=== PATIENT | female | born 1965 | race Caucasian/White ===

== ENCOUNTER 2021-01-11 17:44 | Inpatient (IN) | payer OTHER ==
[2021-01-11] MEDS ORDERED: NITROGLYCERIN OINT 1 INCH/GM PACKET TOPICAL STA (17:54)
[2021-01-11 17:56] LABS: Glucose,Whole Blood 109 mg/dL (75-99)
--- NOTE | 2021-01-11 17:58 | ED ---
General Adult HPI - General Chief complaint: Chest Pain Stated complaint: Chest Pain Time Seen by Provider: 01/11/21 17:44 Source: patient, EMS, RN notes reviewed, old records reviewed Mode of arrival: EMS Limitations: no limitations - History of Present Illness Initial comments: This is a 55-year-old female presents emergency Department with a past medical history significant for prolonged QT syndrome. Patient comes in today complaining of chest pain that started at 4:30. Patient states it radiates down her left arm into her back and up into her jaw. Patient denies shortness of breath patient denies any diaphoretic episodes. Patient states she's an occasional smoker with high blood pressure and high cholesterol and a positive family history for heart disease. Patient states the nitro may have helped just a little but the significant pain remains. Patient denies any recent fever chills or cough per patient denies any headache patient states she was lightheaded earlier and almost passed out she felt ground and did bump her chin. Patient denies any abdominal pain patient denies nausea vomiting diarrhea. - Related Data Allergies Allergy/AdvReac Type Severity Reaction Status Date / Time ondansetron [From Zofran] Allergy Abdominal Verified 01/11/21 17:46 Pain Review of Systems ROS Statement: Those systems with pertinent positive or pertinent negative responses have been documented in the HPI. ROS Other: All systems not noted in ROS Statement are negative. Past Medical History Past Medical History: Fibromyalgia Additional Past Medical History / Comment(s): Crohns, prolonged qt History of Any Multi-Drug Resistant Organisms: None Reported Past Surgical History: No Surgical Hx Reported Past Psychological History: Anxiety, Depression Smoking Status: Current every day smoker Past Alcohol Use History: None Reported Past Drug Use History: None Reported General Exam - General Exam Comments Initial Comments: GENERAL: Patient is well-developed and well-nourished. Patient is nontoxic and well- hydrated and is in mild distress. ENT: Neck is soft and supple. No significant lymphadenopathy is noted. Oropharynx is clear. Moist mucous membranes. Neck has full range of motion without eliciting any pain. EYES: The sclera were anicteric and conjunctiva were pink and moist. Extraocular movements were intact and pupils were equal round and reactive to light. Eyelids were unremarkable. PULMONARY: Unlabored respirations. Good breath sounds bilaterally. No audible rales rhonchi or wheezing was noted. CARDIOVASCULAR: There is a regular rate and rhythm without any murmurs gallops or rubs. ABDOMEN: Soft and nontender with normal bowel sounds. SKIN: Skin is clear with no lesions or rashes and otherwise unremarkable. NEUROLOGIC: Patient is alert and oriented x3. Cranial nerves II through XII are grossly int act. Motor and sensory are also intact. Normal speech, volume and content. Symmetrical smile. MUSCULOSKELETAL: Normal extremities with adequate strength and full range of motion. No lower extremity swelling or edema. No calf tenderness. LYMPHATICS: No significant lymphadenopathy is noted PSYCHIATRIC: Normal psychiatric evaluation. Limitations: no limitations Course Vital Signs 01/11/21 01/11/21 17:46 18:23 Temperature 97.6 F Pulse Rate 69 77 Respiratory 16 16 Rate Blood Pressure 103/64 118/80 O2 Sat by Pulse 97 95 Oximetry Medical Decision Making - Medical Decision Making EKG shows normal sinus rhythm at 60 bpm AK interval 154 QRS is 78 QT interval 476 QTC is 506. Patient's EKG shows no ST segment elevation that is significant. Patient does have inverted T waves in leads 3 and aVF which were not seen on the previous EKG. One of the EKGs that EMS transmitted to us came to us after the patient was in the emergency department and it does show some ST segment elevation in V2 V3 and V4 as well as the T-wave inversion in 3 and aVF. Though the criteria for STEMI on our EKG was not met the patient had significant symptoms of questionable EKG in route and so I had Dr. Forrester paged immediately her doctor to return the page at [phone] and wanted to STEMI called overhead so it was. Repeat EKG was done after the cath team was called in and it did show ST segment elevation for the first time in our department. EKG normal sinus rhythm at 72 bpm AK interval is 154 QRS was 82 QT intervals 468 QTC is 512. Patient's EKG showed ST segment elevation in V2 as well as 1 and aVL and T-wave inversions with some ST segment depression in 3 and aVF. Heparin was held because the patient's history of Crohn's disease and she was told not to take any blood thinners. Patient was given Lipitor. - Lab Data Result diagrams: 01/11/21 17:55 01/11/21 17:55 Lab Results 01/11/21 01/11/21 01/11/21 Range/Units 17:54 17:55 17:55 WBC 14.3 H (3.8-10.6) k/uL RBC 3.88 (3.80-5.40) m/uL Hgb 12.4 (11.4-16.0) gm/dL Hct 37.5 (34.0-46.0) % MCV 96.7 (80.0-100.0) fL MCH 32.1 (25.0-35.0) pg MCHC 33.2 (31.0-37.0) g/dL RDW 14.9 (11.5-15.5) % Plt Count 360 (150-450) k/uL MPV 6.9 Neutrophils % 67 % Lymphocytes % 25 % Monocytes % 4 % Eosinophils % 2 % Basophils % 0 % Neutrophils # 9.6 H (1.3-7.7) k/uL Lymphocytes # 3.5 (1.0-4.8) k/uL Monocytes # 0.6 (0-1.0) k/uL Eosinophils # 0.3 (0-0.7) k/uL Basophils # 0.1 (0-0.2) k/uL PT 10.7 (9.0-12.0) sec INR 1.0 (<1.2) APTT 29.3 (22.0-30.0) sec Sodium (137-145) mmol/L Potassium (3.5-5.1) mmol/L Chloride (98-107) mmol/L Carbon Dioxide (22-30) mmol/L Anion Gap mmol/L BUN (7-17) mg/dL Creatinine (0.52-1.04) mg/dL Est GFR (CKD-EPI)AfAm (>60 ml/min/1.73 sqM) Est GFR (CKD-EPI)NonAf (>60 ml/min/1.73 sqM) Glucose (74-99) mg/dL POC Glucose (mg/dL) 109 H (75-99) mg/dL POC Glu Leader Writer ID Selma Seema Calcium (8.4-10.2) mg/dL Magnesium (1.6-2.3) mg/dL Total Bilirubin (0.2-1.3) mg/dL AST (14-36) U/L ALT (4-34) U/L Alkaline Phosphatase (38-126) U/L Troponin I (0.000-0.034) ng/mL Total Protein (6.3-8.2) g/dL Albumin (3.5-5.0) g/dL 01/11/21 01/11/21 Range/Units 17:55 17:55 WBC (3.8-10.6) k/uL RBC (3.80-5.40) m/uL Hgb (11.4-16.0) gm/dL Hct (34.0-46.0) % MCV (80.0-100.0) fL MCH (25.0-35.0) pg MCHC (31.0-37.0) g/dL RDW (11.5-15.5) % Plt Count (150-450) k/uL MPV Neutrophils % % Lymphocytes % % Monocytes % % Eosinophils % % Basophils % % Neutrophils # (1.3-7.7) k/uL Lymphocytes # (1.0-4.8) k/uL Monocytes # (0-1.0) k/uL Eosinophils # (0-0.7) k/uL Basophils # (0-0.2) k/uL PT (9.0-12.0) sec INR (<1.2) APTT (22.0-30.0) sec Sodium 138 (137-145) mmol/L Potassium 3.8 (3.5-5.1) mmol/L Chloride 110 H (98-107) mmol/L Carbon Dioxide 21 L (22-30) mmol/L Anion Gap 7 mmol/L BUN 16 (7-17) mg/dL Creatinine 1.03 (0.52-1.04) mg/dL Est GFR (CKD-EPI)AfAm 71 (>60 ml/min/1.73 sqM) Est GFR (CKD-EPI)NonAf 61 (>60 ml/min/1.73 sqM) Glucose 113 H (74-99) mg/dL POC Glucose (mg/dL) (75-99) mg/dL POC Glu Leader Writer ID Calcium 8.6 (8.4-10.2) mg/dL Magnesium 1.8 (1.6-2.3) mg/dL Total Bilirubin 0.2 (0.2-1.3) mg/dL AST 21 (14-36) U/L ALT 13 (4-34) U/L Alkaline Phosphatase 89 (38-126) U/L Troponin I <0.012 (0.000-0.034) ng/mL Total Protein 6.7 (6.3-8.2) g/dL Albumin 3.7 (3.5-5.0) g/dL Critical Care Time Critical Care Time: Yes Total Critical Care Time: 35 Disposition Clinical Impression: Acute non-ST elevation myocardial infarction (NSTEMI) Disposition: ADMITTED IP TO THIS [facility] Time of Disposition: 18:34
[2021-01-11 18:13] LABS: Basophils # (A) 0.1 k/uL (0-0.2); Basophils % (A) 0 %; Eosinophils # (A) 0.3 k/uL (0-0.7); Eosinophils % (A) 2 %; HCT 37.5 % (34.0-46.0); HGB 12.4 gm/dL (11.4-16.0); Lymphocytes # (A) 3.5 k/uL (1.0-4.8); Lymphocytes % (A) 25 %; MCH 32.1 pg (25.0-35.0); MCHC 33.2 g/dL (31.0-37.0); MCV 96.7 fL (80.0-100.0); Mean Platelet Volume 6.9; Monocytes # (A) 0.6 k/uL (0-1.0); Monocytes % (A) 4 %; Neutrophils # (A) 9.6 k/uL (1.3-7.7); Neutrophils % (A) 67 %; Platelet Count 360 k/uL (150-450); RBC 3.88 m/uL (3.80-5.40); RDW 14.9 % (11.5-15.5); WBC 14.3 k/uL (3.8-10.6)
[2021-01-11 18:15] LABS: Partial Thromboplastin Time 29.3 sec (22.0-30.0); Prothrombin Time 10.7 sec (9.0-12.0)
[2021-01-11 18:17] LABS: Albumin 3.7 g/dL (3.5-5.0); Calcium 8.6 mg/dL (8.4-10.2); Magnesium 1.8 mg/dL (1.6-2.3); Potassium 3.8 mmol/L (3.5-5.1); Total Bilirubin 0.2 mg/dL (0.2-1.3); Total Protein 6.7 g/dL (6.3-8.2)
[2021-01-11] MEDS ORDERED: ATORVASTATIN 80 MG TAB PO STA (18:25)
--- NOTE | 2021-01-11 18:34 | XR ---
EXAMINATION TYPE: XR chest 1V DATE OF EXAM: 01/11/2021 COMPARISON: 10/20/2010 HISTORY: Chest pain TECHNIQUE: FINDINGS: Heart is normal. There is some interstitial density and subsegmental atelectasis left lung base. There are chest leads. There are no hilar masses. IMPRESSION: New interstitial density and subsegmental atelectasis in the left lower lobe compared to old exam.
[2021-01-11] MEDS ORDERED: LIDOCAINE 1% INJ 10MG/ML (20 ML MDV) SQ ONE (18:58)
[2021-01-11] MEDS ORDERED: MIDAZOLAM 2 MG/2 ML VIAL IV ONE (19:00)
[2021-01-11] MEDS ORDERED: HEPARIN SODIUM 1,000 UN/ML (10ML VL) ONE (19:02)
[2021-01-11] MEDS ORDERED: SODIUM CHLORIDE 0.9% 1,000 ML IV ONE (19:07)
[2021-01-11] MEDS ORDERED: TIROFIBAN 12.5MG-250ML NS 250 ML IV ONE ×2 (19:15)
[2021-01-11] MEDS ORDERED: TICAGRELOR 90 MG TAB ONE (19:18)
[2021-01-11] MEDS ORDERED: niCARdipine 25 MG/10 ML VIAL ONE (19:25)
[2021-01-11] MEDS ORDERED: TICAGRELOR 90 MG TAB PO ONE (19:30)
[2021-01-11] MEDS ORDERED: IOPAMIDOL-370 125ML BTL INJ ONE (19:31)
[2021-01-11] MEDS ORDERED: IOPAMIDOL-370 50ML BTL INJ ONE (19:35)
[2021-01-11 19:58] LABS: Glucose,Whole Blood 111 mg/dL (75-99)
[2021-01-11] MEDS: SODIUM CHLORIDE 0.9% 1,000 ML IV SCH (20:30)
[2021-01-11] MEDS ORDERED: HYOSCYAMINE SULFATE 0.125 MG TAB PO PRN (20:51)
[2021-01-11] MEDS ORDERED: PROCHLORPERAZINE 10 MG TAB PO PRN (20:51)
[2021-01-11] MEDS ORDERED: METOPROLOL TARTRATE 25 MG TAB PO SCH (21:00)
[2021-01-11] MEDS: LOSARTAN 25 MG TAB PO SCH (21:17)
--- NOTE | 2021-01-11 21:26 | P.HPIM ---
History of Present Illness H&P Date: 01/11/21 Chief Complaint: Chest pain History of presenting complaint: This is a pleasant 55-year-old patient of Dr. Deleon. She does follow with Dr. Angelo shepard from cardiology for arrhythmia's. She's had a prior cardiac ablation. Chronic stable medical conditions include fibromyalgia, hypertension, Crohn's, long QT, anxiety depression, arthritis. Patient been smoking off and on. Patient around 4:00 this afternoon became dizzy and nauseated developed back pain coming from the chest neck and left arm. Patient started perspiring. Decided to come into the hospital. She was taken to the director of cardiac cath lab she did get 2 stents and that's when her pain subsided. Currently nicely. Currently no chest pain. She was initially diagnosed to have acute ST elevation [place]. Review of systems: GEN.: Tired EYES: None HEENT: None NECK: None RESPIRATORY: As above CARDIOVASCULAR: As above GASTROINTESTINAL: None GENITOURINARY: None MUSCULOSKELETAL: Joint pains LYMPHATICS: None HEMATOLOGICAL: None PSYCHIATRY: None NEUROLOGICAL: None Past medical history to include: Fibromyalgia, hypertension, Crohn's disease, along daily, anxiety depression, osteomyelitis arthritis, Social history: This with 2 daughters. On disability. Smoking off and on. No alcohol. Family history: Reviewed, noncontributory to presentation Physical examination: VITAL SIGNS: 97.6, 69, 16, 103/64, 97% 2 L GENERAL: [BMI 39.9, laying in bed, awake. EYES: Pupils equal. Conjunctiva normal. HEENT: External appearance of nose and ears normal, oral cavity grossly normal. NECK: JVD not raised; masses not palpable. HEART: First and second heart sounds are normal; no edema. LUNGS: Respiratory rate normal; decreased breath sound. ABDOMEN: Soft, nontender, liver spleen not palpable, no masses palpable. PSYCH: Alert and oriented x3; mood and affect normal. NEUROLOGICAL: Cranial nerves grossly intact; no facial asymmetry, power and sensation grossly intact. LYMPHATICS: No lymph nodes palpable in the axilla and neck INVESTIGATIONS, reviewed in the clinical context: WBC 14.3 hemoglobin 12.4 platelets 360 potassium 3.8 creatinine 1.03 glucose 113 Troponin I less than 0.012 EKG tracing personally reviewed by az-ST elevation in lead V2 V3, ST depression in inferior leads Chest x-ray film personally reviewed by me-portable/no obvious infiltrate Assessment and plan: -Acute ST elevation myocardial infarction. Patient received 2 stents. Formal report pending. Aspirin, Lipitor, Brilinta -Obesity BMI 39.9 Dietitian. Weight loss measures -Essential hypertension Cozaar 25 mg daily. Lopressor 25 mg twice a day -Crohn's disease Mesalamine 0.375 g by mouth 4 times a day -Muscle spasm Baclofen 10 mg twice a day -Hyperlipidemia Lipitor 80 mg daily -Anxiety depression, controlled Patient to the ICU. Medications include aspirin Lipitor Cozaar. Lopressor. Brilinta. Follow with cardiology. 2-D echocardiogram. Care was discussed with the patient. Questions answered Past Medical History Past Medical History: Fibromyalgia, Hypertension Additional Past Medical History / Comment(s): Crohns, prolonged qt, anxiety, depression, arthritis, History of Any Multi-Drug Resistant Organisms: None Reported Past Surgical History: Appendectomy, Cardiac Ablation, Section, Heart Catheterization Additional Past Surgical History / Comment(s): heart cath 2009 approx. no interventions done, carpal tunnel surgery Past Anesthesia/Blood Transfusion Reactions: No Reported Reaction Past Psychological History: Anxiety, Depression Smoking Status: Current some day smoker Past Alcohol Use History: None Reported Past Drug Use History: None Reported Medications and Allergies Home Medications Medication Instructions Recorded Confirmed Type Adalimumab [Humira(Cf) Pen] 40 mg SQ MO 01/11/21 01/11/21 History Alendronate Sodium 70 mg PO FR 01/11/21 01/11/21 History Atorvastatin [Lipitor] 80 mg PO DAILY 01/11/21 01/11/21 History Baclofen [Lioresal] 10 mg PO BID 01/11/21 01/11/21 History Diphenoxylate HCl/Atropine 1 tab PO QID PRN 01/11/21 01/11/21 History [Lomotil 2.5-0.025 mg Tablet] Ergocalciferol [Vitamin D2 (1250 1,250 mcg PO STILL 01/11/21 01/11/21 History Mcg = 56733 Iu)] Famotidine [Pepcid] 40 mg PO DAILY 01/11/21 01/11/21 History Hyoscyamine Sulfate [Levsin] 0.125 mg PO Q4H PRN 01/11/21 01/11/21 History Magnesium Oxide 400 mg PO DAILY 01/11/21 01/11/21 History Mesalamine [Mesalamine ER] 0.375 gm PO QID 01/11/21 01/11/21 History Prochlorperazine [Compazine] 10 mg PO Q8H PRN 01/11/21 01/11/21 History Promethazine Suppository 25 mg RECTAL BID PRN 01/11/21 01/11/21 History [Phenergan] Spironolactone [Aldactone] 25 mg PO DAILY 01/11/21 01/11/21 History Triamcinolone 0.5% Cream [Kenalog 1 applic TOPICAL QID PRN 01/11/21 01/11/21 History 0.5% Cream] Valsartan 320 mg PO DAILY 01/11/21 01/11/21 History buPROPion HCL [buPROPion HCL SR] 150 mg PO DIRECTED 01/11/21 01/11/21 History busPIRone HCL 15 mg PO DIRECTED 01/11/21 01/11/21 History Allergies Allergy/AdvReac Type Severity Reaction Status Date / Time ondansetron [From Zofran] Allergy Abdominal Verified 01/11/21 20:45 Pain Physical Exam Vitals: Vital Signs Temp Pulse Resp BP Pulse Ox 01/11/21 18:23 77 16 118/80 95 01/11/21 17:46 97.6 F 69 16 103/64 97 Intake and Output 01/11/21 01/11/21 01/11/21 06:59 14:59 22:59 Intake Total 646 Balance 646 Intake: IV 646 Other: Weight 95.9 kg Results CBC & Chem 7: 01/11/21 17:55 01/11/21 17:55 Labs: Abnormal Lab Results - Last 24 Hours (Table) 01/11/21 01/11/21 01/11/21 Range/Units 17:54 17:55 17:55 WBC 14.3 H (3.8-10.6) k/uL Neutrophils # 9.6 H (1.3-7.7) k/uL Chloride 110 H (98-107) mmol/L Carbon Dioxide 21 L (22-30) mmol/L Glucose 113 H (74-99) mg/dL POC Glucose (mg/dL) 109 H (75-99) mg/dL 01/11/21 Range/Units 19:56 WBC (3.8-10.6) k/uL Neutrophils # (1.3-7.7) k/uL Chloride (98-107) mmol/L Carbon Dioxide (22-30) mmol/L Glucose (74-99) mg/dL POC Glucose (mg/dL) 111 H (75-99) mg/dL Thrombosis Risk Factor Assmnt - Choose All That Apply Each Factor Represents 1 point: Acute WA, Age 41-60 years Thrombosis Risk Factor Assessment Total Risk Factor Score: 2 Thrombosis Risk Factor Assessment Level: Low Risk
--- NOTE | 2021-01-11 21:26 | CONS ---
CONSULTATION CHIEF COMPLAINT: Chest pain. HISTORY OF PRESENT ILLNESS: This is a 55-year-old lady with history of dyslipidemia, prolonged QT interval, and hypertension who presented to the hospital complaining of sudden onset chest pain. Her chest discomfort started around 4:30 this evening and the patient continued to have chest pain that she describes as a pressure in the precordial area radiating to left arm. EKG shows sinus rhythm with ST elevations in 1 aVL and V2 with T-wave inversions in the inferior leads suggestive of acute anterolateral myocardial infarction. She has EKG changes are new compared to an EKG done in 2010. At the time of my evaluation, patient appears comfortable at rest, but still has chest pain and she is hemodynamically stable. Given her clinical presentation and EKG changes, I advised her to undergo emergent cardiac catheterization. She understood risks, benefits. PAST MEDICAL HISTORY: Significant for hypertension, dyslipidemia, arthritis. ALLERGIES: ZOFRAN. MEDICATIONS: Include atorvastatin 80 daily, bupropion 150 daily, famotidine, hyoscyamine, , spironolactone, magnesium, . FAMILY HISTORY: Significant for premature coronary artery disease in her brother. SOCIAL HISTORY: Significant for smoking. There is no history of EtOH abuse or drug abuse. REVIEW OF SYSTEMS: HEENT is unremarkable. CARDIAC as described above. RESPIRATORY as described above. GI negative. negative. ALLERGY/IMMUNOLOGY: Negative. SKIN negative. MUSCULOSKELETAL negative. ENDOCRINE negative. DERM: Negative. CONSTITUTIONAL negative. ONCOLOGICAL negative. TAFFY CANDY MAKER negative. PSYCHOSOCIAL negative. CONSTITUTIONAL negative. Rest of the system review is not relevant. EXAM: Comfortable at rest. Vital signs are stable. There is no jugular venous distention. Carotid upstroke is normal. There is no bruit. CHEST exam reveals good air entry bilaterally. HEART exam reveals first and second heart sounds. No gallop. No murmur. No rub. ABDOMEN is soft, nontender. Examination of EXTREMITIES did not reveal any edema. Peripheral pulses are felt. LABORATORY DATA: Labs are pending. ASSESSMENT: Acute anterolateral myocardial infarction. PLANS: The patient will undergo cardiac catheterization. Will decide on further course of action based on the cath findings. MMODL / IJN: [id number] /
--- NOTE | 2021-01-11 21:55 | PTCA ---
PERCUTANEOUSTRANS CORORONARY ANGIOGRAPHY DATE OF SERVICE: 01/11/2021. PROCEDURE: PTCA and stenting of a totally occluded proximal LAD in the setting of an acute anterior ST elevation DC. PERFORMED BY: Dr. Ana Bro. Moderate conscious sedation time was 32 minutes. The patient was administered Versed. Oxygen saturation, hemodynamics and EKG were monitored closely. CLINICAL HISTORY: Mrs. Kerry Garcia is a 55-year-old lady who smokes more than a pack a day, has hypertension, hypercholesterolemia, Crohn's disease and rheumatoid arthritis. She came into the hospital with chest pain, had anterior ST elevation that was more pronounced on a repeat EKG in the ER. She was seen and evaluated by Dr. Forrester who performed the cardiac cath which revealed total occlusion of the LAD after a small septal branch. There was a significant thrombus burden. I performed intervention expeditiously and then did selective angiography of the right coronary artery and checked LV pressures. PROCEDURE NOTE: The existing 6-Bulgarian introducer in the right femoral artery was used to perform procedure. JL3.5 guide catheter was used to cannulate the left coronary artery. A run- through wire was used to cross the lesion. A 15 mm long 3.0 NC Trek balloon was used to pre-dilate the lesion. I then deployed a 3.5 caliber 15 mm long Xience stent in the lesion just distal to the site of total occlusion and another 12 mm 4.0 caliber Xience stent proximal to the previous stent telescoping into it. The patient had some sluggish flow. I gave some nicardipine. The flow improved. Patient received heparin of about 6000 units and also Aggrastat infusion was given. ACT was 252. Excellent angiographic result was achieved with a good TAM-3 flow. Improvement in EKG and resolution of chest pain. The sheath was taken out and Angio-Seal device used to secure hemostasis. A Femstop was applied because of some oozing. Results were discussed with the patient. There was no family available. She was sent to the ICU in a stable condition. Excellent angiographic result without complication was achieved. Two drug-eluting stents were deployed in the totally occluded LAD with excellent angiographic result and flow. The RCA and circumflex are free of significant disease. The left ventricular end-diastolic pressure was elevated at 20 mmHg. There was no gradient across aortic valve. MMODL / IJN: [id number] /
--- NOTE | 2021-01-11 21:59 | CC ---
CARDIAC CATHETERIZATION REPORT INDICATION: Acute anterolateral myocardial infarction. PROCEDURE NOTE: After obtaining informed consent, left heart catheterization and coronary angiogram were performed via the right femoral artery using standard Tammy catheters. The patient tolerated the procedure well without any obvious immediate complications. Patient received moderate conscious sedation. Total sedation time was 10 minutes. I obtained images of the left system, the right system, and the hemodynamics were obtained by Dr. Ana Bro, the energy systems laboratory director, after he finished the angioplasty. FINDINGS: HEMODYNAMICS: Left ventricular end-diastolic pressure is 24 mm. There is no significant gradient across the aortic valve. LEFT VENTRICULOGRAM: Left ventriculogram was not performed. ANGIOGRAPHIC DATA: Left main coronary artery. Left main coronary artery is a normal-sized vessel and is free of stenosis. Divides into left anterior descending coronary artery and circumflex coronary artery. Circumflex coronary artery and its branches are free of significant stenosis. LAD is totally occluded in its proximal portion. Right coronary artery shows mild to moderate nonobstructive disease in the proximal portion. CONCLUSION: Acutely occluded left anterior descending coronary artery with acute anterior wall myocardial infarction. PLAN: Patient will undergo emergent angioplasty. MMODL / IJN: [id number] /
[2021-01-11] MEDS: BACLOFEN 10 MG TAB PO SCH (22:18)
[2021-01-11] MEDS: amLODIPine 10 MG TAB PO SCH (23:13)
[2021-01-11] MEDS: BALSALAZIDE DISODIUM 750 MG CAPSULE PO SCH (23:23)
[2021-01-12] MEDS ORDERED: LOSARTAN 25 MG TAB PO STA (01:38)
[2021-01-12 04:28] LABS: Basophils # (A) 0.1 k/uL (0-0.2); Basophils % (A) 0 %; Eosinophils % (A) 0 %; HCT 39.1 % (34.0-46.0); HGB 12.7 gm/dL (11.4-16.0); Lymphocytes # (A) 2.6 k/uL (1.0-4.8); Lymphocytes % (A) 18 %; MCH 31.7 pg (25.0-35.0); MCHC 32.5 g/dL (31.0-37.0); MCV 97.7 fL (80.0-100.0); Monocytes # (A) 0.4 k/uL (0-1.0); Monocytes % (A) 3 %; Neutrophils # (A) 11.4 k/uL (1.3-7.7); Neutrophils % (A) 78 %; Platelet Count 366 k/uL (150-450); RBC 4.01 m/uL (3.80-5.40); WBC 14.5 k/uL (3.8-10.6)
[2021-01-12 04:55] LABS: ALT 42 U/L (4-34); AST 337 U/L (14-36); African American GFR (CKD) >90 (>60 ml/min/1.73 sqM); Alkaline Phosphatase 96 U/L (38-126); Anion Gap 7 mmol/L; Blood Urea Nitrogen 13 mg/dL (7-17); Calcium 9.1 mg/dL (8.4-10.2); Carbon Dioxide 23 mmol/L (22-30); Chloride 106 mmol/L (98-107); Glucose 126 mg/dL (74-99); Non-African American GFR(CKD) 86 (>60 ml/min/1.73 sqM); Potassium 4.2 mmol/L (3.5-5.1); Sodium 136 mmol/L (137-145); Total Bilirubin 0.4 mg/dL (0.2-1.3); Total Protein 7.1 g/dL (6.3-8.2)
[2021-01-12] MEDS ORDERED: hydrALAZINE HCL 50 MG TAB PO SCH (05:30)
[2021-01-12] MEDS ORDERED: hydrALAZINE HCL 25 MG TAB PO SCH (05:45)
[2021-01-12] MEDS ORDERED: carvediloL 3.125 MG TAB PO SCH (08:30)
[2021-01-12] MEDS ORDERED: carvediloL 6.25 MG TAB PO SCH (08:30)
[2021-01-12] MEDS ORDERED: TICAGRELOR 90 MG TAB PO SCH (09:00)
[2021-01-12] MEDS ORDERED: METOPROLOL TARTRATE 50 MG TAB PO SCH (09:00)
[2021-01-12] MEDS ORDERED: ASPIRIN 81 MG PO SCH (09:00)
[2021-01-12] MEDS ORDERED: PROMETHAZINE 25 MG TAB PO PRN (09:37)
--- NOTE | 2021-01-12 09:51 | ECHOF ---
Referral Reason:s/p stemi with stent placement MEASUREMENTS -------- HEIGHT: 152.4 cm WEIGHT: 95.7 kg BP: RVIDd: 3.6 cm (< 3.3) IVSd: 1.5 cm (0.6 - 1.1) LVIDd: 5.3 cm (3.9 - 5.3) LVPWd: 1.3 cm (0.6 - 1.1) IVSs: 1.6 cm LVIDs: 4.7 cm LVPWs: 1.3 cm LAESV Index (A-L): 24.49 ml/m Ao Diam: 3.6 cm (2.0 - 3.7) AV Cusp: 1.3 cm (1.5 - 2.6) MV EXCURSION: 16.963 mm (> 18.000) MV EF SLOPE: 94 mm/s (70 - 150) EPSS: 0.4 cm MV E Terry: 0.56 m/s MV DecT: 226 ms MV A Terry: 0.94 m/s MV E/A Ratio: 0.60 RAP: 5.00 mmHg RVSP: 16.18 mmHg FINDINGS -------- Sinus rhythm. This was a techncally difficult study with suboptimal views, , Lumason utilized for enhancement of im ages. The left ventricular size is normal. There is moderate concentric left ventricular hypertrophy. O verall left ventricular systolic function is moderate-severely impaired with, an EF between 30 - 35 % . Anterseptal Hypokinesis Lateral hypokinesis Inferior Hypokinesis Septal Hypokinesis Beaumont Hypokinesis. The right ventricle is normal in size. Normal LA size by volume 22+/-6 ml/m2. The right atrial size is normal. 5.0mg OF Lumason UTLIZED: 2 OR MORE WALL SEGMENTS NOT VISUALIZED. There is mild aortic valve sclerosis. There is no evidence of aortic regurgitation. Mild mitral regurgitation is present. Mild tricuspid regurgitation present. Right ventricular systolic pressure is normal at < 35 mmHg. There is no pulmonic regurgitation present. There is a filling defect at the apex suggestive of apical thrombus Echo free space represents a pericardial fat pad. CONCLUSIONS -------- 1. This was a techncally difficult study with suboptimal views, , Lumason utilized for enhancement of images. 2. The left ventricular size is normal. 3. There is moderate concentric left ventricular hypertrophy. 4. Overall left ventricular systolic function is moderate-severely impaired with, an EF between 30 - 35 %. 5. Anterseptal Hypokinesis 6. Lateral hypokinesis 7. Inferior Hypokinesis 8. Septal Hypokinesis 9. Beaumont Hypokinesis. 10. The right ventricle is normal in size. 11. Normal LA size by volume 22+/-6 ml/m2. 12. The right atrial size is normal. 13. 5.0mg OF Lumason UTLIZED: 2 OR MORE WALL SEGMENTS NOT VISUALIZED. 14. There is mild aortic valve sclerosis. 15. Mild mitral regurgitation is present. 16. Mild tricuspid regurgitation present. 17. There is a filling defect at the apex suggestive of apical thrombus 18. Echo free space represents a pericardial fat pad. FOOD SERVER: Kait Frederick RDCS
--- NOTE | 2021-01-12 10:28 | P.PN ---
Subjective Progress Note Date: 01/12/21 HISTORY OF PRESENT ILLNESS: This is a 55-year-old female with a history of SVT and previous ablation and V. fib arrest after receiving Zofran with a prolonged QT who presented to the hospital yesterday with chest pain. Patient follows in the office with Dr. Lawrence. She was found to have a STEMI. She underwent cardiac catheterization with Dr. Forrester revealing acutely occluded left anterior descending artery with acute anterior wall myocardial infarction. Patient underwent LAD stenting [address] Bro. Patient examined this morning at the bedside. Patient currently denies chest pain or pressure she denies shortness of breath. PHYSICAL EXAM: VITAL SIGNS: Reviewed. GENERAL: Well-developed in no acute distress. NECK: Supple. No JVD or thyromegaly LUNGS: Respirations even and unlabored. Lungs essentially clear to auscultation bilaterally. HEART: Regular rate and rhythm. S1 and S2 heard. EXTREMITIES: Normal range of motion. No clubbing or cyanosis. Peripheral pulses intact. No lower extremity edema. Right groin soft with no hematoma noted. ASSESSMENT: STEMI, status post LAD stenting 2 Hypertension Hyperlipidemia Crohn's disease History of SVT with previous ablation History of V. fib arrest after receiving Zofran with prolonged QT PLAN: 2-D echo ordered. Await results Continue current cardiac medications including aspirin, Lipitor, Brilinta, and Cozaar Discontinue metoprolol. Change to Coreg 6.25mg BID Further recommendations pending patient course Nurse practitioner note has been reviewed by physician. Signing provider agrees with the documented findings, assessment, and plan of care. Objective - Vital Signs Vital signs: Vital Signs Temp 98 F 01/12/21 08:00 Pulse 96 01/12/21 10:00 Resp 36 H 01/12/21 10:00 BP 166/110 01/12/21 10:00 Pulse Ox 92 L 01/12/21 10:00 Intake & Output 01/11/21 01/12/21 01/12/21 18:59 06:59 18:59 Intake Total 1321 0 Output Total 1001 401 Balance 320 -401 Weight 93.44 kg 96 kg Intake: IV 1021 0 Sodium Chloride 0.9% 1, 375 0 000 ml @ 75 mls/hr IV . [id number] [facility] Rx#:[id number] Oral 300 Output: Urine 1000 400 Emesis 1 1 Other: # Voids 1 - Labs CBC & Chem 7: 01/12/21 04:05 01/12/21 04:05 Labs: Abnormal Lab Results - Last 24 Hours (Table) 01/11/21 01/11/21 01/11/21 Range/Units 17:54 17:55 17:55 WBC 14.3 H (3.8-10.6) k/uL Neutrophils # 9.6 H (1.3-7.7) k/uL Sodium (137-145) mmol/L Chloride 110 H (98-107) mmol/L Carbon Dioxide 21 L (22-30) mmol/L Glucose 113 H (74-99) mg/dL POC Glucose (mg/dL) 109 H (75-99) mg/dL AST (14-36) U/L ALT (4-34) U/L Troponin I (0.000-0.034) ng/mL 01/11/21 01/11/21 01/12/21 Range/Units 19:56 22:00 01:08 WBC (3.8-10.6) k/uL Neutrophils # (1.3-7.7) k/uL Sodium (137-145) mmol/L Chloride (98-107) mmol/L Carbon Dioxide (22-30) mmol/L Glucose (74-99) mg/dL POC Glucose (mg/dL) 111 H (75-99) mg/dL AST (14-36) U/L ALT (4-34) U/L Troponin I 106.000 H* 140.000 H* (0.000-0.034) ng/mL 01/12/21 01/12/21 Range/Units 04:05 04:05 WBC 14.5 H (3.8-10.6) k/uL Neutrophils # 11.4 H (1.3-7.7) k/uL Sodium 136 L (137-145) mmol/L Chloride (98-107) mmol/L Carbon Dioxide (22-30) mmol/L Glucose 126 H (74-99) mg/dL POC Glucose (mg/dL) (75-99) mg/dL AST 337 H (14-36) U/L ALT 42 H (4-34) U/L Troponin I (0.000-0.034) ng/mL
[2021-01-12] MEDS: amLODIPine 10 MG TAB PO SCH (11:57)
[2021-01-12] MEDS: BACLOFEN 10 MG TAB PO SCH ×2 (11:57→21:27)
[2021-01-12] MEDS: BALSALAZIDE DISODIUM 750 MG CAPSULE PO SCH ×3 (11:57→21:28)
[2021-01-12] MEDS: LOSARTAN 25 MG TAB PO SCH (11:57)
[2021-01-12] MEDS: SPIRONOLACTONE 25 MG TAB PO SCH (12:29)
[2021-01-12] MEDS: SCOPOLAMINE 1.5MG/72HR PATCH TRANSDERM SCH (13:00)
[2021-01-12] MEDS ORDERED: METOCLOPRAMIDE 5 MG/ML 2 ML VIAL IVP PRN (13:22)
--- NOTE | 2021-01-12 14:12 | P.PN ---
Progress Note - Text Progress Note Date: 01/12/21 Chief Complaint: Chest pain History of presenting complaint: This is a pleasant 55-year-old patient of Dr. Deleon. She does follow with Dr. Angelo shepard from cardiology for arrhythmia's. She's had a prior cardiac ablation. Chronic stable medical conditions include fibromyalgia, hypertension, Crohn's, long QT, anxiety depression, arthritis. Patient been smoking off and on. Patient around 4:00 this afternoon became dizzy and nauseated developed back pain coming from the chest neck and left arm. Patient started perspiring. Decided to come into the hospital. She was taken to the [facility] she did get 2 stents/PTCa proximally occluded LAD and that's when her pain subsided. Currently nicely. Currently no chest pain. She was initially diagnosed to have acute ST elevation OK. January 12: Overnight patient's blood pressure been running high. Having nausea vomiting. Different antiemetics were tried. I prescribed this morning scopolamine patch. Told to avoid water. Patient has a right groin FemoStop. Having right lower abdomen abdominal pain. Review of systems: Was done for constitutional, cardiovascular, GI, pulmonary. relevant finding as above Active Medications Apixaban (Apixaban 5 Mg Tab) 5 mg PO BID [facility]; Protocol Aspirin (Aspirin 81 Mg) 81 mg PO DAILY [facility] Last Admin: 01/12/21 11:57 Dose: Not Given Documented by: Atorvastatin Calcium (Atorvastatin 80 Mg Tab) [address] [facility] Baclofen (Baclofen 10 Mg Tab) 10 mg PO BID [facility] Last Admin: 01/12/21 11:57 Dose: Not Given Documented by: Balsalazide (Balsalazide Disodium 750 Mg Capsule) 2,250 mg PO TID [facility] Last Admin: 01/12/21 11:57 Dose: Not Given Documented by: Carvedilol (Carvedilol 6.25 Mg Tab) 6.25 mg PO BID-W/MEALS [facility] Last Admin: 01/12/21 11:57 Dose: Not Given Documented by: Hyoscyamine (Hyoscyamine Sulfate 0.125 Mg Tab) 0.125 mg PO Q4H PRN PRN Reason: ibs Metoclopramide HCl (Metoclopramide 5 Mg/Ml 2 Ml Vial) 10 mg IVP Q8H PRN PRN Reason: Nausea And Vomiting Last Admin: 01/12/21 13:33 Dose: 10 mg Documented by: Non-Formulary Medication (Adalimumab [Humira(Cf) Pen]) 40 mg SQ MO [facility] Promethazine HCl (Promethazine 25 Mg Tab) 25 mg PO Q6HR PRN PRN Reason: Vomiting Last Admin: 01/12/21 10:35 Dose: 25 mg Documented by: Scopolamine (Scopolamine 1.5mg/72hr Patch) 1 patch TRANSDERM Q72H [facility] Last Admin: 01/12/21 13:00 Dose: 1 patch Documented by: Spironolactone (Spironolactone 25 Mg Tab) 25 mg PO DAILY [facility] Last Admin: 01/12/21 12:29 Dose: Not Given Documented by: Ticagrelor (Ticagrelor 90 Mg Tab) 90 mg PO BID [facility] Last Admin: 01/12/21 11:57 Dose: Not Given Documented by: Valsartan (Valsartan 80 Mg Tab) 80 mg PO BID [facility] Past medical history to include: Fibromyalgia, hypertension, Crohn's disease, along daily, anxiety depression, osteomyelitis arthritis, Social history: This with 2 daughters. On disability. Smoking off and on. No alcohol. Family history: Reviewed, noncontributory to presentation Physical examination: VITAL SIGNS: 98, 95, 30, 156/95, 90% on room air GENERAL: Laying in bed, awake, but anxious EYES: Pupils equal. Conjunctiva normal. HEENT: External appearance of nose and ears normal, oral cavity grossly normal. NECK: JVD not raised; masses not palpable. HEART: First and second heart sounds are normal; no edema. LUNGS: Respiratory rate normal; decreased breath sound. ABDOMEN: Soft, right lower quadrant tenderness, no guarding rigidity, liver spleen not palpable, no masses palpable. Right groin FemoStop PSYCH: Alert and oriented x3; mood and affect normal. INVESTIGATIONS, reviewed in the clinical context: January 12: WBC 14.5 hemoglobin 12.7 potassium 4.2 creatinine 0.78 WBC 14.3 hemoglobin 12.4 platelets 360 potassium 3.8 creatinine 1.03 glucose 113 Troponin I less than 0.012 EKG tracing personally reviewed by me-ST elevation in lead V2 V3, ST depression in inferior leads Chest x-ray film personally reviewed by me-portable/no obvious infiltrate Assessment and plan: -Acute ST elevation myocardial infarction. Proximal LAD PTCA/ 2 stents. Aspirin, Lipitor, Brilinta -Obesity BMI 39.9 Dietitian. Weight loss measures -Essential hypertension Cozaar 25 mg daily. Coreg 6.25 twice a day. Valsartan 80 mg twice a day -Crohn's disease Mesalamine 0.375 g by mouth 4 times a day -Muscle spasm Baclofen 10 mg twice a day -Hyperlipidemia Lipitor 80 mg daily -Anxiety depression, controlled -Persistent nausea with some vomiting Scopolamine patch. Reglan 10 mg every 8. -Right lower quadrant tenderness. No guarding rigidity. FemoStop still in place from last night. stat CBC and a ultrasound While eyes during my dictation nurse told me that patient had a bloody bowel movement. GI has been consulted. Follow with cardiology. Right groin ultrasound-urgent. Follow
[2021-01-12] MEDS ORDERED: IOPAMIDOL CONTRAST (ORAL USE) VIAL PO PRN (14:47)
--- NOTE | 2021-01-12 15:09 | P.CONS ---
History of Present Illness - Reason for Consult Consult date: 01/12/21 Crohn's disease Requesting physician: Peewee Vallejo - Chief Complaint chest pain - History of Present Illness This is a 55-year-old white female with a past medical history of SVT with previous ablation and V. fib cardiac arrest after receiving Zofran for prolonged QT, fibromyalgia, anxiety, Crohn's disease, and current smoker who presented to the emergency department yesterday evening with complaints of chest pain that was radiating down her left arm and into her back and along her jaw. A STEMI was called on the patient and she went for cardiac catheterization and subsequently underwent LAD stenting 2 yesterday evening. She was given a dose of Brilinta yesterday evening. This morning she was given a dose of Eliquis and Brilinta however patient has had nausea and vomiting since this morning and was unable to keep any of her pills down. This afternoon she continues to have nausea and vomiting, abdominal pain, and had a large loose bowel movement with bright red blood, and multiple clots. The patient states she's started having abdominal pain this morning, she's had multiple episodes of nausea and vomiting. Patient has a history of Crohn's disease diagnosed approximately 30 years ago and at that time underwent a bowel resection. She has been seeing [facility] for treatment of her Crohn's disease. She takes Humira weekly, mesalamine, and Levsin for her Crohn's disease. She states her Crohn's has been under control. She states she does have 6-16 bowel movements a day, which are loose, nonbloody. Today is her first episode of having bloody bowel movement. She denies any coffee-ground emesis or hematemesis. States her last colonoscopy was less than 5 years ago at [facility], she was scheduled to have a colonoscopy on December 29 however her mother was in the hospital and she had to cancel. She's been afebrile. Patient states 10 years ago she had issues with her heart and was given anticoagulation and had a similar reaction with a lower GI hemorrhage. She states she had had multiple transfusions at that time. Admitting labs include WBC 14.3, hemoglobin 12.4, hematocrit 37, platelet count 360,000, total bilirubin 0.2, alkaline phosphatase 89, AST 21, ALT 13. Today's labs WBC 14.5, hemoglobin 12.7, hematocrit 39, platelet count 366,000, total bilirubin 0.4, alkaline phosphatase 96, AST 337, ALT 42. Review of Systems REVIEW OF SYSTEMS: CARDIOPULMONARY: Descended with chest pain. No complaints of chest pain or shortness of breath at this time. Gastrointestinal: Diffuse abdominal pain, greatest in lower abdomen.. Nausea and vomiting. No hematemesis, coffee-ground emesis. Diarrhea, bloody stool with clots. GENITOURINARY: No dysuria or hematuria. MUSCULOSKELETAL: Reports normal range of motion., Joint pain. SKIN: No rashes. No jaundice. ENDOCRINE: No chills, fevers. No excessive weight gain or loss. No polydipsia or polyuria. PSYCHIATRIC: Unremarkable. NEUROLOGY: No change in mental status. Denies dizziness, headache. ENT: Vision unremarkable. CONSTITUTIONAL: No recent weight loss. No fever, chills, night sweats. Past Medical History Past Medical History: Fibromyalgia, Hypertension Additional Past Medical History / Comment(s): Crohns, prolonged qt, anxiety, depression, arthritis, History of Any Multi-Drug Resistant Organisms: None Reported Past Surgical History: Appendectomy, Cardiac Ablation, Section, Heart Catheterization Additional Past Surgical History / Comment(s): heart cath 2009 approx. no interventions done, carpal tunnel surgery Past Anesthesia/Blood Transfusion Reactions: No Reported Reaction Past Psychological History: Anxiety, Depression Smoking Status: Current some day smoker Past Alcohol Use History: None Reported Past Drug Use History: None Reported Medications and Allergies Home Medications Medication Instructions Recorded Confirmed Type Adalimumab [Humira(Cf) Pen] 40 mg SQ MO 01/11/21 01/11/21 History Alendronate Sodium 70 mg PO FR 01/11/21 01/11/21 History Atorvastatin [Lipitor] 80 mg PO DAILY 01/11/21 01/11/21 History Baclofen [Lioresal] 10 mg PO BID 01/11/21 01/11/21 History Diphenoxylate HCl/Atropine 1 tab PO QID PRN 01/11/21 01/11/21 History [Lomotil 2.5-0.025 mg Tablet] Ergocalciferol [Vitamin D2 (1250 1,250 mcg PO STILL 01/11/21 01/11/21 History Mcg = 73088 Iu)] Famotidine [Pepcid] 40 mg PO DAILY 01/11/21 01/11/21 History Hyoscyamine Sulfate [Levsin] 0.125 mg PO Q4H PRN 01/11/21 01/11/21 History Magnesium Oxide 400 mg PO DAILY 01/11/21 01/11/21 History Mesalamine [Mesalamine ER] 0.375 gm PO QID 01/11/21 01/11/21 History Prochlorperazine [Compazine] 10 mg PO Q8H PRN 01/11/21 01/11/21 History Promethazine Suppository 25 mg RECTAL BID PRN 01/11/21 01/11/21 History [Phenergan] Spironolactone [Aldactone] 25 mg PO DAILY 01/11/21 01/11/21 History Triamcinolone 0.5% Cream [Kenalog 1 applic TOPICAL QID PRN 01/11/21 01/11/21 History 0.5% Cream] Valsartan 320 mg PO DAILY 01/11/21 01/11/21 History buPROPion HCL [buPROPion HCL SR] 150 mg PO BID 01/11/21 01/12/21 History busPIRone HCL 15 mg PO BID 01/11/21 01/12/21 History Allergies Allergy/AdvReac Type Severity Reaction Status Date / Time ondansetron [From Zofran] Allergy Abdominal Verified 01/11/21 20:45 Pain Physical Exam Vitals: Vital Signs Temp Pulse Resp BP Pulse Ox 01/12/21 14:00 98 36 H 183/94 94 L 01/12/21 13:00 95 13 158/99 94 L 01/12/21 12:00 100 18 157/121 93 L 01/12/21 11:00 112 H 11 L 168/105 95 01/12/21 10:00 96 36 H 166/110 92 L 01/12/21 09:00 95 32 H 156/95 90 L 01/12/21 08:00 98 F 79 21 169/85 92 L 01/12/21 07:00 93 16 166/94 90 L 01/12/21 06:30 87 27 H 178/94 90 L 01/12/21 06:00 73 29 H 171/116 92 L 01/12/21 05:30 79 15 159/115 90 L 01/12/21 05:00 66 21 161/108 91 L 01/12/21 04:30 77 24 161/105 92 L 01/12/21 04:00 98.0 F 67 20 162/113 94 L 01/12/21 03:30 78 20 165/108 91 L 01/12/21 03:00 73 24 177/98 96 01/12/21 02:30 67 22 172/87 91 L 01/12/21 02:00 80 22 172/112 91 L 01/12/21 01:30 67 29 H 170/90 92 L 01/12/21 01:00 69 20 155/111 94 L 01/12/21 00:30 75 16 161/110 93 L 01/12/21 00:00 97.7 F 70 28 H 143/108 94 L 01/11/21 23:30 69 33 H 164/106 96 01/11/21 23:00 64 26 H 175/103 91 L 01/11/21 22:30 73 24 153/107 95 01/11/21 22:00 70 14 153/113 96 01/11/21 21:30 98 22 157/100 93 L 01/11/21 21:00 85 18 150/98 93 L 01/11/21 20:30 84 14 154/101 91 L 01/11/21 18:23 77 16 118/80 95 01/11/21 17:46 97.6 F 69 16 103/64 97 Intake and Output 01/11/21 01/12/21 01/12/21 22:59 06:59 14:59 Intake Total 646 675 0 Output Total 1001 405 Balance 646 -326 -405 Intake: IV 646 375 0 Sodium Chloride 0.9% 1, 375 0 000 ml @ 75 mls/hr IV . [id number] [facility] Rx#:[id number] Oral 300 Output: Urine 1000 400 Emesis 1 5 Other: # Voids 1 # Bowel Movements 1 Weight 95.9 kg 96 kg General appearance: The patient is alert, oriented, appears in no acute distress. HET: Head is normocephalic and atraumatic. Conjunctiva pink. Sclera anicteric. Neck: Supple without lymphadenopathy. Trachea midline. Heart: S1 S2. Regular rate and rhythm. Lungs: Clear to auscultation. Abdomen: Soft, diffuse tenderness, greatest in lower abdomen, nondistended with bowel sounds. No guarding or rigidity. Skin: No rashes. No jaundice. Extremities: Normal skin color and turgor. No pedal edema. Neurological: No focal deficits. Alert and oriented 3.. Results CBC & Chem 7: 01/12/21 04:05 01/12/21 04:05 Labs: Abnormal Lab Results - Last 24 Hours (Table) 01/11/21 01/11/21 01/11/21 Range/Units 17:54 17:55 17:55 WBC 14.3 H (3.8-10.6) k/uL Neutrophils # 9.6 H (1.3-7.7) k/uL Sodium (137-145) mmol/L Chloride 110 H (98-107) mmol/L Carbon Dioxide 21 L (22-30) mmol/L Glucose 113 H (74-99) mg/dL POC Glucose (mg/dL) 109 H (75-99) mg/dL AST (14-36) U/L ALT (4-34) U/L Troponin I (0.000-0.034) ng/mL 01/11/21 01/11/21 01/12/21 Range/Units 19:56 22:00 01:08 WBC (3.8-10.6) k/uL Neutrophils # (1.3-7.7) k/uL Sodium (137-145) mmol/L Chloride (98-107) mmol/L Carbon Dioxide (22-30) mmol/L Glucose (74-99) mg/dL POC Glucose (mg/dL) 111 H (75-99) mg/dL AST (14-36) U/L ALT (4-34) U/L Troponin I 106.000 H* 140.000 H* (0.000-0.034) ng/mL 01/12/21 01/12/21 Range/Units 04:05 04:05 WBC 14.5 H (3.8-10.6) k/uL Neutrophils # 11.4 H (1.3-7.7) k/uL Sodium 136 L (137-145) mmol/L Chloride (98-107) mmol/L Carbon Dioxide (22-30) mmol/L Glucose 126 H (74-99) mg/dL POC Glucose (mg/dL) (75-99) mg/dL AST 337 H (14-36) U/L ALT 42 H (4-34) U/L Troponin I (0.000-0.034) ng/mL Assessment and Plan (1) Crohn's disease Narrative/Plan: 55-year-old who presented to the emergency department yesterday with complaints of chest pain radiating to her back and left arm and along jawline with a past medical history of Crohn's disease, SVT with previous ablation, V. fib arrest after receiving Zofran, anxiety, and fibromyalgia. STEMI was called on the patient, she underwent cardiac catheterization revealing an acutely occluded left anterior descending artery with acute anterior wall myocardial infarction. She then underwent LAD stenting 2. She was started on Brilinta and Eliquis. She did receive 1 dose of Brilinta yesterday evening. This morning she started with nausea and vomiting along with abdominal pain. She was unable to keep down her Brilinta on Eliquis. This afternoon she started having loose bowels with bright red blood and multiple clots. The patient has been maintained on Humira, mesalamine, and Levsin and followed with Day Lala from gastroenterology. Her last colonoscopy was less than [address] [facility]. She was scheduled to have a repeat colonoscopy on 12/29/2020 however had to cancel that appointment. States her Crohn's disease has been well-controlled, she does have 6-16 loose bowels daily however reports no bleeding. She is denying any coffee- ground emesis or hematemesis. Hemoglobin has been stable at 12.7. At this time there is no plan for any endoscopic evaluation due to recent [place] and cardiac stenting. Probable etiology of lower GI bleed is related to Crohn's exacerbation, we will order CT of the abdomen and pelvis and start patient on Solu-Medrol 20 mg every 8 hours. Current Visit: Yes Status: Acute Code(s): K50.90 - CROHN'S DISEASE, UNSPECIFIED, WITHOUT COMPLICATIONS SNOMED Code(s): 63897129 (2) Lower GI bleed Current Visit: Yes Status: Acute Code(s): K92.2 - GASTROINTESTINAL HEMORRHAGE, UNSPECIFIED SNOMED Code(s): 95622584 (3) Nausea and vomiting Current Visit: Yes Status: Acute Code(s): R11.2 - NAUSEA WITH VOMITING, UNSPECIFIED SNOMED Code(s): 13012427 (4) STEMI (ST elevation myocardial infarction) Narrative/Plan: Patient underwent LAD stenting 2 and is being followed closely by cardiology Current Visit: Yes Status: Acute Code(s): I21.3 - ST ELEVATION (STEMI) MYOCARDIAL INFARCTION OF [facility] SITE SNOMED Code(s): 61867615 Plan: 1. Patient may have clear liquid diet 2. Repeat CBC at 1800 3. Daily CBC, transfuse for hemoglobin less than 7 4. Hold Eliquis and Brilinta 5. CT of the abdomen and pelvis ordered 6. Continue antiemetics as needed 7. Pain medication as needed 8. Sed rate and CRP ordered 9. Start Solu-Medrol 20 mg IV every 8 hours Thank you for this consultation, we will continue to follow. Dr. Shelly Forrester I agree with the dictator's note, documented as a scribe by Nicky Mathew.
--- NOTE | 2021-01-12 15:36 | US ---
EXAMINATION TYPE: US lower ext pseudo artery RT DATE OF EXAM: 01/12/2021 COMPARISON: NONE CLINICAL HISTORY: 55-year-old female Acute right lower abdomen pain. Post cardiac cath. EXAM PERFORMED: Grayscale and color Doppler duplex imaging performed of the groin, post cardiac candi ter to assess for pseudoaneurysm. Membership Advisor notes: Exam done portable. SIDE PERFORMED: Right FINDINGS: Color and Waveform Doppler performed to assess for the presence of pseudoaneurysm; Is there ultrasound evidence of a pseudoaneurysm: no Is there evidence of AV shunting: no Is there a fluid collection present: no IMPRESSION: No sonographic evidence for right groin pseudoaneurysm or hematoma.
[2021-01-12] MEDS: methylPREDNISolone SOD SUCCI 40 MG/ML 1 ML VIAL IV SCH ×2 (16:13→23:59)
[2021-01-12] MEDS: MORPHINE SULFATE 2 MG/ML SYRINGE IVP PRN ×2 (16:22→21:16)
[2021-01-12] MEDS ORDERED: hydrALAZINE HCL 20 MG/ML 1 ML VIAL IVP PRN (16:29)
[2021-01-12] MEDS ORDERED: PROCHLORPERAZINE INJ 10 MG/2 ML VIAL IVP PRN (16:32)
[2021-01-12] MEDS ORDERED: SODIUM CHLORIDE 0.9% 1,000 ML IV ONE (16:33)
[2021-01-12] MEDS: PANTOPRAZOLE 40 MG/10 ML VIAL IVP SCH (16:46)
[2021-01-12] MEDS: METOPROLOL TARTRATE 5 MG/5 ML VIAL IVP SCH (16:46)
--- NOTE | 2021-01-12 17:04 | P.CNPUL ---
History of Present Illness Consult date: 01/12/21 Chief complaint: Acute STEMI, GI bleed History of present illness: 55-year-old female patient, presented to the hospital because of chest pain and she was diagnosed having an acute STEMI, taken to cardiac catheterization underwent emergent catheterization she was found to have disease involving the LAD. The patient underwent a opacity and stenting 2 with successful angiographic results. Left ventricular diastolic pressure was estimated to be around 20. The patient was started on accommodation of aspirin, Brilinta and Eliquis. She was admitted to the intensive care unit for further monitoring. She is known to have previous history of SVT that was ablated and she also has a previous history of atrial fibrillation induced by Zofran related prolongation of the QT. The patient is also known to have history of Crohn's disease with asthma relatively well controlled being followed up by cardiology and she has been maintained on a combination of mesalamine and Levsin. Note that this afternoon, the patient developed an acute GI bleed where she had large amount of bright red blood per rectum with passing of clots. She did also extensive abdominal cramping and she is also experiencing constant nausea and emesis. She is on essentially dry heaving as the patient has not been able to take any other oral medication no she has been able to take the anti-emetics. She is hemodynamically stable. No abdominal pain. Altered mentation. No chest pain. No respiratory difficulties. No aspiration. Her troponin peaked at 140. White cell cause of 14.5. The rest of the electrolytes are all within normal limits. Review of Systems Constitutional: Denies chills, Denies fever Eyes: denies as per HPI, denies blurred vision, denies bulging eye, denies decreased vision, denies diplopia, denies discharge, denies dry eye, denies irritation, denies itching, denies pain, denies photophobia, denies loss of peripheral vision, denies loss of vision, denies tunnel vision/blind spots Ears: deny: decreased hearing, ear discharge, earache, tinnitus Ears, nose, mouth and throat: Denies headache, Denies sore throat Breasts: absent: as per HPI, change in shape, gynecomastia, masses, nipple discharge, pain, skin changes, swelling Cardiovascular: Reports chest pain Respiratory: Reports as per HPI Gastrointestinal: Reports BRBPR, Reports loss of appetite, Reports nausea, Reports vomiting Genitourinary: Reports as per HPI Menstruation: Reports as per HPI Musculoskeletal: absent: ankle pain, ankle stiffness, ankle swelling Integumentary: Reports as per HPI Neurological: Reports as per HPI Psychiatric: Reports as per HPI Endocrine: Reports as per HPI, Reports fatigue Hematologic/Lymphatic: Reports as per HPI Allergic/Immunologic: Reports as per HPI Past Medical History Past Medical History: Fibromyalgia, Hypertension Additional Past Medical History / Comment(s): Crohns, prolonged qt, anxiety, depression, arthritis, History of Any Multi-Drug Resistant Organisms: None Reported Past Surgical History: Appendectomy, Cardiac Ablation, Section, Heart Catheterization Additional Past Surgical History / Comment(s): heart cath 2009 approx. no in terventions done, carpal tunnel surgery Past Anesthesia/Blood Transfusion Reactions: No Reported Reaction Past Psychological History: Anxiety, Depression Smoking Status: Current some day smoker Past Alcohol Use History: None Reported Past Drug Use History: None Reported Medications and Allergies Home Medications Medication Instructions Recorded Confirmed Type Adalimumab [Humira(Cf) Pen] 40 mg SQ MO 01/11/21 01/11/21 History Alendronate Sodium 70 mg PO FR 01/11/21 01/11/21 History Atorvastatin [Lipitor] 80 mg PO DAILY 01/11/21 01/11/21 History Baclofen [Lioresal] 10 mg PO BID 01/11/21 01/11/21 History Diphenoxylate HCl/Atropine 1 tab PO QID PRN 01/11/21 01/11/21 History [Lomotil 2.5-0.025 mg Tablet] Ergocalciferol [Vitamin D2 (1250 1,250 mcg PO STILL 01/11/21 01/11/21 History Mcg = 38967 Iu)] Famotidine [Pepcid] 40 mg PO DAILY 01/11/21 01/11/21 History Hyoscyamine Sulfate [Levsin] 0.125 mg PO Q4H PRN 01/11/21 01/11/21 History Magnesium Oxide 400 mg PO DAILY 01/11/21 01/11/21 History Mesalamine [Mesalamine ER] 0.375 gm PO QID 01/11/21 01/11/21 History Prochlorperazine [Compazine] 10 mg PO Q8H PRN 01/11/21 01/11/21 History Promethazine Suppository 25 mg RECTAL BID PRN 01/11/21 01/11/21 History [Phenergan] Spironolactone [Aldactone] 25 mg PO DAILY 01/11/21 01/11/21 History Triamcinolone 0.5% Cream [Kenalog 1 applic TOPICAL QID PRN 01/11/21 01/11/21 History 0.5% Cream] Valsartan 320 mg PO DAILY 01/11/21 01/11/21 History buPROPion HCL [buPROPion HCL SR] 150 mg PO BID 01/11/21 01/12/21 History busPIRone HCL 15 mg PO BID 01/11/21 01/12/21 History Allergies Allergy/AdvReac Type Severity Reaction Status Date / Time ondansetron [From Zofran] Allergy Abdominal Verified 01/11/21 20:45 Pain Physical Exam Vitals: Vital Signs Temp Pulse Resp BP Pulse Ox 01/12/21 16:00 98.5 F 98 23 168/94 95 01/12/21 15:00 85 16 170/84 94 L 01/12/21 14:00 98 36 H 183/94 94 L 01/12/21 13:00 95 13 158/99 94 L 01/12/21 12:00 100 18 157/121 93 L 01/12/21 11:00 112 H 11 L 168/105 95 01/12/21 10:00 96 36 H 166/110 92 L 01/12/21 09:00 95 32 H 156/95 90 L 01/12/21 08:00 98 F 79 21 169/85 92 L 01/12/21 07:00 93 16 166/94 90 L 01/12/21 06:30 87 27 H 178/94 90 L 01/12/21 06:00 73 29 H 171/116 92 L 01/12/21 05:30 79 15 159/115 90 L 01/12/21 05:00 66 21 161/108 91 L 01/12/21 04:30 77 24 161/105 92 L 01/12/21 04:00 98.0 F 67 20 162/113 94 L 01/12/21 03:30 78 20 165/108 91 L 01/12/21 03:00 73 24 177/98 96 01/12/21 02:30 67 22 172/87 91 L 01/12/21 02:00 80 22 172/112 91 L 01/12/21 01:30 67 29 H 170/90 92 L 01/12/21 01:00 69 20 155/111 94 L 01/12/21 00:30 75 16 161/110 93 L 01/12/21 00:00 97.7 F 70 28 H 143/108 94 L 01/11/21 23:30 69 33 H 164/106 96 01/11/21 23:00 64 26 H 175/103 91 L 01/11/21 22:30 73 24 153/107 95 01/11/21 22:00 70 14 153/113 96 01/11/21 21:30 98 22 157/100 93 L 01/11/21 21:00 85 18 150/98 93 L 01/11/21 20:30 84 14 154/101 91 L 01/11/21 18:23 77 16 118/80 95 01/11/21 17:46 97.6 F 69 16 103/64 97 Intake and Output 01/12/21 01/12/21 01/12/21 06:59 14:59 22:59 Intake Total 675 0 0 Output Total 1001 405 0 Balance -326 -405 0 Intake: IV 375 0 0 Sodium Chloride 0.9% 1, 375 0 0 000 ml @ 75 mls/hr IV . [id number] [facility] Rx#:[id number] Oral 300 Output: Urine 1000 400 0 Emesis 1 5 Other: # Voids 1 # Bowel Movements 1 Weight 96 kg Gen. appearance the patient seems to be nauseated yet, and comfortable. Not in acute distress distress. Head exam was generally normal. There was no scleral icterus or corneal arcus. Mucous membranes were moist. Neck was supple and without jugular venous distension, thyromegaly, or carotid bruits. Carotids were easily palpable bilaterally. There was no adenopathy. Lungs sounds are diminished otherwise clear Cardiac exam revealed the PMI to be normally situated and sized. The rhythm was regular and no extrasystoles were noted during several minutes of auscultation. The first and second heart sounds were normal and physiologic splitting of the second heart sound was noted. There were no murmurs, rubs, clicks, or gallops. Abdominal exam revealed normal bowel sounds. The abdomen was soft, non-tender, and without masses, organomegaly, or appreciable enlargement of the abdominal aorta. Minimal tenderness upon palpation of the anterior abdominal wall. No rebound tensile guarding. This is a soft abdomen general. Examination of the extremities revealed easily palpable radial, femoral and pedal pulses. There was no cyanosis, clubbing or edema. Examination of the skin revealed no evidence of significant rashes, suspicious appearing nevi or other concerning lesions. Neurologically, the patient is awake and alert and the patient does not have any focal neurological deficit. Cranial nerves are essentially intact. Results - Laboratory Findings CBC and BMP: 01/12/21 04:05 01/12/21 04:05 PT/INR, D-dimer PT 10.7 sec (9.0-12.0) 01/11/21 17:55 INR 1.0 (<1.2) 01/11/21 17:55 Abnormal lab findings: Abnormal Labs 01/11/21 01/11/21 01/11/21 17:54 17:55 17:55 WBC 14.3 H Neutrophils # 9.6 H Sodium Chloride 110 H Carbon Dioxide 21 L Glucose 113 H POC Glucose (mg/dL) 109 H AST ALT Troponin I 01/11/21 01/11/21 01/12/21 19:56 22:00 01:08 WBC Neutrophils # Sodium Chloride Carbon Dioxide Glucose POC Glucose (mg/dL) 111 H AST ALT Troponin I 106.000 H* 140.000 H* 01/12/21 01/12/21 04:05 04:05 WBC 14.5 H Neutrophils # 11.4 H Sodium 136 L Chloride Carbon Dioxide Glucose 126 H POC Glucose (mg/dL) AST 337 H ALT 42 H Troponin I - Diagnostic Findings Chest x-ray: image reviewed Assessment and Plan Plan: 1 acute sigmoid elevation myocardial infarction, anterior wall, post cardiac catheterization and stenting of the LAD 2. Currently free of any chest pain and the patient is hemodynamic is stable. 2 acute lower GI bleeding currently under investigation. She is known to have underlying of some other bowel disease/Crohn's disease which has been essentially under adequate control prior to this acute cardiac event. She has been maintained on mesalamine and Levsin. Noted the patient has taken a combination of aspirin, Brilinta andEliquis post cardiac procedures 3 nausea and emesis, currently under investigation.. Of concern is a previous history of Zofran induced QT prolongation with cardiac arrest. 4 history of Crohn's disease 5 history of prolongation of QT interval secondary to Zofran with subsequent cardiac arrest 6 depression 7 fibromyalgia 8 hypertension Plan Give the patient bolus of 1 L of normal saline Give the patient hydralazine 10 mg IV every 4-6 hours for systolic blood pressure below 160 Give the patient IV Lopressor 5 mg every 6 hours as the patient is unable to take oral Coreg Give the patient Compazine and monitor QT prolongation. Stop for masses in which the patient is unable to take. Stop Reglan. Monitor hemoglobin and watch for any signs of GI bleed We'll coordinate with gastroenterology and cardiology his antiplatelet agents. For now the patient is off the aspirin and Brilinta and Eliquis CAT scan of the abdomen is to follow with oral contrast IV Solu Medrol regarding any Crohn's disease activity and the patient is currently on 20 mg IV every 8 hours Add IV Protonix Keep the patient ICU and will continue to follow.
[2021-01-12 17:47] LABS: HCT 40.4 % (34.0-46.0); HGB 13.7 gm/dL (11.4-16.0); MCH 32.8 pg (25.0-35.0); MCHC 33.9 g/dL (31.0-37.0); MCV 96.8 fL (80.0-100.0); Mean Platelet Volume 7.5; Platelet Count 343 k/uL (150-450); RBC 4.17 m/uL (3.80-5.40); RDW 14.9 % (11.5-15.5); WBC 16.1 k/uL (3.8-10.6)
[2021-01-12] MEDS ORDERED: APIXABAN 5 MG TAB PO SCH (21:00)
[2021-01-12] MEDS: ATORVASTATIN 80 MG TAB PO SCH (21:27)
[2021-01-12] MEDS: VALSARTAN 80 MG TAB PO SCH (21:28)
[2021-01-13] MEDS: METOPROLOL TARTRATE 5 MG/5 ML VIAL IVP SCH ×3 (00:01→11:57)
[2021-01-13] MEDS: MORPHINE SULFATE 2 MG/ML SYRINGE IVP PRN ×4 (00:56→20:37)
[2021-01-13] MEDS: SODIUM CHLORIDE 0.9% 1,000 ML IV SCH (00:57)
--- NOTE | 2021-01-13 01:45 | CT ---
EXAMINATION TYPE: CT abdomen pelvis w con DATE OF EXAM: 01/12/2021 COMPARISON: 01/21/2010 HISTORY: Abdominal pain, blood in stool. History of Crohn's. CT DLP: 1611.1 mGycm Automated exposure control for dose reduction was used. CONTRAST: Performed with IV Contrast, patient injected with 100ml mL of Isovue 300. Images obtained from the diaphragm to the floor the pelvis with IV contrast. There is some mild atelectasis at the lung bases. There is small left pleural effusion. Heart size is normal. There is no pericardial effusion. Liver spleen stomach pancreas gallbladder appear intact. Bile ducts are nondilated. There is no adren al mass. Kidneys show satisfactory contrast opacification. There is no hydronephrosis. There is previ ous right colon surgery. There is apparent right hemicolectomy. There is some straightening of the si gmoid colon with loss of the normal haustral markings. There is no wall thickening. Bladder distends smoothly. There is no inguinal hernia. There is no evidence of a pelvic mass. There is no free fluid in the pelvis. Uterus is anteverted. Lumbar vertebra have normal alignment. Posterio r elements are intact. There is no compression fracture. Bony pelvis is intact. Hip joints appear int act. I see no bone destruction. There is no mesenteric edema. There is no ascites or free air. There is no bowel obstruction. There i s 1.5 cm cortical cyst lateral right kidney. IMPRESSION: Chronic pleural thickening at the left lung base with some mild atelectasis and pleural fluid that is slightly increased compared to old exam. Previous right colon surgery. No sign of acute abdomen and pelvis. Chronic changes in the sigmoid colon consistent with sequela of long-standing colitis. No evidence of large bowel mass. No evidence of a fistula.
[2021-01-13 05:09] LABS: Basophils % (A) 0 %; Eosinophils % (A) 0 %; HGB 12.6 gm/dL (11.4-16.0); Lymphocytes # (A) 2.2 k/uL (1.0-4.8); Lymphocytes % (A) 16 %; MCH 31.9 pg (25.0-35.0); MCHC 33.1 g/dL (31.0-37.0); MCV 96.5 fL (80.0-100.0); Mean Platelet Volume 7.4; Monocytes # (A) 0.5 k/uL (0-1.0); Monocytes % (A) 3 %; Neutrophils # (A) 10.6 k/uL (1.3-7.7); Neutrophils % (A) 79 %; Platelet Count 340 k/uL (150-450); RBC 3.93 m/uL (3.80-5.40); RDW 14.6 % (11.5-15.5); WBC 13.3 k/uL (3.8-10.6)
[2021-01-13 05:36] LABS: African American GFR (CKD) >90 (>60 ml/min/1.73 sqM); Anion Gap 7 mmol/L; Blood Urea Nitrogen 17 mg/dL (7-17); C Reactive Protein 2.2 mg/dL (<1.0); Calcium 8.7 mg/dL (8.4-10.2); Carbon Dioxide 23 mmol/L (22-30); Chloride 107 mmol/L (98-107); Glucose 126 mg/dL (74-99); Non-African American GFR(CKD) 80 (>60 ml/min/1.73 sqM); Potassium 4.7 mmol/L (3.5-5.1); Sodium 137 mmol/L (137-145)
[2021-01-13 07:32] LABS: Erythrocyte Sedimentation Rate 54 mm/hr (0-20)
[2021-01-13] MEDS: BACLOFEN 10 MG TAB PO SCH ×2 (09:37→20:40)
[2021-01-13] MEDS: PANTOPRAZOLE 40 MG/10 ML VIAL IVP SCH (09:37)
[2021-01-13] MEDS: methylPREDNISolone SOD SUCCI 40 MG/ML 1 ML VIAL IV SCH ×2 (09:37→19:08)
[2021-01-13] MEDS: SPIRONOLACTONE 25 MG TAB PO SCH (09:37)
[2021-01-13] MEDS: BALSALAZIDE DISODIUM 750 MG CAPSULE PO SCH ×2 (09:38→19:08)
[2021-01-13] MEDS: VALSARTAN 80 MG TAB PO SCH ×2 (09:39→20:40)
--- NOTE | 2021-01-13 11:11 | P.PN ---
Subjective Patient is stable this morning. Denies any chest discomfort no undue shortness of breath lying comfortably in bed Pulse rate in the 70s Respirations normal Blood pressure 119/83 mmHg Normal heart sounds normal S1 normal S2 No murmurs no gallops no rub line abdomen is soft Labs reviewed white count elevated 30.3 thousand, hemoglobin 4.6 Sodium 137 potassium 4.7 BUN 17 creatinine 0.8 Troponin went up to 140 Impression and plan Recurrent dizzy spells for the last year and intermittently discomfort in the left arm and chest and upper back Episode of loss of consciousness in June, ventricular rate initial hospital then was transferred to [facility] Worsening dizzy spells with debridement left arm discomfort and upper back d lizbeth Presented with an acute anterior wall OH Status post coronary stenting 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 This appears to be trabeculation in the LV apex and therefore I will stop ELIQUIS She must continue dual antiplatelet therapy Interview Brilinta 90 mg twice a day Continue aspirin 81 mg daily Continue carvedilol 6.25 mg twice daily Stop amlodipine If her blood pressure is within normal range then continue losartan Add a detailed discussion the patient She had torsade secondary to Zofran administration greater than 15 years back and had drug-induced QT prolongation She may use Reglan for nausea Objective - Vital Signs Vital signs: Vital Signs Temp 98.2 F 01/13/21 04:00 Pulse 96 01/13/21 07:00 Resp 21 01/13/21 07:00 BP 117/81 01/13/21 07:00 Pulse Ox 92 L 01/13/21 07:00 Intake & Output 01/12/21 01/13/21 01/13/21 18:59 06:59 18:59 Intake Total 1075 900 75 Output Total 405 140 Balance 670 760 75 Weight 93.2 kg Intake: IV 1075 900 75 Sodium Chloride 0.9% 1, 1075 900 75 000 ml @ 75 mls/hr IV . [id number] Rx#:[id number] Output: Urine 400 Emesis 5 140 Other: Voiding Method Toilet # Voids 1 1 1 # Bowel Movements 1 - Labs CBC & Chem 7: 01/13/21 04:41 01/13/21 04:41 Labs: Abnormal Lab Results - Last 24 Hours (Table) 01/12/21 01/13/21 01/13/21 Range/Units 17:38 04:41 04:41 WBC 16.1 H 13.3 H (3.8-10.6) k/uL Neutrophils # 10.6 H (1.3-7.7) k/uL ESR 54 H (0-20) mm/hr Glucose 126 H (74-99) mg/dL C-Reactive Protein 2.2 H (<1.0) mg/dL
--- NOTE | 2021-01-13 11:12 | P.PN ---
Subjective Progress Note Date: 01/13/21 Principal diagnosis: Crohns disease, GI bleed This is a 55-year-old white female with a past medical history of SVT with previous ablation and V. fib cardiac arrest after receiving Zofran for prolonged QT, fibromyalgia, anxiety, Crohn's disease, and current smoker who presented to the emergency department yesterday evening with complaints of chest pain that was radiating down her left arm and into her back and along her jaw. A STEMI was called on the patient and she went for cardiac catheterization and subsequently underwent LAD stenting 2 yesterday evening. She has a history of Crohn's disease diagnosed approximately 30 years ago and at that time underwent a bowel resection. She has been seeing Day Lala for treatment of her Crohn's disease. She takes Humira weekly, mesalamine, and Levsin for her Crohn's disease. She states her Crohn's has been under control. She states she does have 6-16 bowel movements a day, which are loose, nonbloody. Today is her first episode of having bloody bowel movement. She denies any coffee-ground emesis or hematemesis. States her last colonoscopy was less than 5 years ago at [facility], she was scheduled to have a colonoscopy on December 29 however her mother was in the hospital and she had to cancel. She was given a dose of Brilinta end-stage evening. Yesterday morning the patient started complaining of abdom inal pain/cramping, nausea and vomiting. Later in the afternoon she had a large loose bowel movement that was bloody with blood clots. She had a repeat hemoglobin yesterday at 1800 that was 13.7. Today's hemoglobin is 12.6. Sed rate 54, CRP 2.2. Patient states abdominal pain and cramping have improved, she's had mild nausea but no vomiting. She's had no further bowel movements or rectal bleeding. She was started on Solu-Medrol 20 mg IV every 8 hours and Brilinta has been on hold. CT of the abdomen and pelvis showed chronic pleural thickening at the left lung base with some mild atelectasis and pleural fluid that is slightly increased compared to old exam. Previous right colon surgery. No sign of acute abdomen and pelvis. Chronic changes in the sigmoid colon consistent with sequela of long-standing colitis, no evidence of large bowel mass. No evidence of a fistula. Objective - Vital Signs Vital signs: Vital Signs Temp 98.2 F 01/13/21 04:00 Pulse 96 01/13/21 07:00 Resp 21 01/13/21 07:00 BP 117/81 01/13/21 07:00 Pulse Ox 92 L 01/13/21 07:00 Intake & Output 01/12/21 01/13/21 01/13/21 18:59 06:59 18:59 Intake Total 1075 900 75 Output Total 405 140 Balance 670 760 75 Weight 93.2 kg Intake: IV 1075 900 75 Sodium Chloride 0.9% 1, 5 900 75 000 ml @ 75 mls/hr IV . [id number] [facility] Rx#:[id number] Output: Urine 400 Emesis 5 140 Other: Voiding Method Toilet # Voids 1 1 1 # Bowel Movements 1 - Exam General appearance: The patient is alert, oriented, appears in no acute distress. HET: Head is normocephalic and atraumatic. Conjunctiva pink. Sclera anicteric. Neck: Supple without lymphadenopathy. Abdomen: Soft, left lower quadrant tenderness, nondistended with bowel sounds. No guarding or rigidity. Extremities: Normal skin color and turgor. No pedal edema Skin: No rashes, no jaundice Neurological: No focal deficits. Alert and oriented 3. - Labs CBC & Chem 7: 01/13/21 04:41 01/13/21 04:41 Labs: Abnormal Lab Results - Last 24 Hours (Table) 01/12/21 01/13/21 01/13/21 Range/Units 17:38 04:41 04:41 WBC 16.1 H 13.3 H (3.8-10.6) k/uL Neutrophils # 10.6 H (1.3-7.7) k/uL ESR 54 H (0-20) mm/hr Glucose 126 H (74-99) mg/dL C-Reactive Protein 2.2 H (<1.0) mg/dL Assessment and Plan (1) Crohn's disease Narrative/Plan: 55-year-old who presented to the emergency department yesterday with complaints of chest pain radiating to her back and left arm and along jawline with a past medical history of Crohn's disease, SVT with previous ablation, V. fib arrest after receiving Zofran, anxiety, and fibromyalgia. STEMI was called on the patient, she underwent cardiac catheterization revealing an acutely occluded left anterior descending artery with acute anterior wall myocardial infarction. She then underwent LAD stenting 2. She was started on Brilinta and Eliquis. She did receive 1 dose of Brilinta yesterday evening. This morning she started with nausea and vomiting along with abdominal pain. She was unable to keep down her Brilinta on Eliquis. This afternoon she started having loose bowels with bright red blood and multiple clots. The patient has been maintained on Humira, mesalamine, and Levsin and followed with [facility] Lala from gastroenterology. Her last colonoscopy was less than 5 years ago at [facility]. She was scheduled to have a repeat colonoscopy on 12/29/2020 however had to cancel that appointment. States her Crohn's disease has been well-controlled, she does have 6-16 loose bowels daily however reports no bleeding. She is denying any coffee- ground emesis or hematemesis. Hemoglobin has been stable at 12.7. At this time there is no plan for any endoscopic evaluation due to recent OR and cardiac stenting. Probable etiology of lower GI bleed is related to Crohn's exacerbation, we will order CT of the abdomen and pelvis and start patient on Solu-Medrol 20 mg every 8 hours. Current Visit: Yes Status: Acute Code(s): K50.90 - CROHN'S DISEASE, UNSPECIFIED, WITHOUT COMPLICATIONS SNOMED Code(s): 16540116 (2) Lower GI bleed Current Visit: Yes Status: Acute Code(s): K92.2 - GASTROINTESTINAL HEMORRHAGE, UNSPECIFIED SNOMED Code(s): 77488911 (3) Nausea and vomiting Current Visit: Yes Status: Acute Code(s): R11.2 - NAUSEA WITH VOMITING, UNSPECIFIED SNOMED Code(s): 87357397 (4) STEMI (ST elevation myocardial infarction) Narrative/Plan: Patient underwent LAD stenting 2 and is being followed closely by cardiology Current Visit: Yes Status: Acute Code(s): I21.3 - ST ELEVATION (STEMI) MYOCARDIAL INFARCTION OF [facility] SITE SNOMED Code(s): 75790399 Plan: 1. May advance to heart healthy diet 2. Continue Solu-Medrol 20 mg IV every 8 hours 3. Hold anticoagulation/antiplatelet therapy for another [address] of the abdomen and pelvis ordered and reviewed 5. Continue antiemetics as needed Thank you for allowing us to participate in the care of the patient, the GI service will sign off, gastroenterology will not be available at the hospital this weekend and if further evaluation by gastroenterology is required the patient will need transfer as per the primary team's discretion. Dr. Shelly Forrester I agree with the dictator's note, documented as a scribe by Nicky Mathew.
[2021-01-13] MEDS: carvediloL 3.125 MG TAB PO SCH ×2 (11:50→19:09)
[2021-01-13] MEDS: TICAGRELOR 90 MG TAB PO SCH ×2 (11:50→20:38)
[2021-01-13] MEDS: ASPIRIN 81 MG PO SCH (11:50)
--- NOTE | 2021-01-13 14:30 | P.GSCN ---
History of Present Illness Consult date: 01/13/21 Reason for Consult: Abdominal pain History of present illness: 55-year-old female who came to the hospital with chest pain and was found to hav e evidence of coronary occlusion. Underwent urgent cardiac catheterization with stent placement. Following the stent placement patient had episodes of rectal bleeding nausea vomiting and abdominal pain. Patient has personal history of Crohn's disease. Underwent previous right colectomy. Was seen by GI yesterday. He was started on IV steroids. Anticoagulation was held. No further bleeding since yesterday. She had emesis that was bilious in nature yesterday. Her pain today is much improved. It is diffuse in location. White blood cell count is 13.3 which is better. Patient had a CAT scan performed showing chronic inflammatory changes involving the rectosigmoid. Review of Systems The patient denies any acute changes in vision or hearing, no dysphagia or odynophagia, no dysuria or hematuria, no headache, no runny nose, no melena, no unexplained weight loss Past Medical History Past Medical History: Fibromyalgia, Hypertension Additional Past Medical History / Comment(s): Crohns, prolonged qt, anxiety, depression, arthritis, History of Any Multi-Drug Resistant Organisms: None Reported Past Surgical History: Appendectomy, Cardiac Ablation, Section, Heart Catheterization Additional Past Surgical History / Comment(s): heart cath 2009. no interventions done, carpal tunnel surgery Past Anesthesia/Blood Transfusion Reactions: No Reported Reaction Past Psychological History: Anxiety, Depression Smoking Status: Current some day smoker Past Alcohol Use History: None Reported Past Drug Use History: None Reported Medications and Allergies Home Medications Medication Instructions Recorded Confirmed Type Adalimumab [Humira(Cf) Pen] 40 mg SQ MO 01/11/21 01/11/21 History Alendronate Sodium 70 mg PO FR 01/11/21 01/11/21 History Atorvastatin [Lipitor] 80 mg PO DAILY 01/11/21 01/11/21 History Baclofen [Lioresal] 10 mg PO BID 01/11/21 01/11/21 History Diphenoxylate HCl/Atropine 1 tab PO QID PRN 01/11/21 01/11/21 History [Lomotil 2.5-0.025 mg Tablet] Ergocalciferol [Vitamin D2 (1250 1,250 mcg PO STILL 01/11/21 01/11/21 History Mcg = 91971 Iu)] Famotidine [Pepcid] 40 mg PO DAILY 01/11/21 01/11/21 History Hyoscyamine Sulfate [Levsin] 0.125 mg PO Q4H PRN 01/11/21 01/11/21 History Magnesium Oxide 400 mg PO DAILY 01/11/21 01/11/21 History Mesalamine [Mesalamine ER] 0.375 gm PO QID 01/11/21 01/11/21 History Prochlorperazine [Compazine] 10 mg PO Q8H PRN 01/11/21 01/11/21 History Promethazine Suppository 25 mg RECTAL BID PRN 01/11/21 01/11/21 History [Phenergan] Spironolactone [Aldactone] 25 mg PO DAILY 01/11/21 01/11/21 History Triamcinolone 0.5% Cream [Kenalog 1 applic TOPICAL QID PRN 01/11/21 01/11/21 History 0.5% Cream] Valsartan 320 mg PO DAILY 01/11/21 01/11/21 History buPROPion HCL [buPROPion HCL SR] 150 mg PO BID 01/11/21 01/12/21 History busPIRone HCL 15 mg PO BID 01/11/21 01/12/21 History Allergies Allergy/AdvReac Type Severity Reaction Status Date / Time ondansetron [From Zofran] Allergy Abdominal Verified 01/11/21 20:45 Pain Surgical - Exam Vital Signs Temp Pulse Resp BP Pulse Ox 97.6 F 69 16 103/64 97 01/11/21 17:46 01/11/21 17:46 01/11/21 17:46 01/11/21 17:46 01/11/21 17:46 Physical exam: General: Well-developed, well-nourished HEENT: Normocephalic, sclerae nonicteric Abdomen: Mild diffuse tenderness, nondistended Extremities: Mild bilateral lower extremity edema Neuro: Alert and oriented Results - Labs 01/13/21 04:41 01/13/21 04:41 Abnormal Lab Results - Last 24 Hours (Table) 01/12/21 01/13/21 01/13/21 Range/Units 17:38 04:41 04:41 WBC 16.1 H 13.3 H (3.8-10.6) k/uL Neutrophils # 10.6 H (1.3-7.7) k/uL ESR 54 H (0-20) mm/hr Glucose 126 H (74-99) mg/dL C-Reactive Protein 2.2 H (<1.0) mg/dL Diabetes panel 01/13/21 Range/Units 04:41 Sodium 137 (137-145) mmol/L Potassium 4.7 (3.5-5.1) mmol/L Chloride 107 (98-107) mmol/L Carbon Dioxide 23 (22-30) mmol/L BUN 17 (7-17) mg/dL Creatinine 0.83 (0.52-1.04) mg/dL Glucose 126 H (74-99) mg/dL Calcium 8.7 (8.4-10.2) mg/dL Calcium panel 01/13/21 Range/Units 04:41 Calcium 8.7 (8.4-10.2) mg/dL Pituitary panel 01/13/21 Range/Units 04:41 Sodium 137 (137-145) mmol/L Potassium 4.7 (3.5-5.1) mmol/L Chloride 107 (98-107) mmol/L Carbon Dioxide 23 (22-30) mmol/L BUN 17 (7-17) mg/dL Creatinine 0.83 (0.52-1.04) mg/dL Glucose 126 H (74-99) mg/dL Calcium 8.7 (8.4-10.2) mg/dL Adrenal panel 01/13/21 Range/Units 04:41 Sodium 137 (137-145) mmol/L Potassium 4.7 (3.5-5.1) mmol/L Chloride 107 (98-107) mmol/L Carbon Dioxide 23 (22-30) mmol/L BUN 17 (7-17) mg/dL Creatinine 0.83 (0.52-1.04) mg/dL Glucose 126 H (74-99) mg/dL Calcium 8.7 (8.4-10.2) mg/dL Assessment and Plan (1) Abdominal pain Narrative/Plan: 55-year-old female with abdominal pain and rectal bleeding. Patient with personal history of Crohn's disease. CAT scan reviewed. Patient has evidence of colitis. Agree with plans for IV steroids. Resume anticoagulation per GI in near future. Continue advancing diet as tolerated. Will follow. Current Visit: Yes Status: Acute Code(s): R10.9 - UNSPECIFIED ABDOMINAL PAIN SNOMED Code(s): 95907630
--- NOTE | 2021-01-13 17:40 | P.PN ---
Subjective Progress Note Date: 01/13/21 Principal diagnosis: GI bleed, acute ST elevated [place] 55-year-old female patient, presented to the hospital because of chest pain and she was diagnosed having an acute STEMI, taken to cardiac catheterization underwent emergent catheterization she was found to have disease involving the LAD. The patient underwent a opacity and stenting 2 with successful angiographic results. Left ventricular diastolic pressure was estimated to be around 20. The patient was started on accommodation of aspirin, Brilinta and Eliquis. She was admitted to the intensive care unit for further monitoring. She is known to have previous history of SVT that was ablated and she also has a previous history of atrial fibrillation induced by Zofran related prolongation of the QT. The patient is also known to have history of Crohn's disease with asthma relatively well controlled being followed up by cardiology and she has been maintained on a combination of mesalamine and Levsin. Note that this afternoon, the patient developed an acute GI bleed where she had large amount of bright red blood per rectum with passing of clots. She did also extensive abdominal cramping and she is also experiencing constant nausea and emesis. She is on essentially dry heaving as the patient has not been able to take any other oral medication no she has been able to take the anti-emetics. She is hemodyn amically stable. No abdominal pain. Altered mentation. No chest pain. No respiratory difficulties. No aspiration. Her troponin peaked at 140. White cell cause of 14.5. The rest of the electrolytes are all within normal limits. on today's evaluation on 01/13/2021 patient seen in follow-up in the intensive care unit. She is status post PCI and stenting of the LAD 2 on 01/11/2021. She was started on aspirin, Brilinta and and Eliquis following stent placement. And has developed GI bleeding yesterday she had an episode of large bowel movement with gross blood and multiple blood clots. Patient does have a history of Crohn's disease and patient takes Humira weekly, Ms. olamine and Levsin. Her aspirin, Brilinta and Eliquis have been on hold. She has not required any blood transfusions, today's hemoglobin is 12.6, in addition she had multiple episodes of vomiting yesterday, which was non-bloody. Has a history of prolonged QT syndrome, previous history of SVT with previous ablation, intolerant to Zofran. Yesterday we discontinued her Reglan, she was given IM Compazine, overnight her nausea and vomiting have significantly improved, she has not had recurrence of bloody stools since the one episode that she reported yesterday. Hemodynamically she has remained stable, she is breathing comfortably, she is on room air with a pulse ox of 97%, she is in sinus mechanism, with a rate of 73. Blood pressure is 128/88. No complaints of chest pain, no shortness of breath, lung sounds reveal some mild bibasilar crackles, no wheezing. No coughing. 0.9 normal saline at a rate of 75 ML per hour. She has been nothing by mouth for last 24 hours, she was seen in consultation by GI service. No endoscopy is recommended at this time, continue conservative treatment, patient was placed on IV steroids. TMs abdomen and pelvis showed no evidence acute abdomen or pelvis. 4 chronic changes in the sigmoid colon consistent with sequela of long-standing colitis. No bowel masses, and no evidence of a fistula. On today's exam patient is feeling much better, she's had several episodes of small volume of vomiting, which was nonbloody, overall much less nauseous, abdomen is still slightly tender across the lower abdomen, but soft. Is tolerating sips of clear liquids. Objective - Vital Signs Vital signs: Vital Signs Temp 98.2 F 01/13/21 04:00 Pulse 96 01/13/21 07:00 Resp 21 01/13/21 07:00 BP 117/81 01/13/21 07:00 Pulse Ox 92 L 01/13/21 07:00 Intake & Output 01/12/21 01/13/21 01/13/21 18:59 06:59 18:59 Intake Total 1075 900 75 Output Total 405 140 Balance 670 760 75 Weight 93.2 kg Intake: IV 1075 900 75 Sodium Chloride 0.9% 1, 1075 900 75 000 ml @ 75 mls/hr IV . [id number] [facility] Rx#:[id number] Output: Urine 400 Emesis 5 140 Other: Voiding Method Toilet # Voids 1 1 1 # Bowel Movements 1 - Exam GENERAL EXAM: Alert, pleasant, 56-year-old white female, resting comfortably in bed, in intensive care unit, breathing currently, on room air, pulse ox is 96% comfortable in no apparent distress. HEAD: Normocephalic/atraumatic. EYES: Normal reaction of pupils, equal size. Conjunctiva pink, sclera white. NOSE: Clear with pink turbinates. THROAT: No erythema or exudates. NECK: No masses, no JVD, no thyroid enlargement, no adenopathy. CHEST: No chest wall deformity. Symmetrical expansion. LUNGS: Equal air entry with basilar crackles CVS: Regular rate and rhythm, normal S1 and S2, no gallops, no murmurs, no rubs ABDOMEN: Soft, obese, some tenderness reported across the lower abdomen, No hepatosplenomegaly, normal bowel sounds, no guarding or rigidity. EXTREMITIES: No clubbing, no edema, no cyanosis, 2+ pulses and upper and lower extremities. MUSCULOSKELETAL: Muscle strength and tone normal. SPINE: No scoliosis or deformity SKIN: No rashes CENTRAL NERVOUS SYSTEM: Alert and oriented -3. No focal deficits, tone is normal in all 4 extremities. PSYCHIATRIC: Alert and oriented -3. Appropriate affect. Intact judgment and insight. - Labs CBC & Chem 7: 01/13/21 04:41 01/13/21 04:41 Labs: Abnormal Lab Results - Last 24 Hours (Table) 01/12/21 01/13/21 01/13/21 Range/Units 17:38 04:41 04:41 WBC 16.1 H 13.3 H (3.8-10.6) k/uL Neutrophils # 10.6 H (1.3-7.7) k/uL ESR 54 H (0-20) mm/hr Glucose 126 H (74-99) mg/dL C-Reactive Protein 2.2 H (<1.0) mg/dL Assessment and Plan Plan: Assessment: 1 acute sigmoid elevation myocardial infarction, anterior wall, post cardiac catheterization and stenting of the LAD 2. Currently free of any chest pain and the patient is hemodynamic is stable. 2 acute lower GI bleeding currently under investigation. She is known to have underlying of some other bowel disease/Crohn's disease which has been essentially under adequate control prior to this acute cardiac event. She has been maintained on mesalamine and Levsin. Noted the patient has taken a combination of aspirin, Brilinta andEliquis post cardiac procedures. Today's hemoglobin on 01/13/2021 is stable at 12.6, patient has not required any blood transfusions. Did episodes of bloody bowel movements overnight 3 nausea and emesis, currently under investigation.. Of concern is a previous history of Zofran induced QT prolongation with cardiac arrest. improved. The abdomen and pelvis computed tomography scan showed no acute intra-abdominal process 4 history of Crohn's disease 5 history of prolongation of QT interval secondary to Zofran with subsequent ca rdiac arrest 6 depression 7 fibromyalgia 8 hypertension 9 ischemic cardiomyopathy EF of 30-35% and possible apical thrombus per the echo report Plan: Hemodynamically patient has remained stable Has not required any blood transfusions Has not had a recurrence of bloody bowel movements overnight Nausea and vomiting have improved Continue IM Compazine for nausea as needed No complaints of chest pain, vital signs are stable Echocardiogram has been reviewed GI service consultation was obtained, patient is on IV steroids, abdominal pain has improved, CT of the abdomen and pelvis showed no acute intra-abdominal process No plans for endoscopic evaluation At this time From GI perspective Brilinta can be restarted today along with clear liquid diet Continue monitoring for recurrence of bleeding Close monitoring in the intensive care unit I performed a history & physical examination of the patient and discussed their management with my nurse practitioner, Margi Fuentes. I reviewed the nurse practitioner's note and agree with the documented findings and plan of care. Lung sounds are positive for diffuse wheezes throughout the lung [place]. The findings and the impression was discussed with the patient. I attest to the documentation by the nurse practitioner. Time with Patient: Less than 30
[2021-01-13] MEDS: ATORVASTATIN 80 MG TAB PO SCH (20:38)
--- NOTE | 2021-01-13 21:06 | P.PN ---
Progress Note - Text Progress Note Date: 01/13/21 Chief Complaint: Blood per rectum History of presenting complaint: This is a pleasant 55-year-old patient of Dr. Deleon. She does follow with Dr. Angelo shepard from cardiology for arrhythmia's. She's had a prior cardiac ablation. Chronic stable medical conditions include fibromyalgia, hypertension, Crohn's, long QT, anxiety depression, arthritis. Patient been smoking off and on. Patient around 4:00 this afternoon became dizzy and nauseated developed back pain coming from the chest neck and left arm. Patient started perspiring. Decided to come into the hospital. She was taken to the medical laboratory technical officer she did get 2 stents/PTCa proximally occluded LAD and that's when her pain subsided. Currently nicely. Currently no chest pain. She was initially diagnosed to have acute ST elevation [place]. January 12: Overnight patient's blood pressure been running high. Having nausea vomiting. Different antiemetics were tried. I prescribed this morning scopolamine patch. Told to avoid water. Patient has a right groin FemoStop. Having right lower abdomen abdominal pain. January 13: Yesterday late afternoon patient developed blood in the stool. With abdominal pain. Consultation to GI and surgery was done. [place] to be flareup of colitis. IV Solu-Medrol started. Today decreased abdominal pain was still present. Normal bleeding per rectum. On a liquid diet. Computed tomography scan of the abdomen had shown colitis. [Hospital has no GI coverage over the weekend] Review of systems: Was done for constitutional, cardiovascular, GI, pulmonary. relevant finding as above Active Medications Aspirin (Aspirin 81 Mg) 81 mg PO DAILY [facility] Last Admin: 01/13/21 11:50 Dose: 81 mg Documented by: Atorvastatin Calcium (Atorvastatin 80 Mg Tab) 80 mg PO HS [facility] Last Admin: 01/13/21 20:38 Dose: 80 mg Documented by: Baclofen (Baclofen 10 Mg Tab) 10 mg PO BID [facility] Last Admin: 01/13/21 20:40 Dose: 10 mg Documented by: Balsalazide (Balsalazide Disodium 750 Mg Capsule) 2,250 mg PO TID [facility] Last Admin: 01/13/21 19:08 Dose: 2,250 mg Documented by: Carvedilol (Carvedilol 3.125 Mg Tab) 3.125 mg PO BID-W/MEALS [facility] Last Admin: 01/13/21 19:09 Dose: 3.125 mg Documented by: Hydralazine HCl (Hydralazine Hcl 20 Mg/Ml 1 Ml Vial) 10 mg IVP Q6HR PRN PRN Reason: Blood Pressure - High Last Admin: 01/12/21 21:19 Dose: 10 mg Documented by: Hyoscyamine (Hyoscyamine Sulfate 0.125 Mg Tab) 0.125 mg PO Q4H PRN PRN Reason: ibs Methylprednisolone Sodium Succinate (Methylprednisolone Sod Succi 40 Mg/Ml 1 Ml Vial) 20 mg IV Q8HR [facility] Last Admin: 01/13/21 19:08 Dose: 20 mg Documented by: Morphine Sulfate (Morphine Sulfate 2 Mg/Ml Syringe) 1 mg IVP Q4HR PRN PRN Reason: Pain/Discomfort Last Admin: 01/13/21 20:37 Dose: 1 mg Documented by: Non-Formulary Medication (Adalimumab [Humira(Cf) Pen]) 40 mg SQ MO [facility] Pantoprazole Sodium (Pantoprazole 40 Mg/10 Ml Vial) 40 mg IVP DAILY [facility] Last Admin: 01/13/21 09:37 Dose: 40 mg Documented by: Prochlorperazine Edisylate (Prochlorperazine Inj 10 Mg/2 Ml Vial) 10 mg IVP Q6H R PRN PRN Reason: Nausea And Vomiting Last Admin: 01/12/21 21:18 Dose: 10 mg Documented by: Scopolamine (Scopolamine 1.5mg/72hr Patch) 1 patch TRANSDERM Q72H [facility] Last Admin: 01/12/21 13:00 Dose: 1 patch Documented by: Spironolactone (Spironolactone 25 Mg Tab) 25 mg PO DAILY [facility] Last Admin: 01/13/21 09:37 Dose: 25 mg Documented by: Ticagrelor (Ticagrelor 90 Mg Tab) 90 mg PO BID [facility] Last Admin: 01/13/21 20:38 Dose: 90 mg Documented by: Valsartan (Valsartan 80 Mg Tab) 80 mg PO BID [facility] Last Admin: 01/13/21 20:40 Dose: 80 mg Documented by: Past medical history to include: Fibromyalgia, hypertension, Crohn's disease, along daily, anxiety depression, osteomyelitis arthritis, Social history: This with 2 daughters. On disability. Smoking off and on. No alcohol. Family history: Reviewed, noncontributory to presentation Physical examination: VITAL SIGNS: 97.8, 94, 18, 06/18/1976, 96% room air GENERAL: Laying in bed, awake, EYES: Pupils equal. Conjunctiva normal. HEENT: External appearance of nose and ears normal, oral cavity grossly normal. NECK: JVD not raised; masses not palpable. HEART: First and second heart sounds are normal; no edema. LUNGS: Respiratory rate normal; decreased breath sound. ABDOMEN: Soft, mild tenderness, no guarding rigidity, liver spleen not palpable, no masses palpable. Right groin FemoStop PSYCH: Alert and oriented x3; mood and affect normal. INVESTIGATIONS, reviewed in the clinical context: January 13: WBC 13.3 hemoglobin 12.6 potassium 4.7 creatinine 0.83 Computed tomography scan of the abdomen(evidence of sigmoid colitis. Right hemicolectomy Right groin ultrasound: Negative for any aneurysm/clot January 12: WBC 14.5 hemoglobin 12.7 potassium 4.2 creatinine 0.78 WBC 14.3 hemoglobin 12.4 platelets 360 potassium 3.8 creatinine 1.03 glucose 113 Troponin I less than 0.012 EKG tracing personally reviewed by me-ST elevation in lead V2 V3, ST depression in inferior leads Chest x-ray film personally reviewed by me-portable/no obvious infiltrate Assessment and plan: -Acute ST elevation myocardial infarction. Proximal LAD PTCA/ 2 stents. Aspirin, Lipitor, Brilinta -Acute lower GI bleed from possible flareup Crohn's colitis, patient being on antiplatelet agents Follow H&H -Obesity BMI 39.9 Dietitian. Weight loss measures -Essential hypertension Cozaar 25 mg daily. Coreg 6.25 twice a day. Valsartan 80 mg twice a day -Crohn's disease, with acute exacerbation: Slow to respond Mesalamine 0.375 g by mouth 4 times a day, IV Solu-Medrol -Muscle spasm Baclofen 10 mg twice a day -Hyperlipidemia Lipitor 80 mg daily -Anxiety depression, controlled -Persistent nausea with some vomiting Scopolamine patch. IV Compazine when necessary Patient continued to clear liquids. IV Solu-Medrol. Other medications to continue. On aspirin and Brilinta.
[2021-01-14] MEDS: MORPHINE SULFATE 2 MG/ML SYRINGE IVP PRN ×2 (03:52→12:51)
[2021-01-14] MEDS: methylPREDNISolone SOD SUCCI 40 MG/ML 1 ML VIAL IV SCH (03:54)
[2021-01-14] MEDS: BALSALAZIDE DISODIUM 750 MG CAPSULE PO SCH ×4 (07:14→21:46)
[2021-01-14 07:39] LABS: Basophils % (A) 0 %; Eosinophils % (A) 0 %; HGB 12.1 gm/dL (11.4-16.0); Lymphocytes # (A) 1.8 k/uL (1.0-4.8); Lymphocytes % (A) 14 %; MCH 31.6 pg (25.0-35.0); MCHC 32.7 g/dL (31.0-37.0); MCV 96.6 fL (80.0-100.0); Mean Platelet Volume 7.7; Monocytes # (A) 0.6 k/uL (0-1.0); Monocytes % (A) 5 %; Neutrophils # (A) 9.7 k/uL (1.3-7.7); Neutrophils % (A) 80 %; Platelet Count 341 k/uL (150-450); RBC 3.83 m/uL (3.80-5.40); RDW 14.5 % (11.5-15.5); WBC 12.2 k/uL (3.8-10.6)
[2021-01-14 08:04] LABS: African American GFR (CKD) >90 (>60 ml/min/1.73 sqM); Anion Gap 7 mmol/L; Blood Urea Nitrogen 24 mg/dL (7-17); Calcium 8.9 mg/dL (8.4-10.2); Carbon Dioxide 23 mmol/L (22-30); Chloride 110 mmol/L (98-107); Glucose 123 mg/dL (74-99); Non-African American GFR(CKD) 78 (>60 ml/min/1.73 sqM); Sodium 140 mmol/L (137-145)
--- NOTE | 2021-01-14 08:17 | P.PN ---
Subjective Progress Note Date: 01/14/21 Principal diagnosis: GI bleed, acute ST elevated [place] 55-year-old female patient, presented to the hospital because of chest pain and she was diagnosed having an acute STEMI, taken to cardiac catheterization underwent emergent catheterization she was found to have disease involving the LAD. The patient underwent a opacity and stenting 2 with successful angiographic results. Left ventricular diastolic pressure was estimated to be around 20. The patient was started on accommodation of aspirin, Brilinta and Eliquis. She was admitted to the intensive care unit for further monitoring. She is known to have previous history of SVT that was ablated and she also has a previous history of atrial fibrillation induced by Zofran related prolongation of the QT. The patient is also known to have history of Crohn's disease with asthma relatively well controlled being followed up by cardiology and she has been maintained on a combination of mesalamine and Levsin. Note that this afternoon, the patient developed an acute GI bleed where she had large amount of bright red blood per rectum with passing of clots. She did also extensive abdominal cramping and she is also experiencing constant nausea and emesis. She is on essentially dry heaving as the patient has not been able to take any other oral medication no she has been able to take the anti-emetics. She is hemodyn amically stable. No abdominal pain. Altered mentation. No chest pain. No respiratory difficulties. No aspiration. Her troponin peaked at 140. White cell cause of 14.5. The rest of the electrolytes are all within normal limits. on today's evaluation on 01/13/2021 patient seen in follow-up in the intensive care unit. She is status post PCI and stenting of the LAD 2 on 01/11/2021. She was started on aspirin, Brilinta and and Eliquis following stent placement. And has developed GI bleeding yesterday she had an episode of large bowel movement with gross blood and multiple blood clots. Patient does have a history of Crohn's disease and patient takes Humira weekly, Ms. olamine and Levsin. Her aspirin, Brilinta and Eliquis have been on hold. She has not required any blood transfusions, today's hemoglobin is 12.6, in addition she had multiple episodes of vomiting yesterday, which was non-bloody. Has a history of prolonged QT syndrome, previous history of SVT with previous ablation, intolerant to Zofran. Yesterday we discontinued her Reglan, she was given IM Compazine, overnight her nausea and vomiting have significantly improved, she has not had recurrence of bloody stools since the one episode that she reported yesterday. Hemodynamically she has remained stable, she is breathing comfortably, she is on room air with a pulse ox of 97%, she is in sinus mechanism, with a rate of 73. Blood pressure is 128/88. No complaints of chest pain, no shortness of breath, lung sounds reveal some mild bibasilar crackles, no wheezing. No coughing. 0.9 normal saline at a rate of 75 ML per hour. She has been nothing by mouth for last 24 hours, she was seen in consultation by GI service. No endoscopy is recommended at this time, continue conservative treatment, patient was placed on IV steroids. TMs abdomen and pelvis showed no evidence acute abdomen or pelvis. 4 chronic changes in the sigmoid colon consistent with sequela of long-standing colitis. No bowel masses, and no evidence of a fistula. On today's exam patient is feeling much better, she's had several episodes of small volume of vomiting, which was nonbloody, overall much less nauseous, abdomen is still slightly tender across the lower abdomen, but soft. Is tolerating sips of clear liquids. On 01/14/2021 patient seen in follow-up in the intensive care unit. Patient was restarted on aspirin number went yesterday with GI service permission, and she has not had any rebleeding in the last 24 hours. No episodes of melena, or bloody blood in bowel movements since 01/12/2021. Was a has significantly improved, patient has not required any Compazine overnight. This morning she seen in the intensive care unit, she is awake and alert, oriented 3, she is resting comfortably in bed, no shortness of breath, no complaints of chest pain, no abdominal pain. Vital signs have been stable, she is on room air, she is breathing comfortable, lung sounds are clear, she is in sinus mechanism with a controlled rate, depressed ST an inverted T, QT interval is 0.3 ms this morning. Patient remains on IV Solu-Medrol 20 mg every 8 hours. Patient is on balsalazide, and Levsin. She is also on high-dose Lipitor, Aldactone, Diovan, and Coreg. She has had no acute events overnight. She has no infusing IVs. She was upgraded to a heart healthy diet and is tolerating it well. This morning's labs have been reviewed, white blood cell count is 12.2, hemoglobin is 12.1, platelet count was 341, sodium is 140, potassium is 4.0, chloride is 110, BUN is 24, creatinine 0.84. Objective - Vital Signs Vital signs: Vital Signs Temp 97.9 F 01/14/21 04:00 Pulse 62 01/14/21 00:00 Resp 16 01/14/21 04:00 BP 139/92 01/14/21 04:00 Pulse Ox 95 01/14/21 04:00 Intake & Output 01/13/21 01/14/21 01/14/21 18:59 06:59 18:59 Intake Total 315 0 Output Total 0 Balance 315 0 Weight 93.8 kg Intake: IV 75 Sodium Chloride 0.9% 1, 75 000 ml @ 75 mls/hr IV . [id number] [facility] Rx#:[id number] Oral 240 0 Output: Urine 0 Other: Voiding Method Toilet # Voids 1 2 - Exam GENERAL EXAM: Alert, pleasant, 56-year-old white female, resting comfortably in bed, in intensive care unit, breathing currently, on room air, pulse ox is 96% comfortable in no apparent distress. HEAD: Normocephalic/atraumatic. EYES: Normal reaction of pupils, equal size. Conjunctiva pink, sclera white. NOSE: Clear with pink turbinates. THROAT: No erythema or exudates. NECK: No masses, no JVD, no thyroid enlargement, no adenopathy. CHEST: No chest wall deformity. Symmetrical expansion. LUNGS: Equal air entry with basilar crackles CVS: Regular rate and rhythm, normal S1 and S2, no gallops, no murmurs, no rubs ABDOMEN: Soft, obese, some tenderness reported across the lower abdomen, No hepatosplenomegaly, normal bowel sounds, no guarding or rigidity. EXTREMITIES: No clubbing, no edema, no cyanosis, 2+ pulses and upper and lower extremities. MUSCULOSKELETAL: Muscle strength and tone normal. SPINE: No scoliosis or deformity SKIN: No rashes CENTRAL NERVOUS SYSTEM: Alert and oriented -3. No focal deficits, tone is normal in all 4 extremities. PSYCHIATRIC: Alert and oriented -3. Appropriate affect. Intact judgment and insight. - Labs CBC & Chem 7: 01/14/21 07:13 01/14/21 07:13 Labs: Abnormal Lab Results - Last 24 Hours (Table) 01/14/21 01/14/21 Range/Units 07:13 07:13 WBC 12.2 H (3.8-10.6) k/uL Neutrophils # 9.7 H (1.3-7.7) k/uL Chloride 110 H (98-107) mmol/L BUN 24 H (7-17) mg/dL Glucose 123 H (74-99) mg/dL Assessment and Plan Plan: Assessment: 1 acute sigmoid elevation myocardial infarction, anterior wall, post cardiac catheterization and stenting of the LAD 2. Currently free of any chest pain and the patient is hemodynamic is stable. 2 acute lower GI bleeding currently under investigation. She is known to have underlying of some other bowel disease/Crohn's disease which has been essentially under adequate control prior to this acute cardiac event. She has been maintained on mesalamine and Levsin. Noted the patient has taken a com bination of aspirin, Brilinta andEliquis post cardiac procedures. Today's hemoglobin on 01/13/2021 is stable at 12.6, patient has not required any blood transfusions. Did episodes of bloody bowel movements overnight 3 nausea and emesis, currently under investigation.. Of concern is a previous history of Zofran induced QT prolongation with cardiac arrest. improved. The abdomen and pelvis computed tomography scan showed no acute intra-abdominal process 4 history of Crohn's disease 5 history of prolongation of QT interval secondary to Zofran with subsequent cardiac arrest 6 depression 7 fibromyalgia 8 hypertension 9 ischemic cardiomyopathy EF of 30-35% and possible apical thrombus per the echo report Plan: no episodes of GI bleeding since restarting of the aspirin and Brilinta, Nausea and vomiting have improved No complaints of chest pain, vital signs are stable hemoglobin is stable Switch IV Solu-Medrol to oral prednisone 20 mg daily no acute events overnight Tolerating regular diet Patient can be transferred out of intensive care unit to selective care unit t idalmis if remains stable I performed a history & physical examination of the patient and discussed their management with my nurse practitioner, Margi Fuentes. I reviewed the nurse practitioner's note and agree with the documented findings and plan of care. Lung sounds are positive for diffuse wheezes throughout the lung p[place]. The findings and the impression was discussed with the patient. I attest to the documentation by the nurse practitioner. Time with Patient: Less than 30
--- NOTE | 2021-01-14 09:25 | P.PN ---
Subjective Progress Note Date: 01/14/21 Principal diagnosis: Abdominal pain Patient seems to be doing better today. Says she has little discomfort. White blood cell count 12.2, hemoglobin 12.1. She has not had a bowel movement since 2 days ago. Objective - Vital Signs Vital signs: Vital Signs Temp 98.2 F 01/14/21 08:00 Pulse 62 01/14/21 08:00 Resp 23 01/14/21 08:00 BP 139/92 01/14/21 08:00 Pulse Ox 96 01/14/21 08:00 Intake & Output 01/13/21 01/14/21 01/14/21 18:59 06:59 18:59 Intake Total 315 0 Output Total 0 Balance 315 0 Weight 93.8 kg Intake: IV 75 Sodium Chloride 0.9% 1, 75 000 ml @ 75 mls/hr IV . [id number] [facility] Rx#:[id number] Oral 240 0 Output: Urine 0 Other: Voiding Method Toilet # Voids 1 2 - Exam Abdomen: Soft, nontender, nondistended - Labs CBC & Chem 7: 01/14/21 07:13 01/14/21 07:13 Labs: Abnormal Lab Results - Last 24 Hours (Table) 01/14/21 01/14/21 Range/Units 07:13 07:13 WBC 12.2 H (3.8-10.6) k/uL Neutrophils # 9.7 H (1.3-7.7) k/uL Chloride 110 H (98-107) mmol/L BUN 24 H (7-17) mg/dL Glucose 123 H (74-99) mg/dL Assessment and Plan (1) Abdominal pain Narrative/Plan: Patient doing well at this time. No further bleeding or abdominal pain at this time significance. Continue steroids for suspected Crohn's colitis. We'll sign off. Please call if needed. Current Visit: Yes Status: Acute Code(s): R10.9 - UNSPECIFIED ABDOMINAL PAIN SNOMED Code(s): 69596505
[2021-01-14] MEDS: ASPIRIN 81 MG PO SCH (10:05)
[2021-01-14] MEDS: SPIRONOLACTONE 25 MG TAB PO SCH (10:06)
[2021-01-14] MEDS: TICAGRELOR 90 MG TAB PO SCH ×2 (10:06→21:45)
[2021-01-14] MEDS: PANTOPRAZOLE 40 MG/10 ML VIAL IVP SCH (10:06)
[2021-01-14] MEDS: predniSONE 20 MG TAB PO SCH (10:06)
[2021-01-14] MEDS: BACLOFEN 10 MG TAB PO SCH ×2 (10:06→21:45)
--- NOTE | 2021-01-14 12:28 | P.PN ---
Subjective Patient is walking around the room. She looks comfortable. Denies any chest discomfort no dizziness lightheadedness no palpitations Blood pressure is at the upper limits of normal She has had no more nausea and is able to tolerate her oral medications Examination blood pressure 139/92 mmHg pulse rate in the 60s and 70s, respirations 16-18 Breath sounds are clear no rhonchi no crackles Heart sounds S1 and S2 are normal no murmurs or gallops or rub Impression Acute anterior wall MT Ischemic cardio myopathy anterior apical large apical infarct I don't appreciate any clear-cut thrombus on 2-D echo. Trabeculations noted in the LV apex Hypertension Suggest Increase carvedilol to 6.25 mg twice daily Increase spironolactone to 50 mg by mouth daily May transfer to 3 S. Objective - Vital Signs Vital signs: Vital Signs Temp 98.2 F 01/14/21 08:00 Pulse 62 01/14/21 08:00 Resp 23 01/14/21 08:00 BP 139/92 01/14/21 08:00 Pulse Ox 96 01/14/21 08:00 Intake & Output 01/13/21 01/14/21 01/14/21 18:59 06:59 18:59 Intake Total 315 0 Output Total 0 Balance 315 0 Weight 93.8 kg Intake: IV 75 Sodium Chloride 0.9% 1, 75 000 ml @ 75 mls/hr IV . [id number] [facility] Rx#:[id number] Oral 240 0 Output: Urine 0 Other: Voiding Method Toilet # Voids 1 2 - Labs CBC & Chem 7: 01/14/21 07:13 01/14/21 07:13 Labs: Abnormal Lab Results - Last 24 Hours (Table) 01/14/21 01/14/21 Range/Units 07:13 07:13 WBC 12.2 H (3.8-10.6) k/uL Neutrophils # 9.7 H (1.3-7.7) k/uL Chloride 110 H (98-107) mmol/L BUN 24 H (7-17) mg/dL Glucose 123 H (74-99) mg/dL
[2021-01-14] MEDS: VALSARTAN 80 MG TAB PO SCH ×2 (12:49→21:46)
[2021-01-14] MEDS: carvediloL 3.125 MG TAB PO SCH (16:30)
--- NOTE | 2021-01-14 19:38 | P.PN ---
Progress Note - Text Progress Note Date: 01/14/21 Chief Complaint: Blood per rectum History of presenting complaint: This is a pleasant 55-year-old patient of Dr. Deleon. She does follow with Dr. Angelo shepard from cardiology for arrhythmia's. She's had a prior cardiac ablation. Chronic stable medical conditions include fibromyalgia, hypertension, Crohn's, long QT, anxiety depression, arthritis. Patient been smoking off and on. Patient around 4:00 this afternoon became dizzy and nauseated developed back pain coming from the chest neck and left arm. Patient started perspiring. Decided to come into the hospital. She was taken to the labor relations worker she did get 2 stents/PTCa proximally occluded LAD and that's when her pain subsided. Currently nicely. Currently no chest pain. She was initially diagnosed to have acute ST elevation [place]. January 12: Overnight patient's blood pressure been running high. Having nausea vomiting. Different antiemetics were tried. I prescribed this morning scopolamine patch. Told to avoid water. Patient has a right groin FemoStop. Having right lower abdomen abdominal pain. January 13: Yesterday late afternoon patient developed blood in the stool. With abdominal pain. Consultation to GI and surgery was done. Jackson to be flareup of colitis. IV Solu-Medrol started. Today decreased abdominal pain was still present. Normal bleeding per rectum. On a liquid diet. Computed tomography scan of the abdomen had shown colitis. [Hospital has no GI coverage over the weekend] January 14: ICU: Sitting up in bed. Advanced regular diet. He will blood in the stool. No abdominal pain. Blood pressure control. No chest pain and breathing stable. Review of systems: Was done for constitutional, cardiovascular, GI, pulmonary. relevant finding as above Active Medications Aspirin (Aspirin 81 Mg) 81 mg PO DAILY [facility] Last Admin: 01/14/21 10:05 Dose: 81 mg Documented by: Atorvastatin Calcium (Atorvastatin 80 Mg Tab) 80 mg PO HS [facility] Last Admin: 01/13/21 20:38 Dose: 80 mg Documented by: Baclofen (Baclofen 10 Mg Tab) 10 mg PO BID [facility] Last Admin: 01/14/21 10:06 Dose: 10 mg Documented by: Balsalazide (Balsalazide Disodium 750 Mg Capsule) 2,250 mg PO TID [facility] Last Admin: 01/14/21 16:28 Dose: 2,250 mg Documented by: Carvedilol (Carvedilol 3.125 Mg Tab) 6.25 mg PO BID-W/MEALS [facility] Last Admin: 01/14/21 16:30 Dose: 6.25 mg Documented by: Hyoscyamine (Hyoscyamine Sulfate 0.125 Mg Tab) 0.125 mg PO Q4H PRN PRN Reason: ibs Morphine Sulfate (Morphine Sulfate 2 Mg/Ml Syringe) 1 mg IVP Q4HR PRN PRN Reason: Pain/Discomfort Last Admin: 01/14/21 12:51 Dose: 1 mg Documented by: Non-Formulary Medication (Adalimumab [Humira(Cf) Pen]) 40 mg SQ MO [facility] Pantoprazole Sodium (Pantoprazole 40 Mg/10 Ml Vial) 40 mg IVP DAILY [facility] Last Admin: 01/14/21 10:06 Dose: 40 mg Documented by: Prednisone (Prednisone 20 Mg Tab) 20 mg PO DAILY [facility] Last Admin: 01/14/21 10:06 Dose: 20 mg Documented by: Prochlorperazine Edisylate (Prochlorperazine Inj 10 Mg/2 Ml Vial) 10 mg IVP Q6HR PRN PRN Reason: Nausea And Vomiting Last Admin: 01/12/21 21:18 Dose: 10 mg Documented by: Scopolamine (Scopolamine 1.5mg/72hr Patch) 1 patch TRANSDERM Q72H [facility] Last Admin: 01/12/21 13:00 Dose: 1 patch Documented by: Spironolactone (Spironolactone 25 Mg Tab) 50 mg PO DAILY [facility] Ticagrelor (Ticagrelor 90 Mg Tab) 90 mg PO BID [facility] Last Admin: 01/14/21 10:06 Dose: 90 mg Documented by: Valsartan (Valsartan 80 Mg Tab) 80 mg PO BID [facility] Last Admin: 01/14/21 12:49 Dose: 80 mg Documented by: Past medical history to include: Fibromyalgia, hypertension, Crohn's disease, along daily, anxiety depression, osteomyelitis arthritis, Social history: This with 2 daughters. On disability. Smoking off and on. No alcohol. Family history: Reviewed, noncontributory to presentation Physical examination: VITAL SIGNS: 98.4, 75, 23, 1:30/71, 97% room air GENERAL: Sitting up in bed, comfortable, EYES: Pupils equal. Conjunctiva normal. HEENT: External appearance of nose and ears normal, oral cavity grossly normal. NECK: JVD not raised; masses not palpable. HEART: First and second heart sounds are normal; no edema. LUNGS: Respiratory rate normal; decreased breath sound. ABDOMEN: Soft, no tenderness, no guarding rigidity, liver spleen not palpable, no masses palpable. Right groin FemoStop PSYCH: Alert and oriented x3; mood and affect normal. INVESTIGATIONS, reviewed in the clinical context: January 14: WBC 12.2 hemoglobin 12.1 platelets 341 potassium 4 creatinine 0.84 January 13: WBC 13.3 hemoglobin 12.6 potassium 4.7 creatinine 0.83 Computed tomography scan of the abdomen(evidence of sigmoid colitis. Right mega colectomy Right groin ultrasound: Negative for any aneurysm/clot 2-D echocardiogram: EF 30-35% moderate concentric LVH wall motion osmolality. January 12: WBC 14.5 hemoglobin 12.7 potassium 4.2 creatinine 0.78 WBC 14.3 hemoglobin 12.4 platelets 360 potassium 3.8 creatinine 1.03 glucose 113 Troponin I less than 0.012 EKG tracing personally reviewed by me-ST elevation in lead V2 V3, ST depression in inferior leads Chest x-ray film personally reviewed by me-portable/no obvious infiltrate Assessment and plan: -Acute ST elevation myocardial infarction. Proximal LAD PTCA/ 2 stents. Aspirin, Lipitor, Brilinta -Acute lower GI bleed from possible flareup Crohn's colitis, patient being on antiplatelet agents Follow H&H -Acute ischemic cardiomyopathy/CHF from systolic dysfunction EF 30-35% Aldactone 50 mg daily. Coreg 6.25 mg twice a day -Obesity BMI 39.9 Dietitian. Weight loss measures -Essential hypertension . Coreg 6.25 twice a day. Valsartan 80 mg twice a day -Crohn's disease, with acute exacerbation: Mesalamine 0.375 g by mouth 4 times a day, IV [id number] to by mouth prednisone 20 mg -Muscle spasm Baclofen 10 mg twice a day -Hyperlipidemia Lipitor 80 mg daily -Anxiety depression, controlled -Persistent nausea with some vomiting: Improved Scopolamine patch. IV Compazine when necessary Clinically doing better. Changed to by mouth prednisone. Other medications to continue. Discussed with patient. Diet has been advanced
[2021-01-14] MEDS: ATORVASTATIN 80 MG TAB PO SCH (21:45)
[2021-01-14] MEDS: FAMOTIDINE 20 MG TAB PO SCH (21:45)
[2021-01-15 04:38] LABS: Basophils % (A) 0 %; Eosinophils % (A) 0 %; HCT 34.2 % (34.0-46.0); HGB 11.8 gm/dL (11.4-16.0); Lymphocytes # (A) 2.5 k/uL (1.0-4.8); Lymphocytes % (A) 24 %; MCH 33.1 pg (25.0-35.0); MCHC 34.5 g/dL (31.0-37.0); MCV 95.9 fL (80.0-100.0); Mean Platelet Volume 7.4; Monocytes # (A) 0.6 k/uL (0-1.0); Monocytes % (A) 6 %; Neutrophils % (A) 67 %; Platelet Count 327 k/uL (150-450); RBC 3.56 m/uL (3.80-5.40); RDW 14.8 % (11.5-15.5); WBC 10.5 k/uL (3.8-10.6)
[2021-01-15 04:46] LABS: Calcium 8.6 mg/dL (8.4-10.2); Potassium 3.4 mmol/L (3.5-5.1)
[2021-01-15] MEDS ORDERED: Potassium Replacement Protocol 1 EACH MISC MISCELLANE PRN (07:22)
--- NOTE | 2021-01-15 08:28 | P.PN ---
Subjective Progress Note Date: 01/15/21 55-year-old female patient, presented to the hospital because of chest pain and she was diagnosed having an acute STEMI, taken to cardiac catheterization underwent emergent catheterization she was found to have disease involving the LAD. The patient underwent a opacity and stenting 2 with successful an giographic results. Left ventricular diastolic pressure was estimated to be around 20. The patient was started on accommodation of aspirin, Brilinta and Eliquis. She was admitted to the intensive care unit for further monitoring. She is known to have previous history of SVT that was ablated and she also has a previous history of atrial fibrillation induced by Zofran related prolongation of the QT. The patient is also known to have history of Crohn's disease with asthma relatively well controlled being followed up by cardiology and she has been maintained on a combination of mesalamine and Levsin. Note that this afternoon, the patient developed an acute GI bleed where she had large amount of bright red blood per rectum with passing of clots. She did also extensive abdominal cramping and she is also experiencing constant nausea and emesis. She is on essentially dry heaving as the patient has not been able to take any other oral medication no she has been able to take the anti-emetics. She is hemodynamically stable. No abdominal pain. Altered mentation. No chest pain. No respiratory difficulties. No aspiration. Her troponin peaked at 140. White cell cause of 14.5. The rest of the electrolytes are all within normal limits. on today's evaluation on 01/13/2021 patient seen in follow-up in the intensive care unit. She is status post PCI and stenting of the LAD 2 on 01/11/2021. She was started on aspirin, Brilinta and and Eliquis following stent placement. And has developed GI bleeding yesterday she had an episode of large bowel movement with gross blood and multiple blood clots. Patient does have a history of Crohn's disease and patient takes Humira weekly, Ms. olamine and Levsin. Her aspirin, Brilinta and Eliquis have been on hold. She has not required any blood transfusions, today's hemoglobin is 12.6, in addition she had multiple episodes of vomiting yesterday, which was non-bloody. Has a history of prolonged QT syndrome, previous history of SVT with previous ablation, intolerant to Zofran. Yesterday we discontinued her Reglan, she was given IM Compazine, overnight her nausea and vomiting have significantly improved, she has not had recurrence of bloody stools since the one episode that she reported yesterday. Hemodynamically she has remained stable, she is breathing comfortably, she is on room air with a pulse ox of 97%, she is in sinus mechanism, with a rate of 73. Blood pressure is 128/88. No complaints of chest pain, no shortness of breath, lung sounds reveal some mild bibasilar crackles, no wheezing. No coughing. 0.9 normal saline at a rate of 75 ML per hour. She has been nothing by mouth for last 24 hours, she was seen in consultation by GI service. No endoscopy is recommended at this time, continue conservative treatment, patient was placed on IV steroids. TMs abdomen and pelvis showed no evidence acute abdomen or pelvis. 4 chronic changes in the sigmoid colon consistent with sequela of long-standing colitis. No bowel masses, and no evidence of a fistula. On today's exam patient is feeling much better, she's had several episodes of small volume of vomiting, which was nonbloody, overall much less nauseous, abdomen is still slightly tender across the lower abdomen, but soft. Is tolerating sips of clear liquids. On 01/14/2021 patient seen in follow-up in the intensive care unit. Patient was restarted on aspirin number went yesterday with GI service permission, and she has not had any rebleeding in the last 24 hours. No episodes of melena, or bloody blood in bowel movements since 01/12/2021. Was a has significantly improved, patient has not required any Compazine overnight. This morning she seen in the intensive care unit, she is awake and alert, oriented 3, she is resting comfortably in bed, no shortness of breath, no complaints of chest pain, no abdominal pain. Vital signs have been stable, she is on room air, she is breathing comfortable, lung sounds are clear, she is in sinus mechanism with a controlled rate, depressed ST an inverted T, QT interval is 0.3 ms this morning. Patient remains on IV Solu-Medrol 20 mg every 8 hours. Patient is on balsalazide, and Levsin. She is also on high-dose Lipitor, Aldactone, Diovan, and Coreg. She has had no acute events overnight. She has no infusing IVs. She was upgraded to a heart healthy diet and is tolerating it well. This lorie alexandre's labs have been reviewed, white blood cell count is 12.2, hemoglobin is 12.1, platelet count was 341, sodium is 140, potassium is 4.0, chloride is 110, BUN is 24, creatinine 0.84. On 01/15/2021, the patient is doing well. No complaints. No GI bleeding. No chest pain. Tolerating diet. She had a regular bowel movement. Taken off the IV Solu-Medrol. Currently on oral prednisone. No episodes of GI bleeding. No chest pain. No cardiac arrhythmias. The patient is back on her antiplatelet agents and she is currently on a combination of aspirin and Brilinta. Hemodynamically stable. No nausea. No emesis. Blood work shows a hemoglobin of 11.8 which is essentially stable. BUN is at 26 with a creatinine of 0.9 which is also stable. Patient is in the intensive care unit and the patient is being monitored post myocardial infarction and post coronary angioplasty and stenting. GI complications have essentially settled at this point in time. No cardiac arrhythmias have been noted. Objective - Vital Signs Vital signs: Vital Signs Temp 97.6 F 01/15/21 04:00 Pulse 72 01/15/21 04:00 Resp 27 H 01/15/21 04:00 BP 139/96 01/15/21 04:00 Pulse Ox 95 01/15/21 04:00 Intake & Output 01/14/21 01/15/21 01/15/21 18:59 06:59 18:59 Output Total 500 0 Balance -500 0 Weight 93.6 kg Output: Urine 500 0 Other: Voiding Method Toilet # Voids 0 0 # Bowel Movements 0 - Exam GENERAL EXAM: Alert, pleasant, 56-year-old white female, resting comfortably in bed, in intensive care unit, breathing currently, on room air, pulse ox is 96% comfortable in no apparent distress. HEAD: Normocephalic/atraumatic. EYES: Normal reaction of pupils, equal size. Conjunctiva pink, sclera white. NOSE: Clear with pink turbinates. THROAT: No erythema or exudates. NECK: No masses, no JVD, no thyroid enlargement, no adenopathy. CHEST: No chest wall deformity. Symmetrical expansion. LUNGS: Equal air entry with basilar crackles CVS: Regular rate and rhythm, normal S1 and S2, no gallops, no murmurs, no rubs ABDOMEN: Soft, obese, some tenderness reported across the lower abdomen, No hepatosplenomegaly, normal bowel sounds, no guarding or rigidity. EXTREMITIES: No clubbing, no edema, no cyanosis, 2+ pulses and upper and lower extremities. MUSCULOSKELETAL: Muscle strength and tone normal. SPINE: No scoliosis or deformity SKIN: No rashes CENTRAL NERVOUS SYSTEM: Alert and oriented -3. No focal deficits, tone is normal in all 4 extremities. PSYCHIATRIC: Alert and oriented -3. Appropriate affect. Intact judgment and insight. - Labs CBC & Chem 7: 01/15/21 04:02 01/15/21 04:02 Labs: Abnormal Lab Results - Last 24 Hours (Table) 01/15/21 01/15/21 Range/Units 04:02 04:02 RBC 3.56 L (3.80-5.40) m/uL Potassium 3.4 L (3.5-5.1) mmol/L BUN 26 H (7-17) mg/dL Assessment and Plan Plan: 1 acute BEAU elevation myocardial infarction, anterior wall, post cardiac catheterization and stenting of the LAD 2. Currently free of any chest pain and the patient is hemodynamic is stable. The patient was restarted on her routine antiplatelet agents and the patient is currently a combination of aspirin and her length. 2 acute lower GI bleeding currently under investigation. She is known to have underlying of some other bowel disease/Crohn's disease which has been essentially under adequate control prior to this acute cardiac event. She has been maintained on mesalamine and Levsin. Noted the patient has taken a combination of aspirin, Brilinta post cardiac procedures. 3 nausea and emesis, currently under investigation.. Of concern is a previous history of Zofran induced QT prolongation with cardiac arrest. improved. The abdomen and pelvis computed tomography scan showed no acute intra-abdominal process and clinically the patient is improved and her symptoms of nausea and emesis has essentially recovered. 4 history of Crohn's disease 5 history of prolongation of QT interval secondary to Zofran with subsequent cardiac arrest 6 depression 7 fibromyalgia 8 hypertension 9 ischemic cardiomyopathy EF of 30-35% and possible apical thrombus per the echo report Plan: Continue aspirin and Brilinta Continue Coreg 6.25 mg by mouth twice a day Continue Aldactone 50 mg by mouth daily Continue Diovan 80 mg by mouth twice a day Continue Humira on outpatient basis regarding her Crohn's disease Nausea and vomiting have improved No complaints of chest pain, vital signs are stable hemoglobin is stable prednisone 20 mg daily for 5 days and 10 mg for 5 days and then stop Tolerating regular diet Patient can be transferred out of intensive care unit to selective care unit today, possible home today
[2021-01-15] MEDS: VALSARTAN 80 MG TAB PO SCH ×2 (09:03→21:26)
[2021-01-15] MEDS: BACLOFEN 10 MG TAB PO SCH ×2 (09:03→21:26)
[2021-01-15] MEDS: FAMOTIDINE 20 MG TAB PO SCH ×2 (09:03→21:26)
[2021-01-15] MEDS: POTASSIUM CHLORIDE ER 20 MEQ TAB.ER PO SCH ×2 (09:03→09:19)
[2021-01-15] MEDS: ASPIRIN 81 MG PO SCH (09:03)
[2021-01-15] MEDS: BALSALAZIDE DISODIUM 750 MG CAPSULE PO SCH ×3 (09:03→21:26)
[2021-01-15] MEDS: TICAGRELOR 90 MG TAB PO SCH ×2 (09:03→21:26)
[2021-01-15] MEDS: carvediloL 3.125 MG TAB PO SCH ×2 (09:03→16:50)
[2021-01-15] MEDS: predniSONE 20 MG TAB PO SCH (09:04)
[2021-01-15] MEDS: SPIRONOLACTONE 25 MG TAB PO SCH (09:04)
[2021-01-15] MEDS: SCOPOLAMINE 1.5MG/72HR PATCH TRANSDERM SCH (09:19)
--- NOTE | 2021-01-15 11:52 | P.PN ---
Subjective Patient is doing well. No chest discomfort no dizziness no lightheadedness Blood pressure is better controlled Heart rates in the 50s and 60s On examination lungs are clear no rhonchi no crackles Heart sounds S1-S2 are normal no murmurs or gallops or rub Impression Ischemic cardio myopathy on medical treatment Status post acute HI status post stenting Suggest LifeVest at discharge Continue maximal medical treatment Patient shouldn't be on dual antiplatelet therapy. Prior to discharge he should make sure that the patient can afford Brilinta Objective - Vital Signs Vital signs: Vital Signs Temp 98.6 F 01/15/21 08:00 Pulse 72 01/15/21 08:00 Resp 25 H 01/15/21 08:00 BP 135/80 01/15/21 08:00 Pulse Ox 93 L 01/15/21 08:00 Intake & Output 01/14/21 01/15/21 01/15/21 18:59 06:59 18:59 Output Total 500 0 Balance -500 0 Weight 93.6 kg Output: Urine 500 0 Other: Voiding Method Toilet Toilet # Voids 0 0 1 # Bowel Movements 0 1 - Labs CBC & Chem 7: 01/15/21 04:02 01/15/21 04:02 Labs: Abnormal Lab Results - Last 24 Hours (Table) 01/15/21 01/15/21 Range/Units 04:02 04:02 RBC 3.56 L (3.80-5.40) m/uL Potassium 3.4 L (3.5-5.1) mmol/L BUN 26 H (7-17) mg/dL
--- NOTE | 2021-01-15 14:13 | P.PN ---
Progress Note - Text Progress Note Date: 01/15/21 Chief Complaint: Blood per rectum History of presenting complaint: This is a pleasant 55-year-old patient of Dr. Deleon. She does follow with Dr. Angelo shepard from cardiology for arrhythmia's. She's had a prior cardiac ablation. Chronic stable medical conditions include fibromyalgia, hypertension, Crohn's, long QT, anxiety depression, arthritis. Patient been smoking off and on. Patient around 4:00 this afternoon became dizzy and nauseated developed back pain coming from the chest neck and left arm. Patient started perspiring. Decided to come into the hospital. She was taken to the lab animal technician she did get 2 stents/PTCa proximally occluded LAD and that's when her pain subsided. Currently nicely. Currently no chest pain. She was initially diagnosed to have acute ST elevation MO. January 12: Overnight patient's blood pressure been running high. Having nausea vomiting. Different antiemetics were tried. I prescribed this morning scopolamine patch. Told to avoid water. Patient has a right groin FemoStop. Having right lower abdomen abdominal pain. January 13: Yesterday late afternoon patient developed blood in the stool. With abdominal pain. Consultation to GI and surgery was done. [place] to be flareup of colitis. IV Solu-Medrol started. Today decreased abdominal pain was still present. Normal bleeding per rectum. On a liquid diet. Computed tomography scan of the abdomen had shown colitis. [Hospital has no GI coverage over the weekend] January 14: ICU: Sitting up in bed. Advanced regular diet. He will blood in the stool. No abdominal pain. Blood pressure control. No chest pain and breathing stable. January 15: ICU: Sitting up in a chair. On a regular diet. No abdominal pain. Yesterday night has about 6 bowel movements. At her baseline normally has anywhere from 8-15 bowel movements a day. No chest pain or shortness of breath Review of systems: Was done for constitutional, cardiovascular, GI, pulmonary. relevant finding as above Active Medications Aspirin (Aspirin 81 Mg) 81 mg PO DAILY [facility] Last Admin: 01/15/21 09:03 Dose: 81 mg Documented by: Atorvastatin Calcium (Atorvastatin 80 Mg Tab) 80 mg PO HS [facility] Last Admin: 01/14/21 21:45 Dose: 80 mg Documented by: Baclofen (Baclofen 10 Mg Tab) 10 mg PO BID [facility] Last Admin: 01/15/21 09:03 Dose: 10 mg Documented by: Balsalazide (Balsalazide Disodium 750 Mg Capsule) 2,250 mg PO TID [facility] Last Admin: 01/15/21 09:03 Dose: 2,250 mg Documented by: Carvedilol (Carvedilol 3.125 Mg Tab) 6.25 mg PO BID-W/MEALS [facility] Last Admin: 01/15/21 09:03 Dose: 6.25 mg Documented by: Famotidine (Famotidine 20 Mg Tab) 20 mg PO BID [facility] Last Admin: 01/15/21 09:03 Dose: 20 mg Documented by: Hyoscyamine (Hyoscyamine Sulfate 0.125 Mg Tab) 0.125 mg PO Q4H PRN PRN Reason: ibs Morphine Sulfate (Morphine Sulfate 2 Mg/Ml Syringe) 1 mg IVP Q4HR PRN PRN Reason: Pain/Discomfort Last Admin: 01/14/21 12:51 Dose: 1 mg Documented by: Non-Formulary Medication (Adalimumab [Humira(Cf) Pen]) 40 mg SQ MO [facility] Prednisone (Prednisone 20 Mg Tab) 20 mg PO DAILY [facility] Stop: 01/18/21 09:01 Last Admin: 01/15/21 09:04 Dose: 20 mg Documented by: Prednisone (Prednisone 10 Mg Tab) 10 mg PO DAILY [facility] Stop: 01/24/21 09:01 Prochlorperazine Edisylate (Prochlorperazine Inj 10 Mg/2 Ml Vial) 10 mg IVP Q6HR PRN PRN Reason: Nausea And Vomiting Last Admin: 01/12/21 21:18 Dose: 10 mg Documented by: Spironolactone (Spironolactone 25 Mg Tab) 50 mg PO DAILY [facility] Last Admin: 01/15/21 09:04 Dose: 50 mg Documented by: Ticagrelor (Ticagrelor 90 Mg Tab) 90 mg PO BID [facility] Last Admin: 01/15/21 09:03 Dose: 90 mg Documented by: Valsartan (Valsartan 80 Mg Tab) 80 mg PO BID [facility] Last Admin: 01/15/21 09:03 Dose: 80 mg Documented by: Past medical history to include: Fibromyalgia, hypertension, Crohn's disease, along daily, anxiety depression, osteomyelitis arthritis, Social history: This with 2 daughters. On disability. Smoking off and on. No alcohol. Family history: Reviewed, noncontributory to presentation Physical examination: VITAL SIGNS: 98.6, 64, 20, 109/74, 96% room air GENERAL: Sitting up in chair, comfortable, EYES: Pupils equal. Conjunctiva normal. HEENT: External appearance of nose and ears normal, oral cavity grossly normal. NECK: JVD not raised; masses not palpable. HEART: First and second heart sounds are normal; no edema. LUNGS: Respiratory rate normal; decreased breath sound. ABDOMEN: Soft, no tenderness, no guarding rigidity, liver spleen not palpable, no masses palpable. Right groin FemoStop PSYCH: Alert and oriented x3; mood and affect normal. INVESTIGATIONS, reviewed in the clinical context: January 15: WBC 10.5 hemoglobin 11.8 potassium 3.4 creatinine 0.91 January 14: WBC 12.2 hemoglobin 12.1 platelets 341 potassium 4 creatinine 0.84 January 13: WBC 13.3 hemoglobin 12.6 potassium 4.7 creatinine 0.83 Computed tomography scan of the abdomen(evidence of sigmoid colitis. Right hemicolectomy Right groin ultrasound: Negative for any aneurysm/clot 2-D echocardiogram: EF 30-35% moderate concentric LVH wall motion osmolality. January 12: WBC 14.5 hemoglobin 12.7 potassium 4.2 creatinine 0.78 WBC 14.3 hemoglobin 12.4 platelets 360 potassium 3.8 creatinine 1.03 glucose 113 Troponin I less than 0.012 EKG tracing personally reviewed by me-ST elevation in lead V2 V3, ST depression in inferior leads Chest x-ray film personally reviewed by me-portable/no obvious infiltrate Assessment and plan: -Acute ST elevation myocardial infarction. Proximal LAD PTCA/ 2 stents. Aspirin, Lipitor, Brilinta -Acute lower GI bleed from possible flareup Crohn's colitis, patient being on antiplatelet agents: Improved Follow H&H -Acute ischemic cardiomyopathy/CHF from systolic dysfunction EF 30-35% Aldactone 50 mg daily. Coreg 6.25 mg twice a day -Obesity BMI 39.9 Dietitian. Weight loss measures -Essential hypertension . Coreg 6.25 twice a day. Valsartan 80 mg twice a day -Crohn's disease, with acute exacerbation: Improved Mesalamine 0.375 g by mouth 4 times a day, IV [id number] to by mouth prednisone 20 mg -Muscle spasm Baclofen 10 mg twice a day -Hyperlipidemia Lipitor 80 mg daily -Anxiety depression, controlled -Persistent nausea with some vomiting: Improved Scopolamine patch. IV Compazine when necessary Increase activity. Patient oriented oral prednisone. Breathing stable. 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 Hopefully discharge in next 24 hours.
[2021-01-15 20:35] LABS: Glucose,Whole Blood 122 mg/dL (75-99)
[2021-01-15] MEDS: ATORVASTATIN 80 MG TAB PO SCH (21:26)
[2021-01-16 04:21] VITALS: TEMP 98.3
[2021-01-16 04:22] LABS: Potassium 3.5 mmol/L (3.5-5.1)
[2021-01-16] MEDS: carvediloL 3.125 MG TAB PO SCH ×3 (07:08→15:41)
[2021-01-16 08:33] VITALS: BP 133/86
[2021-01-16] MEDS: TICAGRELOR 90 MG TAB PO SCH (08:33)
[2021-01-16] MEDS: ASPIRIN 81 MG PO SCH (08:33)
[2021-01-16] MEDS: BACLOFEN 10 MG TAB PO SCH (08:33)
[2021-01-16] MEDS: predniSONE 20 MG TAB PO SCH (08:33)
[2021-01-16] MEDS: SPIRONOLACTONE 25 MG TAB PO SCH (08:33)
[2021-01-16] MEDS: BALSALAZIDE DISODIUM 750 MG CAPSULE PO SCH ×2 (08:34→15:42)
[2021-01-16] MEDS: FAMOTIDINE 20 MG TAB PO SCH (08:34)
[2021-01-16] MEDS: VALSARTAN 80 MG TAB PO SCH (08:35)
[2021-01-16] MEDS ORDERED: NON FORMULARY DRUG (Adalimumab [Humira(Cf) Pen] 40 MG/0.4 ML Pen.Ij.Kit) SQ SCH (09:00)
--- NOTE | 2021-01-16 09:46 | P.PN ---
Subjective Progress Note Date: 01/16/21 Principal diagnosis: GI bleed, acute ST elevated [place] 55-year-old female patient, presented to the hospital because of chest pain and she was diagnosed having an acute STEMI, taken to cardiac catheterization underwent emergent catheterization she was found to have disease involving the LAD. The patient underwent a opacity and stenting 2 with successful angiographic results. Left ventricular diastolic pressure was estimated to be around 20. The patient was started on accommodation of aspirin, Brilinta and Eliquis. She was admitted to the intensive care unit for further monitoring. She is known to have previous history of SVT that was ablated and she also has a previous history of atrial fibrillation induced by Zofran related prolongation of the QT. The patient is also known to have history of Crohn's disease with asthma relatively well controlled being followed up by cardiology and she has been maintained on a combination of mesalamine and Levsin. Note that this afternoon, the patient developed an acute GI bleed where she had large amount of bright red blood per rectum with passing of clots. She did also extensive abdominal cramping and she is also experiencing constant nausea and emesis. She is on essentially dry heaving as the patient has not been able to take any other oral medication no she has been able to take the anti-emetics. She is hemodyn amically stable. No abdominal pain. Altered mentation. No chest pain. No respiratory difficulties. No aspiration. Her troponin peaked at 140. White cell cause of 14.5. The rest of the electrolytes are all within normal limits. on today's evaluation on 01/13/2021 patient seen in follow-up in the intensive care unit. She is status post PCI and stenting of the LAD 2 on 01/11/2021. She was started on aspirin, Brilinta and and Eliquis following stent placement. And has developed GI bleeding yesterday she had an episode of large bowel movement with gross blood and multiple blood clots. Patient does have a history of Crohn's disease and patient takes Humira weekly, Ms. olamine and Levsin. Her aspirin, Brilinta and Eliquis have been on hold. She has not required any blood transfusions, today's hemoglobin is 12.6, in addition she had multiple episodes of vomiting yesterday, which was non-bloody. Has a history of prolonged QT syndrome, previous history of SVT with previous ablation, intolerant to Zofran. Yesterday we discontinued her Reglan, she was given IM Compazine, overnight her nausea and vomiting have significantly improved, she has not had recurrence of bloody stools since the one episode that she reported yesterday. Hemodynamically she has remained stable, she is breathing comfortably, she is on room air with a pulse ox of 97%, she is in sinus mechanism, with a rate of 73. Blood pressure is 128/88. No complaints of chest pain, no shortness of breath, lung sounds reveal some mild bibasilar crackles, no wheezing. No coughing. 0.9 normal saline at a rate of 75 ML per hour. She has been nothing by mouth for last 24 hours, she was seen in consultation by GI service. No endoscopy is recommended at this time, continue conservative treatment, patient was placed on IV steroids. TMs abdomen and pelvis showed no evidence acute abdomen or pelvis. 4 chronic changes in the sigmoid colon consistent with sequela of long-standing colitis. No bowel masses, and no evidence of a fistula. On today's exam patient is feeling much better, she's had several episodes of small volume of vomiting, which was nonbloody, overall much less nauseous, abdomen is still slightly tender across the lower abdomen, but soft. Is tolerating sips of clear liquids. On 01/14/2021 patient seen in follow-up in the intensive care unit. Patient was restarted on aspirin number went yesterday with GI service permission, and she has not had any rebleeding in the last 24 hours. No episodes of melena, or bloody blood in bowel movements since 01/12/2021. Was a has significantly improved, patient has not required any Compazine overnight. This morning she seen in the intensive care unit, she is awake and alert, oriented 3, she is resting comfortably in bed, no shortness of breath, no complaints of chest pain, no abdominal pain. Vital signs have been stable, she is on room air, she is breathing comfortable, lung sounds are clear, she is in sinus mechanism with a controlled rate, depressed ST an inverted T, QT interval is 0.3 ms this morning. Patient remains on IV Solu-Medrol 20 mg every 8 hours. Patient is on balsalazide, and Levsin. She is also on high-dose Lipitor, Aldactone, Diovan, and Coreg. She has had no acute events overnight. She has no infusing IVs. She was upgraded to a heart healthy diet and is tolerating it well. This morning's labs have been reviewed, white blood cell count is 12.2, hemoglobin is 12.1, platelet count was 341, sodium is 140, potassium is 4.0, chloride is 110, BUN is 24, creatinine 0.84. On today's evaluation on 01/16/2021 patient seen in follow-up in intensive care unit, she has remained stable overnight, she has had no further episodes of bleeding, no nausea or vomiting, she is tolerating regular diet, vital signs have been stable, no complaints of chest pain, her pulse ox is 96%, no fever or chills, last hemoglobin yesterday was 11.8. Patient remains on aspirin 81 mg, Brilinta, Coreg, Diovan, and Aldactone. Patient has been up ambulating, tolerating activity well. She is awaiting discharge today, she is awaiting placement of life vest today before going home Objective - Vital Signs Vital signs: Vital Signs Temp 98.3 F 01/16/21 04:00 Pulse 70 01/16/21 08:00 Resp 16 01/16/21 08:00 BP 133/86 01/16/21 08:00 Pulse Ox 96 01/16/21 08:00 Intake & Output 01/15/21 01/16/21 01/16/21 18:59 06:59 18:59 Weight 92.9 kg Other: Voiding Method Toilet Toilet # Voids 3 2 # Bowel Movements 7 - Exam GENERAL EXAM: Alert, pleasant, 56-year-old white female, resting comfortably in bed, in intensive care unit, breathing currently, on room air, pulse ox is 96% comfortable in no apparent distress. HEAD: Normocephalic/atraumatic. EYES: Normal reaction of pupils, equal size. Conjunctiva pink, sclera white. NOSE: Clear with pink turbinates. THROAT: No erythema or exudates. NECK: No masses, no JVD, no thyroid enlargement, no adenopathy. CHEST: No chest wall deformity. Symmetrical expansion. LUNGS: Equal air entry with basilar crackles CVS: Regular rate and rhythm, normal S1 and S2, no gallops, no murmurs, no rubs ABDOMEN: Soft, obese, some tenderness reported across the lower abdomen, No hepatosplenomegaly, normal bowel sounds, no guarding or rigidity. EXTREMITIES: No clubbing, no edema, no cyanosis, 2+ pulses and upper and lower extremities. MUSCULOSKELETAL: Muscle strength and tone normal. SPINE: No scoliosis or deformity SKIN: No rashes CENTRAL NERVOUS SYSTEM: Alert and oriented -3. No focal deficits, tone is normal in all 4 extremities. PSYCHIATRIC: Alert and oriented -3. Appropriate affect. Intact judgment and insight. - Labs CBC & Chem 7: 01/15/21 04:02 01/16/21 03:25 Labs: Abnormal Lab Results - Last 24 Hours (Table) 01/15/21 01/16/21 Range/Units 20:33 03:25 BUN 18 H (7-17) mg/dL POC Glucose (mg/dL) 122 H (75-99) mg/dL Assessment and Plan Plan: Assessment: 1 acute sigmoid elevation myocardial infarction, anterior wall, post cardiac catheterization and stenting of the LAD 2. Currently free of any chest pain and the patient is hemodynamic is stable. 2 acute lower GI bleeding currently under investigation. She is known to have underlying of some other bowel disease/Crohn's disease which has been essentially under adequate control prior to this acute cardiac event. She has been maintained on mesalamine and Levsin. Noted the patient has taken a combination of aspirin, Brilinta andEliquis post cardiac procedures. Today's hemoglobin on 01/13/2021 is stable at 12.6, patient has not required any blood transfusions. Did episodes of bloody bowel movements overnight 3 nausea and emesis, currently under investigation.. Of concern is a previous history of Zofran induced QT prolongation with cardiac arrest. improved. The abdomen and pelvis computed tomography scan showed no acute intra-abdominal process 4 history of Crohn's disease 5 history of prolongation of QT interval secondary to Zofran with subsequent cardiac arrest 6 depression 7 fibromyalgia 8 hypertension 9 ischemic cardiomyopathy EF of 30-35% and possible apical thrombus per the echo report Plan: Patient has remained stable There have been no recurrence of bleeding Currently on oral prednisone Aspirin and Brilinta have been restarted with no recurrence of GI bleeding Vital signs have been stable Awaiting life vest placement Discharge home today I performed a history & physical examination of the patient and discussed their management with my nurse practitioner, Margi Fuentes. I reviewed the nurse practitioner's note and agree with the documented findings and plan of care. Lung sounds are positive for diffuse wheezes throughout the lung pruitt. The findings and the impression was discussed with the patient. I attest to the documentation by the nurse practitioner. Time with Patient: Less than 30
--- NOTE | 2021-01-16 11:37 | P.PN ---
Subjective This is a 55-year-old female with a history of SVT and previous ablation and V. fib arrest after receiving Zofran with a prolonged QT, Chron's disease who presented to the hospital with chest pain on 01/11/21. Patient follows in the office with Dr. Lawrence. She was found to have a STEMI. She underwent cardiac catheterization with Dr. Forrester revealing acutely occluded left anterior descending artery with acute anterior wall myocardial infarction. Patient underwent LAD stenting [address] Bro on 01/11/21. Echocardiogram revealed an EF of 30-35%, anterseptal, lateral, inferior, septal and apex hypokinesis, mild mitral regurgitation, mild tricuspid regurgitation, basophilic defect at the apex suggestive of apical thrombus. Patient was initiated on Eliquis however patient was never given this medication, she did have lower GI bleed and Eliquis was stopped. Her echocardiogram was reviewed and per Dr. Lawrence there was no clear-cut evidence for an apical thrombus and this appears to be trabeculation in the LV. On 01/12/21 patient developed GI bleeding she had an episode of large bowel movement with gross blood and multiple blood clots. She did not receive any blood transfusions. Patient also had episodes of NBNB emesis. GI was consulted, stated that probable etiology of lower GI bleed is related to Crohn's exacerbation and recommended conservative management, patient placed on IV steroids. CT A/P revealed colitis. Patient's GI bleeding and nausea/emesis improved and her aspirin and brilinta was restarted. 01/16/21 Patient examined this morning at the bedside. Patient currently denies chest pain or pressure she denies shortness of breath. She is feeling well this morning. No further emesis or bleeding. Blood pressure 133/86, heart rate 70, afebrile, maintaining saturations on room air. She is currently maintained on aspirin 81 mg daily, atorvastatin 80 mg daily, carvedilol 6.25 mg twice a day, Brilinta 90mg BID, and sprionolactone 50mg daily PHYSICAL EXAM: VITAL SIGNS: Reviewed. GENERAL: Well-developed in no acute distress. NECK: Supple. No JVD or thyromegaly LUNGS: Respirations even and unlabored. Lungs essentially clear to auscultation bilaterally. HEART: Regular rate and rhythm. S1 and S2 heard. EXTREMITIES: Normal range of motion. No clubbing or cyanosis. Peripheral pulse s intact. No lower extremity edema. Right groin soft with no hematoma noted. ASSESSMENT: STEMI, status post LAD stenting 2 Ischemic cardiomyopathy Hypertension Hyperlipidemia Crohn's disease History of SVT with previous ablation History of V. fib arrest after receiving Zofran with prolonged QT PLAN: Continue dual antiplatelet therapy aspirin, brilinta Continue statin, carvedilol and spironolactone Patient will require LifeVest due to EF <35% with risk of sudden cardiac . Case management has been consulted for Brilinta coverage and assistance with Life Vest If patient remaining hemodynamically stable, from a cardiology perspective patient can be discharged once LifeVest is delivered Patient will follow up with Dr. Lawrence as an outpatient Nurse practitioner note has been reviewed by physician. Signing provider agrees with the documented findings, assessment, and plan of care. Objective - Vital Signs Vital signs: Vital Signs Temp 98.3 F 01/16/21 04:00 Pulse 61 01/16/21 06:00 Resp 16 01/16/21 06:00 BP 142/85 01/16/21 06:00 Pulse Ox 97 01/16/21 04:00 Intake & Output 01/15/21 01/15/21 01/16/21 06:59 18:59 06:59 Output Total 0 Balance 0 Weight 93.6 kg 92.9 kg Output: Urine 0 Other: Voiding Method Toilet Toilet Toilet # Voids 0 3 2 # Bowel Movements 7 - Labs CBC & Chem 7: 01/15/21 04:02 01/16/21 03:25 Labs: Abnormal Lab Results - Last 24 Hours (Table) 01/15/21 01/16/21 Range/Units 20:33 03:25 BUN 18 H (7-17) mg/dL POC Glucose (mg/dL) 122 H (75-99) mg/dL
--- NOTE | 2021-01-16 12:42 | P.PN ---
Subjective Progress Note Date: 01/16/21 Principal diagnosis: Crohns disease, GI bleed This is a 55-year-old white female with a past medical history of SVT with previous ablation and V. fib cardiac arrest after receiving Zofran for prolonged QT, fibromyalgia, anxiety, Crohn's disease, and current smoker who presented to the emergency department yesterday evening with complaints of chest pain that was radiating down her left arm and into her back and along her jaw. A STEMI was called on the patient and she went for cardiac catheterization and subsequently underwent LAD stenting 2 yesterday evening. She has a history of Crohn's disease diagnosed approximately 30 years ago and at that time underwent a bowel resection. She has been seeing Day Lala for treatment of her Crohn's disease. She takes Humira weekly, mesalamine, and Levsin for her Crohn's disease. She states her Crohn's has been under control. She states she does have 6-16 bowel movements a day, which are loose, nonbloody. Today is her first episode of having bloody bowel movement. She denies any coffee-ground emesis or hematemesis. States her last colonoscopy was less than 5 years ago at [facility], she was scheduled to have a colonoscopy on December 29 however her mother was in the hospital and she had to cancel. She was given a dose of Brilinta.CT abdomen and pelvis showed sigmoid colon consistent with sequela of long-standing colitis, no evidence of large bowel mass. No evidence of a fistula. Was seen and examined today with no complaints of abdominal pain, nausea, or vomiting. States she still having her normal loose bowel movements that she has anywhere from 4-8 a day, states that she has had no further bleeding or clots. Patient states she is awaiting her LifeVest and then will be discharged home. She was started on oral prednisone 20 mg daily this is day 3. Objective - Vital Signs Vital signs: Vital Signs Temp 98.3 F 01/16/21 04:00 Pulse 70 01/16/21 08:00 Resp 16 01/16/21 08:00 BP 133/86 01/16/21 08:00 Pulse Ox 96 01/16/21 08:00 Intake & Output 01/15/21 01/16/21 01/16/21 18:59 06:59 18:59 Weight 92.9 kg Other: Voiding Method Toilet Toilet # Voids 3 2 # Bowel Movements 7 - Exam General appearance: The patient is alert, oriented, appears in no acute distress. HET: Head is normocephalic and atraumatic. Conjunctiva pink. Sclera anicteric. Neck: Supple without lymphadenopathy. Abdomen: Soft, nontender, nondistended with bowel sounds. No guarding or rigidity. Extremities: Normal skin color and turgor. No pedal edema Skin: No rashes, no jaundice Neurological: No focal deficits. Alert and oriented 3. - Labs CBC & Chem 7: 01/15/21 04:02 01/16/21 03:25 Labs: Abnormal Lab Results - Last 24 Hours (Table) 01/15/21 01/16/21 Range/Units 20:33 03:25 BUN 18 H (7-17) mg/dL POC Glucose (mg/dL) 122 H (75-99) mg/dL Assessment and Plan (1) Crohn's disease Narrative/Plan: 55-year-old who presented to the emergency department yesterday with complaints of chest pain radiating to her back and left arm and along jawline with a past medical history of Crohn's disease, SVT with previous ablation, V. fib arrest after receiving Zofran, anxiety, and fibromyalgia. STEMI was called on the patient, she underwent cardiac catheterization revealing an acutely occluded left anterior descending artery with acute anterior wall myocardial infarction. She then underwent LAD stenting 2. She was started on Brilinta and Eliquis. She did receive 1 dose of Brilinta yesterday evening. This morning she started with nausea and vomiting along with abdominal pain. She was unable to keep down her Brilinta on Eliquis. This afternoon she started having loose bowels with bright red blood and multiple clots. The patient has been maintained on Humira, mesalamine, and Levsin and followed with Day Lala from gastroenterology. Her last colonoscopy was less than 5 years ago at [facility]. She was scheduled to have a repeat colonoscopy on 12/29/2020 however had to cancel that appointment. States her Crohn's disease has been well-controlled, she does have 6-16 loose bowels daily however reports no bleeding. She is denying any coffee- ground emesis or hematemesis. Hemoglobin has been stable at 12.7. At this time there is no plan for any endoscopic evaluation due to recent FL and cardiac stenting. Probable etiology of lower GI bleed is related to Crohn's exacerbation, we will order CT of the abdomen and pelvis and start patient on Solu-Medrol 20 mg every 8 hours. Current Visit: Yes Status: Acute Code(s): K50.90 - CROHN'S DISEASE, UNSPECIFIED, WITHOUT COMPLICATIONS SNOMED Code(s): 05650277 (2) Lower GI bleed Current Visit: Yes Status: Acute Code(s): K92.2 - GASTROINTESTINAL HEMORRHAGE, UNSPECIFIED SNOMED Code(s): 84908851 (3) Nausea and vomiting Current Visit: Yes Status: Acute Code(s): R11.2 - NAUSEA WITH VOMITING, UNSPECIFIED SNOMED Code(s): 04744481 (4) STEMI (ST elevation myocardial infarction) Narrative/Plan: Patient underwent LAD stenting 2 and is being followed closely by cardiology Current Visit: Yes Status: Acute Code(s): I21.3 - ST ELEVATION (STEMI) MYOCARDIAL INFARCTION OF [facility] SITE SNOMED Code(s): 42298592 Plan: 1. Continue diet as tolerated 2. Agree with oral prednisone 20 mg 5 days, followed by 10 mg 7 days 3. Okay for antiplatelet therapy Thank you for this consultation, the patient is cleared by gastroenterology for discharge. We will sign off at this time. Dr. Shelly Forrester I agree with the dictator's note, documented as a scribe by Nicky Mathew.
[2021-01-16] MEDS: methylPREDNISolone SOD SUCCI 40 MG/ML 1 ML VIAL IV SCH (13:04)
[2021-01-16 18:15] VITALS: PULSE 78; RESP 42
[2021-01-19] MEDS ORDERED: predniSONE 10 MG TAB PO SCH (09:00)
== END 2021-01-16 20:25 | disposition home or self-care (01) | DRG 247 ==
LOC: EC 17:44 → 3SCARD 18:35 → 2SICU 20:11
PROVIDERS: ADMIT Hospitalist; ATTEND Hospitalist
PROC: 027035Z Dilation of Coronary Artery, One Artery with Two Drug-eluting Intraluminal Devices, Percutaneous Approach (ICD-10-PCS; principal; 2021-01-11 18:23)
PROC: 4A023N7 Measurement of Cardiac Sampling and Pressure, Left Heart, Percutaneous Approach (ICD-10-PCS; 2021-01-11 18:23)
PROC: B2111ZZ Fluoroscopy of Multiple Coronary Arteries using Low Osmolar Contrast (ICD-10-PCS; 2021-01-11 18:23)
DX: I21.09 ST elevation (STEMI) myocardial infarction involving other coronary artery of anterior wall (principal); I50.22 Chronic systolic (congestive) heart failure; J98.11 Atelectasis; K50.111 Crohn's disease of large intestine with rectal bleeding; I11.0 Hypertensive heart disease with heart failure; Z86.74 Personal history of sudden cardiac arrest; M06.9 Rheumatoid arthritis, unspecified; E78.5 Hyperlipidemia, unspecified; E78.00 Pure hypercholesterolemia, unspecified; F41.8 Other specified anxiety disorders; M79.7 Fibromyalgia; I25.10 Atherosclerotic heart disease of native coronary artery without angina pectoris; I25.5 Ischemic cardiomyopathy; J45.909 Unspecified asthma, uncomplicated; M19.90 Unspecified osteoarthritis, unspecified site; M62.838 Other muscle spasm; M54.9 Dorsalgia, unspecified; E66.9 Obesity, unspecified; Z68.39 Body mass index [BMI] 39.0-39.9, adult; F17.210 Nicotine dependence, cigarettes, uncomplicated; Z71.6 Tobacco abuse counseling; Z79.83 Long term (current) use of bisphosphonates; Z79.899 Other long term (current) drug therapy; Z98.891 History of uterine scar from previous surgery; Z90.49 Acquired absence of other specified parts of digestive tract; Z86.79 Personal history of other diseases of the circulatory system; Z87.19 Personal history of other diseases of the digestive system; Z87.39 Personal history of other diseases of the musculoskeletal system and connective tissue; Z98.890 Other specified postprocedural states; Z88.8 Allergy status to other drugs, medicaments and biological substances; Z82.49 Family history of ischemic heart disease and other diseases of the circulatory system
CPT/HCPCS: 36415; 71045; 74177; 80048; 80053; 83735; 84484; 85025; 85027; 85610; 85652; 85730; 86140; 93005; 93306; 93458; 93975; 99291

== ENCOUNTER 2021-02-11 01:31 | Inpatient (IN) | payer OTHER ==
--- NOTE | 2021-02-11 01:55 | ED ---
Syncope HPI - General Stated Complaint: syncope Time Seen by Provider: 02/11/21 01:34 - Related Data Home Medications Medication Instructions Recorded Confirmed Adalimumab [Humira(Cf) Pen] 40 mg SQ MO 01/11/21 01/11/21 Alendronate Sodium 70 mg PO FR 01/11/21 01/11/21 Atorvastatin [Lipitor] 80 mg PO DAILY 01/11/21 01/11/21 Baclofen [Lioresal] 10 mg PO BID 01/11/21 01/11/21 Diphenoxylate HCl/Atropine 1 tab PO QID PRN 01/11/21 01/11/21 [Lomotil 2.5-0.025 mg Tablet] Ergocalciferol [Vitamin D2 (1250 1,250 mcg PO STILL 01/11/21 01/11/21 Mcg = 57827 Iu)] Famotidine [Pepcid] 40 mg PO DAILY 01/11/21 01/11/21 Hyoscyamine Sulfate [Levsin] 0.125 mg PO Q4H PRN 01/11/21 01/11/21 Magnesium Oxide 400 mg PO DAILY 01/11/21 01/11/21 Mesalamine [Mesalamine ER] 0.375 gm PO QID 01/11/21 01/11/21 Prochlorperazine [Compazine] 10 mg PO Q8H PRN 01/11/21 01/11/21 Promethazine Suppository 25 mg RECTAL BID PRN 01/11/21 01/11/21 [Phenergan] Spironolactone [Aldactone] 25 mg PO DAILY 01/11/21 01/11/21 Triamcinolone 0.5% Cream [Kenalog 1 applic TOPICAL QID PRN 01/11/21 01/11/21 0.5% Cream] buPROPion HCL [buPROPion HCL SR] 150 mg PO BID 01/11/21 01/12/21 busPIRone HCL 15 mg PO BID 01/11/21 01/12/21 Previous Rx's Medication Instructions Recorded Aspirin 81 mg PO DAILY 30 Days #30 chew 01/16/21 Ticagrelor [Brilinta] 90 mg PO BID 30 Days #60 tab 01/16/21 Valsartan [Diovan] 80 mg PO BID 30 Days #60 tab 08/23/21 carvediloL [Coreg] 6.25 mg PO BID-W/MEALS 30 Days #60 01/16/21 tab predniSONE 10 mg PO DAILY 7 Days #7 tab 01/16/21 predniSONE [Deltasone] 20 mg PO DAILY 5 Days #5 tab 01/16/21 Allergies Allergy/AdvReac Type Severity Reaction Status Date / Time ondansetron [From Zofran] Allergy Abdominal Verified 02/11/21 01:58 Pain Review of Systems ROS Statement: Those systems with pertinent positive or pertinent negative responses have been documented in the HPI. ROS Other: All systems not noted in ROS Statement are negative. Past Medical History Past Medical History: Fibromyalgia, Hypertension Additional Past Medical History / Comment(s): Crohns, prolonged qt, anxiety, depression, arthritis, History of Any Multi-Drug Resistant Organisms: None Reported Past Surgical History: Appendectomy, Cardiac Ablation, Section, Heart Catheterization Additional Past Surgical History / Comment(s): heart cath 2009 approx. no in terventions done, carpal tunnel surgery Past Anesthesia/Blood Transfusion Reactions: No Reported Reaction Past Psychological History: Anxiety, Depression Smoking Status: Current some day smoker Past Alcohol Use History: None Reported Past Drug Use History: None Reported Course Vital Signs 02/11/21 02/11/21 02/11/21 01:49 02:34 02:47 Temperature 98.2 F Pulse Rate 73 73 Pulse Rate [ 73 [employer] ] Respiratory 18 18 Rate Blood Pressure 97/51 97/57 O2 Sat by Pulse 97 97 Oximetry EKG Findings - EKG Comments: EKG Findings:: EKG is sinus rhythm 78 MD 160 QRS 78 QTc 517 Disposition Clinical Impression: Nausea and vomiting, Syncope, Coronavirus infection Disposition: ADMITTED IP TO THIS HOSP Condition: Undetermined Is patient prescribed a controlled substance at d/c from ED?: No
[2021-02-11] MEDS ORDERED: NALOXONE 0.4 MG/ML 1 ML VIAL IV PRN (02:36)
[2021-02-11] MEDS ORDERED: NITROGLYCERIN SL TABS 0.4 MG TAB SUBLINGUAL PRN (02:36)
[2021-02-11] MEDS ORDERED: MORPHINE SULFATE 4 MG/ML SYRINGE IV PRN (02:36)
[2021-02-11] MEDS ORDERED: SODIUM CHLORIDE 0.9% 1,000 ML IV ONE (02:52)
[2021-02-11] MEDS ORDERED: SODIUM CHLORIDE 0.9% 1,000 ML IV SCH (03:00)
[2021-02-11] MEDS: SODIUM CHLORIDE 0.9% 1,000 ML IV SCH ×3 (05:54→22:50)
[2021-02-11] MEDS ORDERED: PANTOPRAZOLE 40 MG/10 ML VIAL IV SCH (09:00)
[2021-02-11] MEDS ORDERED: PROMETHAZINE SUPPOSITORY 25 MG SUPP RECTAL PRN (09:54)
[2021-02-11] MEDS ORDERED: HYOSCYAMINE SULFATE 0.125 MG TAB PO PRN (09:54)
[2021-02-11] MEDS ORDERED: PROCHLORPERAZINE 10 MG TAB PO PRN (09:54)
[2021-02-11] MEDS ORDERED: DIPHENOX-ATROP 2.5-0.025 MG 1 EACH TAB PO PRN (09:54)
[2021-02-11] MEDS ORDERED: VALSARTAN 80 MG TAB PO SCH (11:00)
[2021-02-11] MEDS: SPIRONOLACTONE 25 MG TAB PO SCH (11:28)
[2021-02-11] MEDS: BACLOFEN 10 MG TAB PO SCH ×2 (11:28→20:15)
[2021-02-11] MEDS: MAGNESIUM OXIDE 400 MG TAB PO SCH (11:28)
[2021-02-11] MEDS: ATORVASTATIN 80 MG TAB PO SCH (11:28)
[2021-02-11] MEDS: TICAGRELOR 90 MG TAB PO SCH ×2 (11:29→20:15)
[2021-02-11] MEDS: carvediloL 3.125 MG TAB PO SCH ×2 (11:29→17:25)
[2021-02-11] MEDS: busPIRone HCl 10 MG TAB PO SCH ×2 (11:30→20:15)
[2021-02-11] MEDS: buPROPion SR 150 MG TABLET.ER PO SCH ×2 (11:30→20:15)
[2021-02-11] MEDS: FAMOTIDINE 20 MG TAB PO SCH (11:40)
[2021-02-11 12:21] LABS: African American GFR (CKD) 86 (>60 ml/min/1.73 sqM); Anion Gap 5 mmol/L; Blood Urea Nitrogen 9 mg/dL (7-17); Calcium 8.3 mg/dL (8.4-10.2); Carbon Dioxide 24 mmol/L (22-30); Chloride 113 mmol/L (98-107); Glucose 90 mg/dL (74-99); Non-African American GFR(CKD) 75 (>60 ml/min/1.73 sqM); Potassium 3.6 mmol/L (3.5-5.1); Sodium 142 mmol/L (137-145)
[2021-02-11 12:34] LABS: Partial Thromboplastin Time 31.8 sec (22.0-30.0); Prothrombin Time 10.3 sec (9.0-12.0)
[2021-02-11] MEDS ORDERED: HEPARIN SODIUM 1,000 UN/ML (10ML VL) IV PRN (12:51)
[2021-02-11] MEDS: HEPARIN SOD,PORK IN 0.45% NACL 25,000 UNIT in 0.45% NACL 1 250ML.BAG IV SCH (14:01)
[2021-02-11] MEDS: SACUBITRIL/VALSARTAN 24 MG-26 MG TABLET PO SCH ×2 (14:02→20:15)
[2021-02-11] MEDS: MESALAMINE 0.375 GM PO SCH ×3 (14:02→22:50)
--- NOTE | 2021-02-11 14:57 | XR ---
EXAMINATION TYPE: XR chest 1V portable DATE OF EXAM: 02/11/2021 COMPARISON: 01/11/2021 HISTORY: Cough TECHNIQUE: Bárbara view FINDINGS: There is no heart failure nor confluent pneumonic infiltrate. Costophrenic angles are clear . There are chest leads. Bony thorax is intact. IMPRESSION: No active cardiopulmonary disease. No adverse change.
--- NOTE | 2021-02-11 16:12 | P.HPIM ---
History of Present Illness H&P Date: 02/11/21 Chief Complaint: Past out History of presenting complaint: This is a pleasant 55-year-old patient of Dr. Deleon. Follows with Dr. Nils Lawrence from cardiology for arrhythmia's. She's had a prior cardiac ablation. Chronic stable medical conditions include fibromyalgia, hypertension, Crohn's, long QT, anxiety depression, arthritis. Has been smoking on and off recently. Patient was admitted to the hospital on January 11 and discharged on January 16. Admitted with acute ST elevation [place]. 2 stents/PTCa proximally occluded LAD. Also had a flareup of Crohn's colitis. Treated with steroids. 2-D echo showed EF of 30-35% Yesterday most of the day she was not feeling right. [place] diet. Been dizzy and lightheaded. Went to the bathroom fell forward. Bumped her head against the wall. Was passed out for about 10 minutes. No tongue biting or incontinence. She was initially taken to [facility] from where she was transferred here. She was positive for COVID-19 with a rapid test. Patient is unvaccinated. Denies any fever or chills. No cough. No chest pain palpitation. Review of systems: GEN.: Tired EYES: None HEENT: None NECK: None RESPIRATORY: None CARDIOVASCULAR: None GASTROINTESTINAL: None GENITOURINARY: None MUSCULOSKELETAL: Joint pains LYMPHATICS: None HEMATOLOGICAL: None PSYCHIATRY: None NEUROLOGICAL: None Past medical history to include: Fibromyalgia, hypertension, Crohn's disease, , anxiety depression, osteoarthritis, non-ST elevation on 01/11/2021 with 2 stents to LAD, CHF EF 30- 35% Social history: Lives with 2 daughters. On disability. Smoking off and on. No alcohol. Family history: Reviewed, noncontributory to presentation Physical examination: VITAL SIGNS: 98.2, 73, 18, 97/51, 97% room air GENERAL: [BMI 37.5, laying in bed, tired EYES: Pupils equal. Conjunctiva normal. HEENT: External appearance of nose and ears normal, oral cavity grossly normal. NECK: JVD not raised; masses not palpable. HEART: First and second heart sounds are normal; no edema. LUNGS: Respiratory rate normal; decreased breath sound. ABDOMEN: Soft, nontender, liver spleen not palpable, no masses palpable. PSYCH: Alert and oriented x3; mood and affect normal. NEUROLOGICAL: Cranial nerves grossly intact; no facial asymmetry, power and sensation grossly intact. LYMPHATICS: No lymph nodes palpable in the axilla and neck INVESTIGATIONS, reviewed in the clinical context: Potassium 3.6 creatinine 0.8 date Troponin I 0.029, 0.037, 0.035 EKG tracing personally reviewed by me-normal sinus rhythm, poor R-wave progression, flipped T waves in anterior leads Chest x-ray film personally reviewed by me-no obvious infiltrate Assessment and plan: -This patient who recently had a ST elevation [place] with 2 stents to LAD, was not feeling well yesterday. Tired. No fever no chills. Patient passed out in the bathroom. This could be from underlying arrhythmia given ischemic cardiomyopathy. Also patient could've vasovagal from COVID-19 which is positive on the rapid test. Check orthostatic Telemetry -COVID-19, otherwise asymptomatic. Positive on the rapid test Recheck COVID 19 PCR. Isolation -Acute ST elevation myocardial infarction on. January 11/2021 Proximal LAD PTCA/ 2 stents. Aspirin, Lipitor, Brilinta -Chronic congestive heart failure from systolic dysfunction EF 30-35%, ischemic artery myopathy Aldactone 25 mg daily. Coreg 4.6875 mg twice a day -Obesity BMI 37.5 Dietitian. Weight loss measures -Essential hypertension . Coreg 4.6875 mg twice a day. Valsartan 80 mg twice a day -Chronic Crohn's disease, Mesalamine 0.375 g by mouth 4 times a day, Humira -Muscle spasm Baclofen 10 mg twice a day -Hyperlipidemia Lipitor 80 mg daily -Anxiety depression, controlled BuSpar 50 mg twice a day, long acting 150 mg twice a day COVID 19 PCR ordered. Home medications resumed. On IV heparin per cardiology. Patient's had no chest pain. Telemetry. Care was discussed with the patient. Questions answered. DC IV fluids. Past Medical History Past Medical History: Coronary Artery Disease (CAD), Fibromyalgia, Hypertension, Myocardial Infarction ([place]) Additional Past Medical History / Comment(s): Crohns, prolonged qt, anxiety, depression, arthritis, Last Myocardial Infarction Date:: 01/11/21 History of Any Multi-Drug Resistant Organisms: None Reported Past Surgical History: Appendectomy, Cardiac Ablation, Section, Heart Catheterization Additional Past Surgical History / Comment(s): heart cath 2009 approx. no i nterventions done, carpal tunnel surgery heart cath with stents 2020 Past Anesthesia/Blood Transfusion Reactions: No Reported Reaction Past Psychological History: Anxiety, Depression Smoking Status: Former smoker Past Alcohol Use History: None Reported Past Drug Use History: None Reported - Past Family History Mother Family Medical History: Hypertension Father Family Medical History: Chest Pain / Angina, Diabetes Mellitus Additional Family Medical History / Comment(s): crohns Medications and Allergies Home Medications Medication Instructions Recorded Confirmed Type Adalimumab [Humira(Cf) Pen] 40 mg SQ MO 01/11/21 02/11/21 History Alendronate Sodium 70 mg PO FR 01/11/21 02/11/21 History Atorvastatin [Lipitor] 80 mg PO DAILY 01/11/21 02/11/21 History Baclofen [Lioresal] 10 mg PO BID 01/11/21 02/11/21 History Diphenoxylate HCl/Atropine 1 tab PO QID PRN 01/11/21 02/11/21 History [Lomotil 2.5-0.025 mg Tablet] Ergocalciferol [Vitamin D2 (1250 1,250 mcg PO STILL 01/11/21 02/11/21 History Mcg = 30321 Iu)] Famotidine [Pepcid] 40 mg PO DAILY 01/11/21 02/11/21 History Hyoscyamine Sulfate [Levsin] 0.125 mg PO Q4H PRN 01/11/21 02/11/21 History Magnesium Oxide 400 mg PO DAILY 01/11/21 02/11/21 History Mesalamine [Mesalamine ER] 0.375 gm PO QID 01/11/21 02/11/21 History Prochlorperazine [Compazine] 10 mg PO Q8H PRN 01/11/21 02/11/21 History Promethazine Suppository 25 mg RECTAL BID PRN 01/11/21 02/11/21 History [Phenergan] Spironolactone [Aldactone] 25 mg PO DAILY 01/11/21 02/11/21 History Triamcinolone 0.5% Cream [Kenalog 1 applic TOPICAL QID PRN 01/11/21 02/11/21 History 0.5% Cream] buPROPion HCL [buPROPion HCL SR] 150 mg PO BID 01/11/21 02/11/21 History busPIRone HCL 15 mg PO BID 01/11/21 02/11/21 History Aspirin 81 mg PO DAILY 30 Days #30 chew 01/16/21 02/11/21 Rx Ticagrelor [Brilinta] 90 mg PO BID 30 Days #60 tab 01/16/21 02/11/21 Rx Valsartan [Diovan] 80 mg PO BID 30 Days #60 tab 01/16/21 02/11/21 Rx carvediloL [Coreg] 4.6875 mg PO BID-W/MEALS 02/11/21 02/11/21 History Allergies Allergy/AdvReac Type Severity Reaction Status Date / Time ondansetron [From Zofran] Allergy Abdominal Verified 02/11/21 08:21 Pain Physical Exam Vitals: Vital Signs Temp Pulse Pulse Pulse Resp BP BP 02/11/21 08:15 97.8 F 79 18 115/76 02/11/21 07:30 97.8 F 73 18 123/61 02/11/21 05:30 73 18 123/61 02/11/21 03:30 73 18 101/60 02/11/21 02:47 73 18 97/57 02/11/21 02:34 73 02/11/21 01:49 98.2 F 73 18 97/51 Pulse Ox 02/11/21 08:15 96 02/11/21 07:30 96 02/11/21 05:30 100 02/11/21 03:30 97 02/11/21 02:47 97 02/11/21 02:34 02/11/21 01:49 97 Intake and Output 02/10/21 02/11/21 02/11/21 22:59 06:59 14:59 Other: Weight 92.986 kg 92.986 kg Results CBC & Chem 7: 02/11/21 11:37 Labs: Abnormal Lab Results - Last 24 Hours (Table) 02/11/21 02/11/21 Range/Units 07:46 11:37 Chloride 113 H (98-107) mmol/L Calcium 8.3 L (8.4-10.2) mg/dL Troponin I 0.037 H* (0.000-0.034) ng/mL Thrombosis Risk Factor Assmnt - Choose All That Apply Any of the Below Risk Factors Present?: Yes Each Factor Represents 1 point: Acute [place], Age 41-60 years Other Risk Factors: No Other congenital or acquired thrombophilia - If yes, enter type in comment: No Thrombosis Risk Factor Assessment Total Risk Factor Score: 2 Thrombosis Risk Factor Assessment Level: Low Risk
--- NOTE | 2021-02-11 22:56 | P.CRDCN ---
History of Present Illness History of present illness: HISTORY OF PRESENTING ILLNESS Patient is a pleasant 55-year-old female with history of prolonged QT interval, Crohn's disease, depression, hypertension, fibromyalgia, some form of ablation, syncope, coronary artery disease status post PCI LAD proximally 3 weeks ago with resultant ischemic cardiomyopathy with ejection fraction 30-35%. Patient had a hospitalization where she noted chest pain radiating to her back and was found have STEMI and underwent PCI of her LAD. She states she had been feeling fairly well going home. She was placed on a LifeVest which she has been wearing. Adrienne maharaj states that overall she had been feeling fairly well yesterday and then was walking down the boss and had fairly sudden onset of loss of consciousness. She denies any preceding chest pain or pressure. She admits she has passed out 3 times, once a few years back and another time she states occurred around the time of her [place] one month ago. She initially was worked up for prolonged QT interval and had worn a LifeVest for proximally 6 months at that time. She follows with Dr. Lawrence. She was incidentally found to have COVID-19 on her first nasal swab. She did have repeat swab as she has been asymptomatic, no fevers, chills, cough or shortness breath. Per patient her LifeVest did not go off. She initially was at [facility]. Blood work at the [place] shows initial troponin 0.029, 0.037, 0.03, 0.038. Sodium 142, potassium 3.6, creatinine 0.8, d-dimer 0.49. EKG shows normal sinus rhythm, Q waves V1 and V2, biphasic T-wave V2 as well as T-wave inversion 1 and aVL and prolonged QT. REVIEW OF SYSTEMS At the time of my exam: CONSTITUTIONAL: Denies fever or chills. CARDIOVASCULAR: Denies chest pain, shortness of breath, orthopnea, PND or palpitations. RESPIRATORY: Denies cough. GASTROINTESTINAL: Denies abdominal pain, diarrhea, constipation, nausea or vomiting. MUSCULOSKELETAL: Denies myalgias. NEUROLOGIC: Denies numbness, tingling or weakness. ENDOCRINE: Denies fatigue, weight change, polydipsia or polyurina. GENITOURINARY: Denies burning, hematuria or urgency with micturation. HEMATOLOGIC: Denies history of anemia or bleeding. PHYSICAL EXAMINATION Vital signs reviewed. CONSTITUTIONAL: No apparent distress. HEENT: Head is normocephalic. Pupils are equal, round. Sclerae anicteric. Mucous membranes of the mouth are moist. No JVD. No carotid bruit. CHEST EXAMINATION: Lungs are clear to auscultation. No chest wall tenderness is noted on palpation or with deep breathing. HEART EXAMINATION: Regular rate and rhythm. S1, S2 heard. No murmurs, gallops or rub. ABDOMEN: Soft, nontender. Positive bowel sounds. EXTREMITIES: 2+ peripheral pulses, no lower extremity edema and no calf tenderness. NEUROLOGIC EXAMINATION: Patient is awake, alert and oriented x3. ASSESSMENT 1. Syncope 2. Coronary artery disease status post STEMI with PCI LAD one month ago 3. Abnormal EKG concerning for Wellens sign however likely related to prior STEMI one month ago 4. Prolonged QT 5. Hypertension 6. Hyperlipidemia 7. Ischemic cardiopathy ejection fraction 30-35% 8. COVID-19 infection, appears asymptomatic 9. Tobacco abuse 10. NSTEMI PLAN Patient with syncope without much prodrome and has had syncope in the past. Patient remains fairly asymptomatic and is not complaining of any angina-type symptoms like she had previously. EKG does appear abnormal and concerning for Wellens however EKG at the end of previous heart catheterization case appeared to have some mild residual ST elevations and may be related to prior STEMI. She was wearing LifeVest which did not go off. There is always a consideration of LifeVest failure however less likely VT or V. fib if LifeVest did not go off. Patient does however have significant risk factors with prolonged QT as well as ischemic cardiomyopathy with ejection fraction 30-35%. We will check repeat echocardiogram to evaluate left ventricular function. We will consult electrophysiology for possible EP study or patient may need AICD. Unclear significance of COVID-19. Further recommendations to follow. Past Medical History Past Medical History: Coronary Artery Disease (CAD), Fibromyalgia, Hypertension, Myocardial Infarction ([place]) Additional Past Medical History / Comment(s): Crohns, prolonged qt, anxiety, depression, arthritis, Last Myocardial Infarction Date:: 01/11/21 History of Any Multi-Drug Resistant Organisms: None Reported Past Surgical History: Appendectomy, Cardiac Ablation, Section, Heart Catheterization Additional Past Surgical History / Comment(s): heart cath 2009 approx. no interventions done, carpal tunnel surgery heart cath with stents 2020 Past Anesthesia/Blood Transfusion Reactions: No Reported Reaction Past Psychological History: Anxiety, Depression Smoking Status: Former smoker Past Alcohol Use History: None Reported Past Drug Use History: None Reported - Past Family History Mother Family Medical History: Hypertension Father Family Medical History: Chest Pain / Angina, Diabetes Mellitus Additional Family Medical History / Comment(s): crohns Medications and Allergies Home Medications Medication Instructions Recorded Confirmed Type Adalimumab [Humira(Cf) Pen] 40 mg SQ MO 01/11/21 02/11/21 History Alendronate Sodium 70 mg PO FR 01/11/21 02/11/21 History Atorvastatin [Lipitor] 80 mg PO DAILY 01/11/21 02/11/21 History Baclofen [Lioresal] 10 mg PO BID 01/11/21 02/11/21 History Diphenoxylate HCl/Atropine 1 tab PO QID PRN 01/11/21 02/11/21 History [Lomotil 2.5-0.025 mg Tablet] Ergocalciferol [Vitamin D2 (1250 1,250 mcg PO STILL 01/11/21 02/11/21 History Mcg = 16408 Iu)] Famotidine [Pepcid] 40 mg PO DAILY 01/11/21 02/11/21 History Hyoscyamine Sulfate [Levsin] 0.125 mg PO Q4H PRN 01/11/21 02/11/21 History Magnesium Oxide 400 mg PO DAILY 01/11/21 02/11/21 History Mesalamine [Mesalamine ER] 0.375 gm PO QID 01/11/21 02/11/21 History Prochlorperazine [Compazine] 10 mg PO Q8H PRN 01/11/21 02/11/21 History Promethazine Suppository 25 mg RECTAL BID PRN 01/11/21 02/11/21 History [Phenergan] Spironolactone [Aldactone] 25 mg PO DAILY 01/11/21 02/11/21 History Triamcinolone 0.5% Cream [Kenalog 1 applic TOPICAL QID PRN 01/11/21 02/11/21 History 0.5% Cream] buPROPion HCL [buPROPion HCL SR] 150 mg PO BID 01/11/21 02/11/21 History busPIRone HCL 15 mg PO BID 01/11/21 02/11/21 History Aspirin 81 mg PO DAILY 30 Days #30 chew 01/16/21 02/11/21 Rx Ticagrelor [Brilinta] 90 mg PO BID 30 Days #60 tab 01/16/21 02/11/21 Rx Valsartan [Diovan] 80 mg PO BID 30 Days #60 tab 01/16/21 02/11/21 Rx carvediloL [Coreg] 4.6875 mg PO BID-W/MEALS 02/11/21 02/11/21 History Allergies Allergy/AdvReac Type Severity Reaction Status Date / Time ondansetron [From Zofran] Allergy Abdominal Verified 02/11/21 08:21 Pain Physical Exam Vitals: Vital Signs Temp Pulse Pulse Pulse Resp BP BP 02/11/21 20:00 73 18 02/11/21 19:47 98.1 F 83 18 162/83 02/11/21 14:45 98.1 F 76 18 117/76 02/11/21 08:15 97.8 F 79 18 115/76 02/11/21 07:30 97.8 F 73 18 123/61 02/11/21 05:30 73 18 123/61 02/11/21 03:30 73 18 101/60 02/11/21 02:47 73 18 97/57 02/11/21 02:34 73 02/11/21 01:49 98.2 F 73 18 97/51 Pulse Ox 02/11/21 20:00 02/11/21 19:47 97 02/11/21 14:45 98 02/11/21 08:15 96 02/11/21 07:30 96 02/11/21 05:30 100 02/11/21 03:30 97 02/11/21 02:47 97 02/11/21 02:34 02/11/21 01:49 97 Intake and Output 02/11/21 02/11/21 02/11/21 06:59 14:59 22:59 Other: # Voids 3 1 Weight 92.986 kg 92.986 kg Results 02/11/21 11:37 Cardiac Enzymes 02/11/21 02/11/21 02/11/21 Range/Units 04:10 07:46 11:37 Troponin I 0.029 0.037 H* 0.035 H* (0.000-0.034) ng/mL 02/11/21 Range/Units 15:20 Troponin I 0.038 H* (0.000-0.034) ng/mL Coagulation 02/11/21 02/11/21 Range/Units 11:37 20:31 PT 10.3 (9.0-12.0) sec APTT 31.8 H 31.5 H (22.0-30.0) sec Comprehensive Metabolic Panel 02/11/21 Range/Units 11:37 Sodium 142 (137-145) mmol/L Potassium 3.6 (3.5-5.1) mmol/L Chloride 113 H (98-107) mmol/L Carbon Dioxide 24 (22-30) mmol/L BUN 9 (7-17) mg/dL Creatinine 0.88 (0.52-1.04) mg/dL Glucose 90 (74-99) mg/dL Calcium 8.3 L (8.4-10.2) mg/dL Current Medications Generic Name Dose Route Start Last Admin Trade Name Freq PRN Reason Stop Dose Admin Aspirin 81 mg 02/12/21 09:00 Aspirin 81 Mg PO DAILY FRANCHESCA Atorvastatin Calcium 80 mg 02/11/21 11:00 02/11/21 11:28 Atorvastatin 80 Mg Tab PO 80 mg DAILY FRANCHESCA Administration Baclofen 10 mg 02/11/21 11:00 02/11/21 20:15 Baclofen 10 Mg Tab PO 10 mg BID FRANCHESCA Administration Bupropion HCl 150 mg 02/11/21 11:00 02/11/21 20:15 Bupropion Sr 150 Mg Tablet.Er PO 150 mg BID FRANCHESCA Administration Buspirone HCl 15 mg 02/11/21 11:00 02/11/21 20:15 Buspirone Hcl 10 Mg Tab PO 15 mg BID FRANCHESCA Administration Carvedilol 4.6875 mg 02/11/21 11:00 02/11/21 17:25 Carvedilol 3.125 Mg Tab PO 4.6875 mg BID-W/MEALS FRANCHESCA Administration Diphenoxylate HCl/Atropine 1 each 02/11/21 09:54 Diphenox-Atrop 2.5-0.025 Mg 1 Each Tab PO QID PRN Diarrhea Ergocalciferol 1,250 mcg 02/12/21 10:00 Ergocalciferol 1,250 Mcg (50,000 Iu) Capsule PO STILL FRANCHESCA Famotidine 40 mg 02/11/21 11:00 02/11/21 11:40 Famotidine 20 Mg Tab PO Not Given DAILY FRANCHESCA Heparin Sodium (Porcine) 0 unit 02/11/21 12:51 Heparin Sodium 1,000 Un/Ml (10ml Vl) IV PER PROTOCOL PRN Low PTT Protocol Hyoscyamine 0.125 mg 02/11/21 09:54 Hyoscyamine Sulfate 0.125 Mg Tab PO Q4H PRN ibs Sodium Chloride 1,000 mls @ 10 mls/hr 02/11/21 02:45 02/11/21 14:01 Saline 0.9% IV 100 mls/hr .Q24H FRANCHESCA Administration Heparin Sodium/Sodium Chloride 250 mls @ 9.95 mls/hr 02/11/21 13:00 02/11/21 14:01 25,000 unit/ Sodium Chloride IV Not Given .Q24H FRANCHESCA Protocol 10.7 UNITS/KG/HR Magnesium Oxide 400 mg 02/11/21 11:00 02/11/21 11:28 Magnesium Oxide 400 Mg Tab PO 400 mg DAILY FRANCHESCA Administration Naloxone HCl 0.2 mg 02/11/21 02:36 Naloxone 0.4 Mg/Ml 1 Ml Vial IV Q2M PRN Opioid Reversal Nitroglycerin 0.4 mg 02/11/21 02:36 Nitroglycerin Sl Tabs 0.4 Mg Tab SUBLINGUAL Q5M PRN Chest Pain Non-Formulary Medication 40 mg 02/13/21 09:54 Adalimumab [Humira(Cf) Pen] SQ MO FRANCHESCA Non-Formulary Medication 70 mg 02/17/21 09:54 Alendronate Sodium [Alendronate Sodium] PO FR FRANCHESCA Non-Formulary Medication 0.375 gm 02/11/21 13:00 02/11/21 18:24 Mesalamine [Mesalamine Er] PO Not Given QID FRANCHESCA Prochlorperazine Maleate 10 mg 02/11/21 09:54 Prochlorperazine 10 Mg Tab PO Q8H PRN Nausea Promethazine HCl 25 mg 02/11/21 09:54 Promethazine Suppository 25 Mg Supp RECTAL BID PRN Nausea Sacubitril/Valsartan 1 each 02/11/21 12:30 02/11/21 20:15 Sacubitril/Valsartan 24 Mg-26 Mg Tablet PO 1 each BID FRANCHESCA Administration Spironolactone 25 mg 09/18/21 11:00 02/11/21 11:28 Spironolactone 25 Mg Tab PO 25 mg DAILY FRANCHESCA Administration Ticagrelor 90 mg 02/11/21 11:00 02/11/21 20:15 Ticagrelor 90 Mg Tab PO 90 mg BID FRANCHESCA Administration Intake and Output 02/11/21 02/11/21 02/11/21 06:59 14:59 22:59 Other: # Voids 3 1 Weight 92.986 kg 92.986 kg Patient Weight 02/12/21 06:59 Weight 92.986 kg 02/11/21 11:37
[2021-02-12] MEDS: busPIRone HCl 10 MG TAB PO SCH ×2 (08:11→19:45)
[2021-02-12] MEDS: SACUBITRIL/VALSARTAN 24 MG-26 MG TABLET PO SCH ×2 (08:12→19:46)
[2021-02-12] MEDS: carvediloL 3.125 MG TAB PO SCH ×2 (08:12→16:40)
[2021-02-12] MEDS: buPROPion SR 150 MG TABLET.ER PO SCH ×2 (08:14→19:45)
[2021-02-12] MEDS: ASPIRIN 81 MG PO SCH (08:14)
[2021-02-12] MEDS: MAGNESIUM OXIDE 400 MG TAB PO SCH (08:14)
[2021-02-12] MEDS: TICAGRELOR 90 MG TAB PO SCH ×2 (08:14→19:46)
[2021-02-12] MEDS: BACLOFEN 10 MG TAB PO SCH ×2 (08:14→19:45)
[2021-02-12] MEDS: SPIRONOLACTONE 25 MG TAB PO SCH (08:14)
[2021-02-12] MEDS: ATORVASTATIN 80 MG TAB PO SCH (08:14)
[2021-02-12] MEDS: FAMOTIDINE 20 MG TAB PO SCH (08:21)
[2021-02-12] MEDS: MESALAMINE 0.375 GM PO SCH ×4 (08:22→19:46)
[2021-02-12] MEDS ORDERED: ASPIRIN 325 MG TAB PO SCH (09:00)
[2021-02-12] MEDS ORDERED: ERGOCALCIFEROL 1,250 MCG (50,000 IU) CAPSULE PO SCH (10:00)
--- NOTE | 2021-02-12 10:35 | P.PN ---
Subjective HISTORY OF PRESENTING ILLNESS Patient is a pleasant 55-year-old female with history of prolonged QT interval, Crohn's disease, depression, hypertension, fibromyalgia, some form of ablation, syncope, coronary artery disease status post PCI LAD proximally 3 weeks ago with resultant ischemic cardiomyopathy with ejection fraction 30-35%. Patient had a hospitalization where she noted chest pain radiating to her back and was found have STEMI and underwent PCI of her LAD. She states she had been feeling fairly well going home. She was placed on a LifeVest which she has been wearing. Patient states that overall she had been feeling fairly well yesterday and then was walking down the boss and had fairly sudden onset of loss of consciousness. She denies any preceding chest pain or pressure. She admits she has passed out 3 times, once a few years back and another time she states occurred around the time of her [place] one month ago. She initially was worked up for prolonged QT interval and had worn a LifeVest for proximally 6 months at that time. She follows with Dr. Lawrence. She was incidentally found to have COVID-19 on her first nasal swab. She did have repeat swab as she has been asymptomatic, no fevers, chills, cough or shortness breath. Per patient her LifeVest did not go off. She initially was at [facility]. Blood work at the [place] shows initial troponin 0.029, 0.037, 0.03, 0.038. Sodium 142, potassium 3.6, cr eatinine 0.8, d-dimer 0.49. EKG shows normal sinus rhythm, Q waves V1 and V2, biphasic T-wave V2 as well as T-wave inversion 1 and aVL and prolonged QT. 19 Seen and examined. Patient denies any chest pain or pressure. She had a brief run of SVT overnight however no further ectopy. She admits today that she was in fact on the toilet when she passed out, sitting down and having a bowel movement. She admits she is not straining much and normally has loose stool. She was however feeling somewhat lightheaded before going to the bathroom. PHYSICAL EXAMINATION Vital signs reviewed. CONSTITUTIONAL: No apparent distress. HEENT: Head is normocephalic. Pupils are equal, round. Sclerae anicteric. Mucous membranes of the mouth are moist. No JVD. No carotid bruit. CHEST EXAMINATION: Lungs are clear to auscultation. No chest wall tenderness is noted on palpation or with deep breathing. HEART EXAMINATION: Regular rate and rhythm. S1, S2 heard. No murmurs, gallops or rub. ABDOMEN: Soft, nontender. Positive bowel sounds. EXTREMITIES: 2+ peripheral pulses, no lower extremity edema and no calf tenderness. NEUROLOGIC EXAMINATION: Patient is awake, alert and oriented x3. ASSESSMENT 1. Syncope 2. Coronary artery disease status post STEMI with PCI LAD one month ago 3. Abnormal EKG concerning for Wellens sign however likely related to prior STEMI one month ago 4. Prolonged QT 5. Hypertension 6. Hyperlipidemia 7. Ischemic cardiopathy ejection fraction 30-35% 8. COVID-19 infection, appears asymptomatic 9. Tobacco abuse 10. NSTEMI PLAN Patient with numerous episodes of syncope in the past however prior workup had been unremarkable. Now however she has significant risk factors with continued prolonged QT however additional ischemic cardiomyopathy with ejection fraction 30-35%. This may be a vasovagal episode which was exacerbated by fairly asymptomatic COVID-19 infection however given the additional risk factors we will consult electrophysiology for further recommendations. She was wearing her LifeVest when this occurred which did not go off. Attempt to obtain any notifications from [place]. Check repeat 2-D echo. Further recommendations to follow. Objective - Vital Signs Vital signs: Vital Signs Temp 98.1 F 02/12/21 07:50 Pulse 73 02/12/21 08:00 Resp 18 02/12/21 08:00 BP 152/96 02/12/21 07:50 Pulse Ox 96 02/12/21 07:50 Intake & Output 02/11/21 02/12/21 02/12/21 18:59 06:59 18:59 Intake Total 540 Balance 540 Weight 92.986 kg Intake: Blood Product 540 Other: Voiding Method Toilet # Voids 3 1 # Bowel Movements 0 - Labs CBC & Chem 7: 02/11/21 11:37 Labs: Abnormal Lab Results - Last 24 Hours (Table) 02/11/21 02/11/21 02/11/21 Range/Units 11:37 11:37 11:37 APTT 31.8 H (22.0-30.0) sec Chloride 113 H (98-107) mmol/L Calcium 8.3 L (8.4-10.2) mg/dL Troponin I 0.035 H* (0.000-0.034) ng/mL 02/11/21 02/11/21 Range/Units 15:20 20:31 APTT 31.5 H (22.0-30.0) sec Chloride (98-107) mmol/L Calcium (8.4-10.2) mg/dL Troponin I 0.038 H* (0.000-0.034) ng/mL
[2021-02-12 12:25] LABS: African American GFR (CKD) 73.4 (60.0-200.0); Albumin 3.8 g/dL (3.80-4.90); Albumin/Globulin Ratio 1.52 (1.60-3.17); Anion Gap 11.6 mmol/L (4.00-12.00); Calcium 8.7 mg/dL (8.7-10.3); Carbon Dioxide 20.4 mmol/L (21.6-31.8); Chol/HDL Ratio 3.51; Globulin 2.5 g/dL (1.6-3.3); LDL Cholesterol,Calculated 48.2 mg/dL (0.0-131.0); Magnesium 1.8 mg/dL (1.5-2.4); Non-African American GFR(CKD) 63.4 (60.0-200.0); Phosphorus 3.2 mg/dL (2.4-5.1); Total Bilirubin 0.3 mg/dL (0.2-1.2); Total Protein 6.3 g/dL (6.2-8.2); VLDL Calculation 49.8 mg/dL (5.00-40.00)
[2021-02-12 12:33] LABS: Basophils # (A) 0.02 X 10*3/uL (0.00-0.10); Basophils % (A) 0.3 %; Eosinophils # (A) 0.06 X 10*3/uL (0.04-0.35); Eosinophils % (A) 0.9 %; HCT 37.6 % (37.2-46.3); Lymphocytes # (A) 3.35 X 10*3/uL (0.90-5.00); Lymphocytes % (A) 50.8 %; MCHC 31.9 g/dL (32.0-37.0); MCV 97.2 fL (80.0-97.0); Mean Platelet Volume 10.8 fL (9.5-12.2); Monocytes # (A) 0.52 X 10*3/uL (0.20-1.00); Monocytes % (A) 7.9 %; Neutrophils # (A) 2.63 X 10*3/uL (1.80-7.70); Neutrophils % (A) 39.9 %; Platelet Count 247 X 10*3/uL (140-440); RBC 3.87 X 10*6/uL (4.10-5.20); RDW 14.6 % (11.5-14.5); WBC 6.59 X 10*3/uL (4.50-10.00)
--- NOTE | 2021-02-12 15:46 | P.PN ---
Progress Note - Text Progress Note Date: 02/12/21 Chief Complaint: Past out History of presenting complaint: This is a pleasant 55-year-old patient of Dr. Deleon. Follows with Dr. Nils Lawrence from cardiology for arrhythmia's. She's had a prior cardiac ablation. Chronic stable medical conditions include fibromyalgia, hypertension, Crohn's, long QT, anxiety depression, arthritis. Has been smoking on and off recently. Patient was admitted to the hospital on January 11 and discharged on January 16. Admitted with acute ST elevation [place]. 2 stents/PTCa proximally occluded LAD. Also had a flareup of Crohn's colitis. Treated with steroids. 2-D echo showed EF of 30-35% Yesterday most of the day she was not feeling right. [place] diet. Been dizzy and lightheaded. Went to the bathroom fell forward. Bumped her head against the wall. Was passed out for about 10 minutes. No tongue biting or incontinence. She was initially taken to [facility] from where she was transferred here. She was positive for COVID-19 with a rapid test. Patient is unvaccinated. Denies any fever or chills. No cough. No chest pain palpitation. February 12: Laying in bed. A bit tired. No fever no chills. Appetite fair. EP service consulted. Patient is COVID PCR came back positive. Review of systems: Was done for constitutional, cardiovascular, GI, pulmonary. relevant finding as above Active Medications Ascorbic Acid (Ascorbic Acid 500 Mg Tab) 1,000 mg PO DAILY [facility] Aspirin (Aspirin 81 Mg) 81 mg PO DAILY [facility] Last Admin: 02/12/21 08:14 Dose: 81 mg Documented by: Atorvastatin Calcium (Atorvastatin 80 Mg Tab) 80 mg PO DAILY [facility] Last Admin: 02/12/21 08:14 Dose: 80 mg Documented by: Baclofen (Baclofen 10 Mg Tab) 10 mg PO BID [facility] Last Admin: 02/12/21 08:14 Dose: 10 mg Documented by: Bupropion HCl (Bupropion Sr 150 Mg Tablet.Er) 150 mg PO BID [facility] Last Admin: 02/12/21 08:14 Dose: 150 mg Documented by: Buspirone HCl (Buspirone Hcl 10 Mg Tab) 15 mg PO BID [facility] Last Admin: 02/12/21 08:11 Dose: 15 mg Documented by: Carvedilol (Carvedilol 3.125 Mg Tab) 4.6875 mg PO BID-W/MEALS [facility] Last Admin: 02/12/21 08:12 Dose: 4.6875 mg Documented by: Diphenoxylate HCl/Atropine (Diphenox-Atrop 2.5-0.025 Mg 1 Each Tab) 1 each PO QID PRN PRN Reason: Diarrhea Ergocalciferol (Ergocalciferol 1,250 Mcg (50,000 Iu) Capsule) 1,250 mcg PO STILL [facility] Last Admin: 02/12/21 08:13 Dose: 1,250 mcg Documented by: Famotidine (Famotidine 20 Mg Tab) 40 mg PO DAILY [facility] Last Admin: 02/12/21 08:21 Dose: 40 mg Documented by: Heparin Sodium (Porcine) (Heparin Sodium 1,000 Un/Ml (10ml Vl)) 0 unit IV PER PROTOCOL PRN; Protocol PRN Reason: Low PTT Hyoscyamine (Hyoscyamine Sulfate 0.125 Mg Tab) 0.125 mg PO Q4H PRN PRN Reason: ibs Sodium Chloride (Saline 0.9%) 1,000 mls @ 10 mls/hr IV .Q24H [facility] Last Admin: 02/11/21 22:50 Dose: Not Given Documented by: Heparin Sodium/Sodium Chloride (25,000 unit/ Sodium Chloride) 250 mls @ 9.95 mls/hr IV .Q24H [facility]; Protocol Last Admin: 02/11/21 14:01 Dose: Not Given Documented by: Magnesium Oxide (Magnesium Oxide 400 Mg Tab) 400 mg PO DAILY [facility] Last Admin: 02/12/21 08:14 Dose: 400 mg Documented by: Naloxone HCl (Naloxone 0.4 Mg/Ml 1 Ml Vial) 0.2 mg IV Q2M PRN PRN Reason: Opioid Reversal Nitroglycerin (Nitroglycerin Sl Tabs 0.4 Mg Tab) 0.4 mg SUBLINGUAL Q5M PRN PRN Reason: Chest Pain Non-Formulary Medication (Adalimumab [Humira(Cf) Pen]) 40 mg SQ MO [facility] Non-Formulary Medication (Alendronate Sodium [Alendronate Sodium]) 70 mg PO FR [facility] Non-Formulary Medication (Mesalamine [Mesalamine Er]) 0.375 gm PO QID [facility] Last Admin: 02/12/21 08:22 Dose: Not Given Documented by: Prochlorperazine Maleate (Prochlorperazine 10 Mg Tab) 10 mg PO Q8H PRN PRN Reason: Nausea Promethazine HCl (Promethazine Suppository 25 Mg Supp) 25 mg RECTAL BID PRN PRN Reason: Nausea Sacubitril/Valsartan (Sacubitril/Valsartan 24 Mg-26 Mg Tablet) 1 each PO BID [facility] Last Admin: 02/12/21 08:12 Dose: 1 each Documented by: Spironolactone (Spironolactone 25 Mg Tab) 25 mg PO DAILY [facility] Last Admin: 02/12/21 08:14 Dose: 25 mg Documented by: Ticagrelor (Ticagrelor 90 Mg Tab) 90 mg PO BID [facility] Last Admin: 02/12/21 08:14 Dose: 90 mg Documented by: Zinc Sulfate (Zinc Sulfate 220 Mg Cap) 220 mg PO DAILY [facility] Past medical history to include: Fibromyalgia, hypertension, Crohn's disease, , anxiety depression, osteoarthritis, non-ST elevation on 01/11/2021 with 2 stents to LAD, CHF EF 30- 35% Social history: Lives with 2 daughters. On disability. Smoking off and on. No alcohol. Family history: Reviewed, noncontributory to presentation Physical examination: VITAL SIGNS: 98.1, 72, 18, 152/96, 96% room air GENERAL: Laying in bed, awake, comfortable. LUNGS: Respiratory rate normal; PSYCH: Alert and oriented x3; mood and affect normal. NEUROLOGICAL: Cranial nerves grossly intact; no facial asymmetry, moving all 4 limbs Rest of the exam per cardiology and nursing INVESTIGATIONS, reviewed in the clinical context: February 12: White count 6.5 hemoglobin 12 platelets 247 potassium 4 creatinine 1 COVID 19 [PCR] detected Potassium 3.6 creatinine 0.8 date Troponin I 0.029, 0.037, 0.035 EKG tracing personally reviewed by me-normal sinus rhythm, poor R-wave progression, flipped T waves in anterior leads Chest x-ray film personally reviewed by me-no obvious infiltrate Assessment and plan: -This patient who recently had a ST elevation [place] with 2 stents to LAD, was not feeling well yesterday. Tired. No fever no chills. Patient passed out in the bathroom. This could be from underlying arrhythmia given ischemic cardiomyopathy. Also patient could've vasovagal from COVID-19 Telemetry. Patient does have a LifeVest. EP service consulted -COVID-19, with mild symptoms of asthenia nausea. Isolation. Vitamin C, vitamin D, zinc -Acute ST elevation myocardial infarction on. January 11/2021 Proximal LAD PTCA/ 2 stents. Aspirin, Lipitor, Brilinta -Chronic congestive heart failure from systolic dysfunction EF 30-35%, ischemic artery myopathy Aldactone 25 mg daily. Coreg 4.6875 mg twice a day -Troponin positive, likely from last admission for the [place] -Obesity BMI 37.5 Dietitian. Weight loss measures -Essential hypertension . Coreg 4.6875 mg twice a day. Valsartan 80 mg twice a day -Chronic Crohn's disease, Mesalamine 0.375 g by mouth 4 times a day, Humira -Muscle spasm Baclofen 10 mg twice a day -Hyperlipidemia Lipitor 80 mg daily -Anxiety depression, controlled BuSpar 50 mg twice a day, long acting 150 mg twice a day Continue current medications. Discussed with the patient. EP service consulted. Follow with cardiology
[2021-02-12] MEDS: HEPARIN SOD,PORK IN 0.45% NACL 25,000 UNIT in 0.45% NACL 1 250ML.BAG IV SCH (16:22)
[2021-02-12] MEDS: ZINC SULFATE 220 MG CAP PO SCH (16:40)
[2021-02-12] MEDS: ASCORBIC ACID 500 MG TAB PO SCH (16:40)
[2021-02-13] MEDS: SODIUM CHLORIDE 0.9% 1,000 ML IV SCH ×2 (00:21→23:56)
[2021-02-13] MEDS: SACUBITRIL/VALSARTAN 24 MG-26 MG TABLET PO SCH ×2 (07:40→20:26)
[2021-02-13] MEDS: ASPIRIN 81 MG PO SCH (07:40)
[2021-02-13] MEDS: carvediloL 3.125 MG TAB PO SCH (07:40)
[2021-02-13] MEDS: ASCORBIC ACID 500 MG TAB PO SCH (07:41)
[2021-02-13] MEDS: TICAGRELOR 90 MG TAB PO SCH ×2 (07:41→20:27)
[2021-02-13] MEDS: FAMOTIDINE 20 MG TAB PO SCH (07:42)
[2021-02-13] MEDS: BACLOFEN 10 MG TAB PO SCH ×2 (07:42→20:26)
[2021-02-13] MEDS: MAGNESIUM OXIDE 400 MG TAB PO SCH (07:42)
[2021-02-13] MEDS: ZINC SULFATE 220 MG CAP PO SCH (07:42)
[2021-02-13] MEDS: ATORVASTATIN 80 MG TAB PO SCH (07:42)
[2021-02-13] MEDS: busPIRone HCl 10 MG TAB PO SCH ×2 (07:42→20:26)
[2021-02-13] MEDS: SPIRONOLACTONE 25 MG TAB PO SCH (07:43)
[2021-02-13] MEDS: buPROPion SR 150 MG TABLET.ER PO SCH ×2 (07:43→20:26)
[2021-02-13] MEDS: HEPARIN SOD,PORK IN 0.45% NACL 25,000 UNIT in 0.45% NACL 1 250ML.BAG IV SCH (07:54)
[2021-02-13] MEDS: MESALAMINE 0.375 GM PO SCH ×4 (07:54→20:28)
[2021-02-13] MEDS ORDERED: NON FORMULARY DRUG (Adalimumab [Humira(Cf) Pen] 40 MG/0.4 ML Pen.Ij.Kit) SQ SCH (09:54)
--- NOTE | 2021-02-13 11:20 | P.PN ---
Subjective Patient is a pleasant 55-year-old female with history of prolonged QT interval, Crohn's disease, depression, hypertension, fibromyalgia, some form of ablation, syncope, coronary artery disease status post PCI LAD proximally 3 weeks ago with resultant ischemic cardiomyopathy with ejection fraction 30-35%. She follows with Dr. Lawrence. Patient had a recent hospitalization in December 2020 where she noted chest pain radiating to her back and was found have STEMI and underwent PCI of her LAD 01/11/2021. She had a LifeVest placed on discharge. She states she had been feeling fairly well going home. Patient presented to the hospital due to fairly sudden onset of loss of consciousness when walking. She admits she has passed out 3 times, once a few years back and another time she states occurred around the time of her NH one month ago. Per patient her LifeVest did not go off. She initially was at [facility]. Blood work showed initial troponin 0.029, 0.037, 0.03, 0.038. Sodium 142, potassium 3.6, creatinine 0.8, d-dimer 0.49. EKG shows normal sinus rhythm, Q waves V1 and V2, biphasic T-wave V2 as well as T-wave inversion 1 and aVL and prolonged QT. 02/13/21 Patient seen and examined at bedside. She denies any chest pain, shortness of breath, palpitations, lightheadedness or dizziness. Telemetry reviewed, patient maintaining sinus mechanism heart rate 7080s. No arrhythmia noted. Blood pressure 130/83, heart rate 77, afebrile, maintaining oxygen saturations on room air. Patient currently maintained on aspirin 81mg daily, atorvastatin 80 mg daily, Coreg 6.25 mg twice a day, IV heparin, andEntresto 24 mg26 mg twice a day, spironolactone 25 mg daily, Brilinta 90 mg twice a day PHYSICAL EXAMINATION Vital signs reviewed. CONSTITUTIONAL: No apparent distress. HEENT: Neck supple. No JVD. CHEST EXAMINATION: Lungs are clear to auscultation. HEART EXAMINATION: Regular rate and rhythm. S1, S2 heard. No murmurs, gallops or rub. ABDOMEN: Soft, nontender. Positive bowel sounds. EXTREMITIES: 2+ peripheral pulses, no lower extremity edema and no calf tenderness. NEUROLOGIC EXAMINATION: Patient is awake, alert and oriented x3. ASSESSMENT Syncope- Patient with numerous episodes of syncope in the past however prior workup in the office has been unremarkable. This may be vasovagal. Coronary artery disease status post STEMI with PCI LAD 01/11/21 Prolonged QT Hypertension Hyperlipidemia Ischemic cardiopathy ejection fraction 30-35% COVID-19 infection, appears asymptomatic Tobacco abuse PLAN -Obtain 2D echocardiogram -Continue cardiac telemetry -Stop IV heparin -Continue aspirin, statin, beta rose, Entresto, spironolactone and brilinta -She has her LifeVest in the hospital, however, does not have the modem needed in order to download information. Spoke with [employer], patient needs to have her modem dropped off in order to get information from the [employer]. At this time, patient is unable to have any family members drop off her modem. -Consult electrophysiology, Dr. Lawrence for further recommendations -Further recommendations to follow. Objective - Vital Signs Vital signs: Vital Signs Temp 98.7 F 02/13/21 07:00 Pulse 77 02/13/21 07:00 Resp 18 02/13/21 07:00 BP 130/83 02/13/21 07:00 Pulse Ox 96 02/13/21 07:00 Intake & Output 02/12/21 02/13/21 02/13/21 18:59 06:59 18:59 Intake Total 660 Balance 660 Intake: Oral 660 Other: Voiding Method Toilet Toilet # Voids 3 2 0 # Bowel Movements 0 - Labs CBC & Chem 7: 02/12/21 07:09 02/12/21 07:09 Labs: Abnormal Lab Results - Last 24 Hours (Table) 02/11/21 02/12/21 02/12/21 Range/Units 14:08 07:09 07:09 RBC 3.87 L (4.10-5.20) X 10*6/uL MCV 97.2 H (80.0-97.0) fL MCHC 31.9 L (32.0-37.0) g/dL RDW 14.6 H (11.5-14.5) % Chloride 111 H (96-109) mmol/L Carbon Dioxide 20.4 L (21.6-31.8) mmol/L BUN/Creatinine Ratio 10.00 L (12.00-20.00) Ratio Albumin/Globulin Ratio 1.52 L (1.60-3.17) g/dL Triglycerides 249.0 H (0.0-149.0) mg/dL VLDL Cholesterol, Calc 49.80 H (5.00-40.00) mg/dL HDL Cholesterol 39.0 L (40.0-60.0) mg/dL Coronavirus (PCR) Detected A (Not Detected)
--- NOTE | 2021-02-13 15:56 | P.PN ---
Progress Note - Text Progress Note Date: 02/13/21 Chief Complaint: Past out History of presenting complaint: This is a pleasant 55-year-old patient of Dr. Deleon. Follows with Dr. Nils Lawrence from cardiology for arrhythmia's. She's had a prior cardiac ablation. Chronic stable medical conditions include fibromyalgia, hypertension, Crohn's, long QT, anxiety depression, arthritis. Has been smoking on and off recently. Patient was admitted to the hospital on January 11 and discharged on January 16. Admitted with acute ST elevation [place]. 2 stents/PTCa proximally occluded LAD. Also had a flareup of Crohn's colitis. Treated with steroids. 2-D echo showed EF of 30-35% Yesterday most of the day she was not feeling right. [place] diet. Been dizzy and lightheaded. Went to the bathroom fell forward. Bumped her head against the wall. Was passed out for about 10 minutes. No tongue biting or incontinence. She was initially taken to [facility] from where she was transferred here. She was positive for COVID-19 with a rapid test. Patient is unvaccinated. Denies any fever or chills. No cough. No chest pain palpitation. February 12: Laying in bed. A bit tired. No fever no chills. Appetite fair. EP service consulted. Patient is COVID PCR came back positive. February 13: Laying in bed. Comfortable. No fever no chills. No shortness of breath. No palpitation. Pending evaluation from EP service. Also pending evaluation of LifeVest. Review of systems: Was done for constitutional, cardiovascular, GI, pulmonary. relevant finding as above Active Medications Ascorbic Acid (Ascorbic Acid 500 Mg Tab) 1,000 mg PO DAILY [facility] Last Admin: 02/13/21 07:41 Dose: 1,000 mg Documented by: Aspirin (Aspirin 81 Mg) 81 mg PO DAILY [facility] Last Admin: 02/13/21 07:40 Dose: 81 mg Documented by: Atorvastatin Calcium (Atorvastatin 80 Mg Tab) 80 mg PO DAILY [facility] Last Admin: 02/13/21 07:42 Dose: 80 mg Documented by: Baclofen (Baclofen 10 Mg Tab) 10 mg PO BID [facility] Last Admin: 02/13/21 07:42 Dose: 10 mg Documented by: Bupropion HCl (Bupropion Sr 150 Mg Tablet.Er) 150 mg PO BID [facility] Last Admin: 02/13/21 07:43 Dose: 150 mg Documented by: Buspirone HCl (Buspirone Hcl 10 Mg Tab) 15 mg PO BID [facility] Last Admin: 02/13/21 07:42 Dose: 15 mg Documented by: Carvedilol (Carvedilol 6.25 Mg Tab) 6.25 mg PO BID-W/MEALS [facility] Diphenoxylate HCl/Atropine (Diphenox-Atrop 2.5-0.025 Mg 1 Each Tab) 1 each PO QID PRN PRN Reason: Diarrhea Ergocalciferol (Ergocalciferol 1,250 Mcg (50,000 Iu) Capsule) 1,250 mcg PO STILL [facility] Last Admin: 02/12/21 08:13 Dose: 1,250 mcg Documented by: Famotidine (Famotidine 20 Mg Tab) 40 mg PO DAILY [facility] Last Admin: 02/13/21 07:42 Dose: 40 mg Documented by: Heparin Sodium (Porcine) (Heparin Sodium 1,000 Un/Ml (10ml Vl)) 0 unit IV PER PROTOCOL PRN; Protocol PRN Reason: Low PTT Hyoscyamine (Hyoscyamine Sulfate 0.125 Mg Tab) 0.125 mg PO Q4H PRN PRN Reason: ibs Sodium Chloride (Saline 0.9%) 1,000 mls @ 10 mls/hr IV .Q24H [facility] Last Admin: 02/13/21 00:21 Dose: Not Given Documented by: Magnesium Oxide (Magnesium Oxide 400 Mg Tab) 400 mg PO DAILY [facility] Last Admin: 02/13/21 07:42 Dose: 400 mg Documented by: Naloxone HCl (Naloxone 0.4 Mg/Ml 1 Ml Vial) 0.2 mg IV Q2M PRN PRN Reason: Opioid Reversal Nitroglycerin (Nitroglycerin Sl Tabs 0.4 Mg Tab) 0.4 mg SUBLINGUAL Q5M PRN PRN Reason: Chest Pain Non-Formulary Medication (Adalimumab [Humira(Cf) Pen]) 40 mg SQ MO [facility] Last Admin: 02/13/21 07:43 Dose: Not Given Documented by: Non-Formulary Medication (Alendronate Sodium [Alendronate Sodium]) 70 mg PO [facility] Non-Formulary Medication (Mesalamine [Mesalamine Er]) 0.375 gm PO QID [facility] Last Admin: 02/13/21 07:54 Dose: Not Given Documented by: Prochlorperazine Maleate (Prochlorperazine 10 Mg Tab) 10 mg PO Q8H PRN PRN Reason: Nausea Promethazine HCl (Promethazine Suppository 25 Mg Supp) 25 mg RECTAL BID PRN PRN Reason: Nausea Sacubitril/Valsartan (Sacubitril/Valsartan 24 Mg-26 Mg Tablet) 1 each PO BID [facility] Last Admin: 02/13/21 07:40 Dose: 1 each Documented by: Spironolactone (Spironolactone 25 Mg Tab) 25 mg PO DAILY [facility] Last Admin: 02/13/21 07:43 Dose: 25 mg Documented by: Ticagrelor (Ticagrelor 90 Mg Tab) 90 mg PO BID [facility] Last Admin: 02/13/21 07:41 Dose: 90 mg Documented by: Zinc Sulfate (Zinc Sulfate 220 Mg Cap) 220 mg PO DAILY [facility] Last Admin: 02/13/21 07:42 Dose: 220 mg Documented by: Past medical history to include: Fibromyalgia, hypertension, Crohn's disease, , anxiety depression, osteoarthritis, non-ST elevation on 01/11/2021 with 2 stents to LAD, CHF EF 30- 35% Social history: Lives with 2 daughters. On disability. Smoking off and on. No alcohol. Family history: Reviewed, noncontributory to presentation Physical examination: VITAL SIGNS: 98.7, 77, 18, 1:30/83, 96% room air GENERAL: Laying in bed, awake, comfortable. LUNGS: Respiratory rate normal; PSYCH: Alert and oriented x3; mood and affect normal. NEUROLOGICAL: Cranial nerves grossly intact; no facial asymmetry, moving all 4 limbs Rest of the exam per cardiology and nursing INVESTIGATIONS, reviewed in the clinical context: February 12: White count 6.5 hemoglobin 12 platelets 247 potassium 4 creatinine 1 COVID 19 [PCR] detected. D-dimer: 0.49 Potassium 3.6 creatinine 0.8 date Troponin I 0.029, 0.037, 0.035 EKG tracing personally reviewed by me-normal sinus rhythm, poor R-wave progression, flipped T waves in anterior leads Chest x-ray film personally reviewed by me-no obvious infiltrate Assessment and plan: -This patient who recently had a ST elevation [place] with 2 stents to LAD, was not feeling well yesterday. Tired. No fever no chills. Patient passed out in the bathroom. This could be from underlying arrhythmia given ischemic cardiomyopathy. Also patient could've vasovagal from COVID-19 Telemetry. LifeVest: Evaluation pending. EP service consulted -COVID-19, with mild symptoms of asthenia nausea. No hypoxia Isolation. Vitamin C, vitamin D, zinc -Acute ST elevation myocardial infarction on. January 11/2021 Proximal LAD PTCA/ 2 stents. Aspirin, Lipitor, Brilinta -Chronic congestive heart failure from systolic dysfunction EF 30-35%, ischemic artery myopathy Aldactone 25 mg daily. Coreg 4.6875 mg twice a day -Troponin positive, likely from last admission for the [place] -Obesity BMI 37.5 Dietitian. Weight loss measures -Essential hypertension . Coreg 4.6875 mg twice a day. Valsartan 80 mg twice a day -Chronic Crohn's disease, Mesalamine 0.375 g by mouth 4 times a day, Humira -Muscle spasm Baclofen 10 mg twice a day -Hyperlipidemia Lipitor 80 mg daily -Anxiety depression, controlled BuSpar 50 mg twice a day, long acting 150 mg twice a day Continue current medications. Pending LifeVest inhalation, EP service evaluation. Discussed with patient.
[2021-02-13] MEDS: carvediloL 6.25 MG TAB PO SCH (17:21)
[2021-02-14 05:58] LABS: African American GFR (CKD) >90 (>60 ml/min/1.73 sqM); Anion Gap 12 mmol/L; Blood Urea Nitrogen 8 mg/dL (7-17); Calcium 8.9 mg/dL (8.4-10.2); Carbon Dioxide 21 mmol/L (22-30); Chloride 107 mmol/L (98-107); Glucose 113 mg/dL (74-99); Non-African American GFR(CKD) 81 (>60 ml/min/1.73 sqM); Potassium 3.5 mmol/L (3.5-5.1); Sodium 140 mmol/L (137-145)
[2021-02-14 08:09] VITALS: BP 150/76; PULSE 80; RESP 18; TEMP 97.9
[2021-02-14] MEDS: TICAGRELOR 90 MG TAB PO SCH (08:38)
[2021-02-14] MEDS: carvediloL 6.25 MG TAB PO SCH (08:38)
[2021-02-14] MEDS: buPROPion SR 150 MG TABLET.ER PO SCH (08:38)
[2021-02-14] MEDS: SACUBITRIL/VALSARTAN 24 MG-26 MG TABLET PO SCH (08:38)
[2021-02-14] MEDS: ZINC SULFATE 220 MG CAP PO SCH (08:38)
[2021-02-14] MEDS: ATORVASTATIN 80 MG TAB PO SCH (08:38)
[2021-02-14] MEDS: BACLOFEN 10 MG TAB PO SCH (08:39)
[2021-02-14] MEDS: busPIRone HCl 10 MG TAB PO SCH (08:39)
[2021-02-14] MEDS: MAGNESIUM OXIDE 400 MG TAB PO SCH (08:39)
[2021-02-14] MEDS: FAMOTIDINE 20 MG TAB PO SCH (08:39)
[2021-02-14] MEDS: ASPIRIN 81 MG PO SCH (08:39)
[2021-02-14] MEDS: ASCORBIC ACID 500 MG TAB PO SCH (08:39)
[2021-02-14] MEDS: SPIRONOLACTONE 25 MG TAB PO SCH (08:40)
[2021-02-14] MEDS: MESALAMINE 0.375 GM PO SCH (08:50)
--- NOTE | 2021-02-14 12:53 | P.PN ---
Subjective Patient is a pleasant 55-year-old female with history of prolonged QT interval, Crohn's disease, depression, hypertension, fibromyalgia, some form of ablation, syncope, coronary artery disease status post PCI LAD proximally 3 weeks ago with resultant ischemic cardiomyopathy with ejection fraction 30-35%. She follows with Dr. Lawrence. Patient had a recent hospitalization in December 2020 where she noted chest pain radiating to her back and was found have STEMI and underwent PCI of her LAD 01/11/2021. She had a LifeVest placed on discharge. She states she had been feeling fairly well going home. Patient presented to the hospital due to fairly sudden onset of loss of consciousness when walking. She admits she has passed out 3 times, once a few years back and another time she states occurred around the time of her [place] one month ago. Per patient her LifeVest did not go off. She initially was at [facility]. Blood work showed initial troponin 0.029, 0.037, 0.03, 0.038. Sodium 142, potassium 3.6, creatinine 0.8, d-dimer 0.49. EKG shows normal sinus rhythm, Q waves V1 and V2, biphasic T-wave V2 as well as T-wave inversion 1 and aVL and prolonged QT. 02/14/21 Patient seen and examined at bedside. She denies any chest pain, shortness of breath, palpitations, lightheadedness or dizziness. Telemetry reviewed, patient maintaining sinus mechanism heart rate 7080s. No arrhythmia noted. Blood pressure 113/77, heart rate 89, afebrile, maintaining saturations on room air. Patient currently maintained on aspirin 81mg daily, atorvastatin 80 mg daily, Coreg 6.25 mg twice a day, IV heparin, and Entresto 24 mg26 mg twice a day, spironolactone 25 mg daily, Brilinta 90 mg twice a day. At this time, patient is unable to have any family members drop off her modem in order to get information regarding her LifeVest information. Echocardiogram revealed EF 35-40%, mid anterior LV wall and apical LV wall hypokinetic. PHYSICAL EXAMINATION Vital signs reviewed. CONSTITUTIONAL: No apparent distress. HEENT: Neck supple. No JVD. CHEST EXAMINATION: Lungs are clear to auscultation. HEART EXAMINATION: Regular rate and rhythm. S1, S2 heard. No murmurs, gallops or rub. ABDOMEN: Soft, nontender. Positive bowel sounds. EXTREMITIES: 2+ peripheral pulses, no lower extremity edema and no calf tenderness. NEUROLOGIC EXAMINATION: Patient is awake, alert and oriented x3. ASSESSMENT Syncope- Patient with numerous episodes of syncope in the past however prior workup in the office has been unremarkable. This may be vasovagal. Coronary artery disease status post STEMI with PCI LAD 01/11/21 Prolonged QT Hypertension Hyperlipidemia Ischemic cardiopathy ejection fraction 30-35% COVID-19 infection, appears asymptomatic Tobacco abuse PLAN -Spoke with Dr. Lawrence, Plan to download [employer] information from home, follow up with Dr. Lawrence in 3 weeks. From a cardiology perspective, patient can be discharged home with follow up wit h Dr. lawrence. -Continue aspirin, statin, beta rose, Entresto, spironolactone and brilinta -She has her [employer] in the hospital, however, does not have the modem needed in order to download information. Spoke with [email or web address], patient needs to have her modem dropped off in order to get information from the [employer]. At this time, patient is unable to have any family members drop off her modem. Objective - Vital Signs Vital signs: Vital Signs Temp 97.9 F 02/14/21 07:00 Pulse 80 02/14/21 07:00 Resp 18 02/14/21 07:00 BP 150/76 02/14/21 07:00 Pulse Ox 95 02/14/21 07:00 Intake & Output 02/13/21 02/14/21 02/14/21 18:59 06:59 18:59 Intake Total 240 Balance 240 Intake: Oral 240 Other: Voiding Method Toilet # Voids 1 2 # Bowel Movements 0 - Labs CBC & Chem 7: 02/12/21 07:09 02/14/21 05:09 Labs: Abnormal Lab Results - Last 24 Hours (Table) 02/14/21 Range/Units 05:09 Carbon Dioxide 21 L (22-30) mmol/L Glucose 113 H (74-99) mg/dL
--- NOTE | 2021-02-14 13:29 | P.EPCON ---
Electrophysiology Consult - EP Consult Electrophysiology Consult: This is Dr. Lawrence dictating a consult on this patient/result consultation for sick The patient was interviewed and examined IMPRESSION / ASSESSMENT: Patient complaining of nausea vomiting. 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 She has had no arrhythmias. She will go home and we will interrogate the LifeVest remotely to look for any arrhythmias Will continue on her current medications unchanged Adequate hydration HPI patient complained of nausea vomiting and syncope She is Covid positive She denied palpitations to me She gone to the bathroom. She been complaining being dizzy and lightheaded and then fell forward and passed out She is positive for COVID-19 with a rapid test, patient is unvaccinated The patient already has a LifeVest. She'll ischemic adenopathy recent NE She denied any palpitations prior to the episode She did not feel that the LifeVest went off ROS: No fever chills or rigors, no cough, phlegm or expectoration, no nausea, vomiting or diarrhea, no hematuria, dysuria, no musculoskeletal complaints, no strokes or seizures, no skin lesions. EXAMINATION: Blood pressure 130 ms and millimeters mercury pulse rate in the 80s, afebrile normal respirations Patient sitting comfortably in chair She give me full history and she categorically denied the LifeVest going off or feeling any palpitations She has had palpitations in the past and can recognize this REVIEW OF LABS, ECG & MEDICAL DATA chest x-ray normal white count, hemoglobin 12 Electrolytes, sodium 143 potassium 4.0, normal BUN 10 and creatinine 1.0 Borderline troponins LDL 48, triglycerides 249, total cholesterol 137, HDL 39 Coronavirus PCR detected She has a past history of cardio myopathy with complete resolution. At that time she had a borderline abnormal QT interval but she has received Zofran in the emergency room She had torsade secondary to Zofran at that time potassium was low so she has Crohn's disease History of he does not have long QT syndrome, she has drug-induced torsade
--- NOTE | 2021-02-14 15:49 | ECHOF ---
Referral Reason:EF syncope MEASUREMENTS -------- HEIGHT: 157.5 cm WEIGHT: 93.0 kg BP: 116/77 RVIDd: 3.0 cm (< 3.3) FINDINGS -------- Sinus rhythm. This was a technically adequate study. Limited Study Overall left ventricular systolic function is moderately impaired with, an EF between 35 - 40 %. Mi d anterior LV wall motion is hypokinetic. Apical anterior LV wall motion is hypokinetic. Apical lateral LV wall motion is hypokinetic. Apical inferior LV wall motion is hypokinetic. Apical s eptum LV wall motion is hypokinetic. There is no pericardial effusion. CONCLUSIONS -------- 1. Overall left ventricular systolic function is moderately impaired with, an EF between 35 - 40 %. 2. Mid anterior LV wall motion is hypokinetic. 3. Apical anterior LV wall motion is hypokinetic. 4. Apical lateral LV wall motion is hypokinetic. 5. Apical inferior LV wall motion is hypokinetic. 6. Apical septum LV wall motion is hypokinetic. 7. There is no pericardial effusion. CONSTRUCTION COORDINATOR: Sydney Arias RDCS
--- NOTE | 2021-02-14 16:41 | P.DS ---
Providers Date of admission: 02/14/21 08:54 Expected date of discharge: 02/14/21 Attending physician: Peewee Vallejo Consults: 02/11/21 02:36 Consult Physician Routine Consulting Provider: Josh Armstrong Consult Reason/Comments: syncope Do you want consulting provider notified?: Yes 02/11/21 22:57 Consult Physician Routine Consulting Provider: Nils Lawrence Consult Reason/Comments: re: Syncope, prolonged QT, CMP Do you want consulting provider notified?: Already Contacted Primary care physician: Avtar Colon [facility] Course: Chief Complaint: Past out History of presenting complaint: This is a pleasant 55-year-old patient of Dr. Deleon. Follows with Dr. Nils Lawrence from cardiology for arrhythmia's. She's had a prior cardiac ablation. Chronic stable medical conditions include fibromyalgia, hypertension, Crohn's, long QT, anxiety depression, arthritis. Has been smoking on and off recently. Patient was admitted to the hospital on January 11 and discharged on January 16. Admitted with acute ST elevation [place]. 2 stents/PTCa proximally occluded LAD. Also had a flareup of Crohn's colitis. Treated with steroids. 2-D echo showed EF of 30-35% Yesterday most of the day she was not feeling right. Healy diet. Been dizzy and lightheaded. Went to the bathroom fell forward. Bumped her head against the wall. Was passed out for about 10 minutes. No tongue biting or incontinence. She was initially taken to [facility] from where she was transferred here. She was positive for COVID-19 with a rapid test. Patient is unvaccinated. Denies any fever or chills. No cough. No chest pain palpitation. Patient's COVID 19 PCR came back to be positive. Her pulse ox was good has no indication for any other medications. Supplement medications including vitamin C zinc vitamin D was added. Patient had no arrhythmias here. Patient has not been smoking since the last presentation the hospital recently. Today: Seen by Dr. Nils Lawrence from cardiology. Patient did not have a remote for a LifeVest. Patient is being discharged and will follow-up with Dr. Nils Lawrence in the office. She'll communicate the results of the LifeVest. Patient was told about COVID-19 isolation. Consultation: Cardiology and and Dr. Nils Lawrence from Past medical history to include: Fibromyalgia, hypertension, Crohn's disease, , anxiety depression, osteoarthritis, non-ST elevation on 01/11/2021 with 2 stents to LAD, CHF EF 30- 35% Social history: Lives with 2 daughters. On disability. Smoking off and on. No alcohol. Family history: Reviewed, noncontributory to presentation Physical examination: VITAL SIGNS: 97.9, 80, 18, 150/76, 95% room air GENERAL: Laying in bed, awake, comfortable. LUNGS: Respiratory rate normal; PSYCH: Alert and oriented x3; mood and affect normal. NEUROLOGICAL: Cranial nerves grossly intact; no facial asymmetry, moving all 4 limbs Rest of the exam per cardiology and nursing INVESTIGATIONS, reviewed in the clinical context: February 14: Potassium 3.5 crit 0.82 LDL 48 February 12: White count 6.5 hemoglobin 12 platelets 247 potassium 4 creatinine 1 COVID 19 [PCR] detected. D-dimer: 0.49 Potassium 3.6 creatinine 0.8 date Troponin I 0.029, 0.037, 0.035 EKG tracing personally reviewed by me-normal sinus rhythm, poor R-wave progression, flipped T waves in anterior leads Chest x-ray film personally reviewed by me-no obvious infiltrate Assessment and plan: -Syncope, likely vasovagal from COVID-19 Outpatient LifeVest interrogation -COVID-19, with mild symptoms of asthenia nausea. No hypoxia Vitamin C, vitamin D, zinc -Acute ST elevation myocardial infarction on. January 11/2021 Proximal LAD PTCA/ 2 stents. Aspirin, Lipitor, Brilinta -Chronic congestive heart failure from systolic dysfunction EF 30-35%, ischemic artery myopathy Aldactone 25 mg daily. Coreg 4.6875 mg twice a day -Troponin positive, likely from last admission for the [place] -Obesity BMI 37.5 Dietitian. Weight loss measures -Essential hypertension . Coreg6.25 mg twice a day. Valsartan 80 mg twice a day -Chronic Crohn's disease, Mesalamine 0.375 g by mouth 4 times a day, Humira -Muscle spasm Baclofen 10 mg twice a day -Hyperlipidemia Lipitor 80 mg daily -Anxiety depression, controlled BuSpar 50 mg twice a day, long acting 150 mg twice a day Disposition: Home Plan - Discharge Summary Discharge Rx Participant: Yes New Discharge Prescriptions: New Ascorbic Acid [Vitamin C] 1,000 mg PO DAILY #60 tab Sacubitril/Valsartan [Entresto 24 mg-26 mg Tablet] 1 each PO BID #60 tablet Zinc Sulfate [Orazinc] 220 mg PO DAILY #30 cap Continue Adalimumab [Humira(Cf) Pen] 40 mg SQ MO Alendronate Sodium 70 mg PO FR Atorvastatin [Lipitor] 80 mg PO DAILY busPIRone HCL 15 mg PO BID Diphenoxylate HCl/Atropine [Lomotil 2.5-0.025 mg Tablet] 1 tab PO QID PRN PRN Reason: Diarrhea Famotidine [Pepcid] 40 mg PO DAILY Hyoscyamine Sulfate [Levsin] 0.125 mg PO Q4H PRN PRN Reason: ibs Magnesium Oxide 400 mg PO DAILY Mesalamine [Mesalamine ER] 0.375 gm PO QID Promethazine Suppository [Phenergan] 25 mg RECTAL BID PRN PRN Reason: Nausea Baclofen [Lioresal] 10 mg PO BID buPROPion HCL [buPROPion HCL SR] 150 mg PO BID Ergocalciferol [Vitamin D2 (1250 Mcg = 42098 Iu)] 1,250 mcg PO STILL Prochlorperazine [Compazine] 10 mg PO Q8H PRN PRN Reason: Nausea Spironolactone [Aldactone] 25 mg PO DAILY Triamcinolone 0.5% Cream [Kenalog 0.5% Cream] 1 applic TOPICAL QID PRN PRN Reason: Rash Ticagrelor [Brilinta] 90 mg PO BID 30 Days #60 tab Aspirin 81 mg PO DAILY 30 Days #30 chew Changed carvediloL [Coreg] 6.26 mg PO BID-W/MEALS #60 tab Discontinued Valsartan [Diovan] 80 mg PO BID 30 Days #60 tab Discharge Medication List Adalimumab [Humira(Cf) Pen] 40 mg SQ MO 01/11/21 [History] Alendronate Sodium 70 mg PO FR 01/11/21 [History] Atorvastatin [Lipitor] 80 mg PO DAILY 01/11/21 [History] Baclofen [Lioresal] 10 mg PO BID 01/11/21 [History] Diphenoxylate HCl/Atropine [Lomotil 2.5-0.025 mg Tablet] 1 tab PO QID PRN 01/11/21 [History] Ergocalciferol [Vitamin D2 (1250 Mcg = 61692 Iu)] 1,250 mcg PO STILL 01/11/21 [History] Famotidine [Pepcid] 40 mg PO DAILY 01/11/21 [History] Hyoscyamine Sulfate [Levsin] 0.125 mg PO Q4H PRN 01/11/21 [History] Magnesium Oxide 400 mg PO DAILY 01/11/21 [History] Mesalamine [Mesalamine ER] 0.375 gm PO QID 01/11/21 [History] Prochlorperazine [Compazine] 10 mg PO Q8H PRN 01/11/21 [History] Promethazine Suppository [Phenergan] 25 mg RECTAL BID PRN 01/11/21 [History] Spironolactone [Aldactone] 25 mg PO DAILY 01/11/21 [History] Triamcinolone 0.5% Cream [Kenalog 0.5% Cream] 1 applic TOPICAL QID PRN 01/11/21 [History] buPROPion HCL [buPROPion HCL SR] 150 mg PO BID 01/11/21 [History] busPIRone HCL 15 mg PO BID 01/11/21 [History] Aspirin 81 mg PO DAILY 30 Days #30 chew 01/16/21 [Rx] Ticagrelor [Brilinta] 90 mg PO BID 30 Days #60 tab 01/16/21 [Rx] Ascorbic Acid [Vitamin C] 1,000 mg PO DAILY #60 tab 02/14/21 [Rx] Sacubitril/Valsartan [Entresto 24 mg-26 mg Tablet] 1 each PO BID #60 tablet 02/14/21 [Rx] Zinc Sulfate [Orazinc] 220 mg PO DAILY #30 cap 02/14/21 [Rx] carvediloL [Coreg] 6.26 mg PO BID-W/MEALS #60 tab 02/14/21 [Rx] Follow up Appointment(s)/Referral(s): Nils Lawrence MD [STAFF PHYSICIAN] - 03/06/21 8:30 am (At the main office.) Avtar Deleon DO [Primary Care Provider] - 1-2 days Patient Instructions/Handouts: Coronavirus Disease 2019 (COVID-19), Syncope (DC) Discharge Disposition: HOME SELF-CARE
[2021-02-17] MEDS ORDERED: NON FORMULARY DRUG (Alendronate Sodium [Alendronate Sodium] 70 MG Tablet) PO SCH (09:54)
== END 2021-02-14 12:15 | disposition home or self-care (01) | DRG 280 ==
LOC: EC 01:31 → 6NMEDSUR 02:36 → OBSVTOIN 02-14 08:54
PROVIDERS: ADMIT Hospitalist; ATTEND Hospitalist
DX: R55 Syncope and collapse (principal); U07.1 COVID-19; I21.02 ST elevation (STEMI) myocardial infarction involving left anterior descending coronary artery; I47.1 Supraventricular tachycardia; I50.22 Chronic systolic (congestive) heart failure; K50.10 Crohn's disease of large intestine without complications; E78.5 Hyperlipidemia, unspecified; F17.200 Nicotine dependence, unspecified, uncomplicated; F41.8 Other specified anxiety disorders; I25.10 Atherosclerotic heart disease of native coronary artery without angina pectoris; I25.2 Old myocardial infarction; I25.5 Ischemic cardiomyopathy; M19.90 Unspecified osteoarthritis, unspecified site; M79.7 Fibromyalgia; I11.0 Hypertensive heart disease with heart failure; Z98.61 Coronary angioplasty status; Z83.3 Family history of diabetes mellitus; Z82.49 Family history of ischemic heart disease and other diseases of the circulatory system; Z79.899 Other long term (current) drug therapy; Z79.82 Long term (current) use of aspirin; Z79.02 Long term (current) use of antithrombotics/antiplatelets; Z68.37 Body mass index [BMI] 37.0-37.9, adult; E66.9 Obesity, unspecified; R94.31 Abnormal electrocardiogram [ECG] [EKG]; M62.838 Other muscle spasm; W19.XXXA Unspecified fall, initial encounter; W22.01XA Walked into wall, initial encounter
CPT/HCPCS: 71045; 80048; 80053; 80061; 83735; 84100; 84484; 85025; 85379; 85610; 85730; 93005; 93308; 99285

== ENCOUNTER → 2021-04-17 | Outpatient (CLI) | payer OTHER ==
[2021-04-17 16:23] LABS: Chol/HDL Ratio 2.61 Ratio; LDL Cholesterol,Calculated 40.1 mg/dL (0.0-131.0)
== END | disposition home or self-care (01) ==
LOC: LABWHC1 08:53
PROVIDERS: ATTEND Internal Medicine Clinical Cardiac Electrophysiology
DX: I25.10 Atherosclerotic heart disease of native coronary artery without angina pectoris (principal); E78.1 Pure hyperglyceridemia
CPT/HCPCS: 36415; 80061

== ENCOUNTER → 2021-07-13 | Outpatient (CLI) | payer OTHER ==
[2021-07-13 17:40] LABS: Anion Gap 10.5 mmol/L (10.00-18.00); BUN/Creat Ratio 9.8 Ratio (12.00-20.00); Blood Urea Nitrogen 9.2 mg/dL (9.0-27.0); Calcium 9.2 mg/dL (8.7-10.3); Carbon Dioxide 25.2 mmol/L (20.0-27.5); Magnesium 2.1 mg/dL (1.5-2.4); Non-African American GFR(CKD) 68.1 (60.0-200.0); Potassium 4.8 mmol/L (3.5-5.5)
== END | disposition home or self-care (01) ==
LOC: LABWHC1 08:35
PROVIDERS: ATTEND Nurse Practitioner Adult Health
DX: I10 Essential (primary) hypertension (principal)
CPT/HCPCS: 36415; 80048; 83735

== ENCOUNTER → 2022-01-11 | Outpatient (CLI) | payer OTHER ==
[~2022-01-11] MED LIST: REGADENOSON 0.4 MG/5 ML SYRINGE IV PRN
--- NOTE | 2022-01-11 10:50 | CA ---
Lexiscan Nuclear Stress Test Report Name: Kerry Garcia Exam Date: 01/11/2022 09:52 Exam Location: [facility] Ht (in): 61 Wt (lb): 217 BSA: 1.96 Ordering Phys: Nils Lawrence MD Referring Phys: Elsy Wood Technologist: SHARI,, Age: 56 Gender: F : 1965 Procedure CPT: Indications: I25.10 cardiovascular disease ICD-10 Codes: Patient History: Chest Pain Short of Breath Medications: Meds past 24 hrs: Pretest Chest Pain: STRESS TEST Lexiscan Protocol Exercise Duration (min:sec): 02:[address] Depressions (mm): Angina Score: Clayton Score: Resting HR (bpm): 72 Peak HR (bpm): 89 Resting BP (mmHg): 146 / 90 Peak BP (mmHg): 152 / 84 MPHR: 164 Target HR: 139 % MPHR: 54 METS: 1.0 Total Dose: Peak Dose: Atropine: Double Product: 94753 BP Response: Stress Termination: Infusion complete Stress Symptoms: No chest pain or symptoms Stress Summary: ECG ANALYSIS Resting ECG: Stress ECG: CONCLUSIONS Non-diagnostic electrocardiogram stress test Please follow-up on the Cardiolite portion. Dr. Adolfo Mcgrath MD (Electronically Signed) Final Date: 11 January 2022 10:50
--- NOTE | 2022-01-11 12:29 | NM ---
EXAMINATION TYPE: NM stress lexiscan cardiolite DATE OF EXAM: 01/11/2022 COMPARISON: NONE HISTORY: I25.9 chronic ischemic heart disease TECHNIQUE: After the intravenous administration of 9.85 mCi Tc 99m Sestamibi - Cardiolite resting SP ECT images acquired 90 minutes post injection. The patient received 0.4mg Lexiscan, 24.8 mCi Tc 99m Sestamibi - Stress images obtained [address] injection FINDINGS: Review of stress and rest SPECT images demonstrates large area of fixed defect involving the anterior wall, anteroapical, apical and posterior apical regions. Gated analysis shows global hypokinesia and estimated ejection fraction of 35%. IMPRESSION: No scintigraphic evidence for reversible ischemia. Areas of remote insult and global hypokinesia.
== END | disposition home or self-care (01) ==
LOC: RADNMMAIN 07:14
PROVIDERS: ATTEND Internal Medicine Clinical Cardiac Electrophysiology
DX: I25.10 Atherosclerotic heart disease of native coronary artery without angina pectoris (principal); I25.9 Chronic ischemic heart disease, unspecified
CPT/HCPCS: 93017; 78452; A9500; J2785

== ENCOUNTER → 2022-03-14 | Outpatient (CLI) | payer OTHER ==
[2022-03-14 14:21] LABS: African American GFR (CKD) 69.6 (60.0-200.0); Anion Gap 9.5 mmol/L (10.00-18.00); BUN/Creat Ratio 15.87 Ratio (12.00-20.00); Blood Urea Nitrogen 16.5 mg/dL (9.0-27.0); Calcium 9.5 mg/dL (8.7-10.3); Carbon Dioxide 26.5 mmol/L (20.0-27.5); Magnesium 2.3 mg/dL (1.5-2.4); Potassium 5.2 mmol/L (3.5-5.5)
== END | disposition home or self-care (01) ==
LOC: LABWHC1 09:00
PROVIDERS: ATTEND Nurse Practitioner Adult Health
DX: I10 Essential (primary) hypertension (principal)
CPT/HCPCS: 36415; 80048; 83735

== ENCOUNTER 2022-05-08 07:20 | Day surgery (SDC) | payer OTHER ==
[2022-05-03 16:11] VITALS: BMI 40.5
[~2022-05-08 07:20] MED LIST changes: +ALPRAZolam 0.25 MG TAB PO PRN; +ALPRAZolam 0.5 MG TAB PO PRN; +ASPIRIN 325 MG TAB PO STA; +ATORVASTATIN 80 MG TAB PO STA; +HEPARIN SODIUM,PORCINE 10,000 UNIT in SODIUM CHLORIDE 0.9% 1,000 ML IRRIGATION PRN; +HEPARIN SODIUM,PORCINE 2,500 UNIT in SODIUM CHLORIDE 0.9% 250 ML IRRIGATION PRN; +NITROGLYCERIN SL TABS 0.4 MG TAB SUBLINGUAL PRN; -REGADENOSON 0.4 MG/5 ML SYRINGE IV PRN; +SODIUM CHLORIDE 0.9% 1,000 ML in EMPTY BAG 1 BAG IV SCH
[2022-05-08 07:36] VITALS: RESP 18; TEMP 97.2
[2022-05-08 07:47] LABS: Basophils # (A) 0.1 k/uL (0-0.2); Basophils % (A) 1 %; Eosinophils # (A) 0.2 k/uL (0-0.7); Eosinophils % (A) 2 %; HCT 42.2 % (34.0-46.0); HGB 14.5 gm/dL (11.4-16.0); Lymphocytes # (A) 2.7 k/uL (1.0-4.8); Lymphocytes % (A) 29 %; MCH 32.4 pg (25.0-35.0); MCHC 34.2 g/dL (31.0-37.0); MCV 94.6 fL (80.0-100.0); Mean Platelet Volume 7.3; Monocytes # (A) 0.5 k/uL (0-1.0); Monocytes % (A) 5 %; Neutrophils # (A) 5.8 k/uL (1.3-7.7); Neutrophils % (A) 62 %; Platelet Count 352 k/uL (150-450); RBC 4.46 m/uL (3.80-5.40); RDW 13.4 % (11.5-15.5); WBC 9.3 k/uL (3.8-10.6)
[2022-05-08 08:07] LABS: Calcium 9.4 mg/dL (8.4-10.2); Potassium 4.4 mmol/L (3.5-5.1)
[2022-05-08] MEDS ORDERED: VERAPAMIL 2.5 MG/ML 2 ML AMP ONE (09:10)
[2022-05-08] MEDS ORDERED: fentaNYL (PF) 50 MCG/ML 2 ML AMP ONE (09:25)
[2022-05-08] MEDS ORDERED: HEPARIN SODIUM 1,000 UN/ML (10ML VL) ONE (09:25)
[2022-05-08] MEDS ORDERED: MIDAZOLAM 2 MG/2 ML VIAL IV ONE (09:50)
[2022-05-08] MEDS ORDERED: fentaNYL (PF) 50 MCG/ML 2 ML AMP IV ONE (09:50)
[2022-05-08] MEDS ORDERED: LIDOCAINE 1% INJ 10MG/ML (30 ML VIAL-PF) SQ ONE (09:51)
[2022-05-08] MEDS ORDERED: HEPARIN SODIUM 1,000 UN/ML (10ML VL) IV ONE (09:55)
[2022-05-08] MEDS ORDERED: ATROPINE SULFATE 0.1 MG/ML 10ML SYRINGE IV ONE (10:05)
[2022-05-08] MEDS ORDERED: DOPamine DRIP 800 MG in DEXTROSE/WATER 1 250ML.BAG IV ONE (10:10)
[2022-05-08] MEDS ORDERED: IOPAMIDOL-370 125ML BTL INJ ONE (10:21)
[2022-05-08 16:04] VITALS: BP 111/66; PULSE 81
--- NOTE | 2022-05-09 08:31 | CC ---
CARDIAC CATHETERIZATION REPORT ADDITIONAL REFERRING PHYSICIAN: HISTORY OF PRESENT ILLNESS: This is a 56-year-old lady with history of coronary artery disease, status post prior angioplasty of LAD, ischemic cardiomyopathy, AV sanaz reentrant tachycardia, status post ablation, and morbid obesity, who presented to Dr. Lawrence with recurrent episodes of back pain and left arm numbness, and given her cardiomyopathy and persistent symptoms, he advised her to undergo cardiac catheterization and has requested me to perform the same. The patient has been explained of risks, benefits and alternatives, understood and accepted. PROCEDURE NOTE: After obtaining informed consent, left heart catheterization and coronary angiogram were performed via the right radial artery using standard Tammy catheters. We obtained right radial artery using modified Seldinger technique, and a 6-Fijian sheath was placed uneventfully. We had to use a Glidewire to pass into the brachial artery and into the ascending aorta. The patient became vasovagal, bradycardic, and hypotensive. I had to give her 0.5 mg of atropine and started her on dopamine and she gradually both the heart rate and the blood pressures have recovered and the nausea that she had has improved. The patient received moderate conscious sedation. Total sedation time was 30 minutes. The patient received 5 mg of verapamil and 5000 units of heparin per protocol. A TR band was placed at the end of the procedure. The right coronary angiogram was obtained with 3.5 Tammy catheter. Hemodynamics were obtained using a pigtail catheter and left coronary artery was engaged using left Tammy catheter. FINDINGS: 1. Hemodynamics: Left ventricular end-diastolic pressure is 10 mm. There is no significant gradient across the aortic valve. 2. Left ventriculogram: Left ventriculogram is not performed. 3. Angiographic data: a.The right coronary artery is selectively engaged. It is a large dominant vessel and is free of significant stenosis. b.Left main coronary artery: Left main coronary artery is a normal-sized vessel and it is free of stenosis, divides into left anterior descending coronary artery and circumflex coronary artery. Circumflex coronary artery, which is a codominant vessel is free of significant stenosis. Left anterior descending coronary artery was previously stented in the midportion and the stent appears patent and the diagonal branch appears free of significant disease. CONCLUSION: Patent stent within the left anterior descending coronary artery. No significant obstructive disease involving the right coronary artery or circumflex coronary artery. PLAN: The patient's chest pain is not related to obstructive coronary artery disease. She has cardiomyopathy with severe LV dysfunction and she is to undergo AICD. MMODL / IJN: [id number] /
== END 2022-05-08 16:11 | disposition home or self-care (01) ==
LOC: CATHCVL 07:20
PROVIDERS: ATTEND Internal Medicine Cardiovascular Disease
DX: I25.10 Atherosclerotic heart disease of native coronary artery without angina pectoris (principal); E66.01 Morbid (severe) obesity due to excess calories; I25.5 Ischemic cardiomyopathy; I47.1 Supraventricular tachycardia
CPT/HCPCS: 80048; 85025; 93458; C1769 ×2; C1894; J2250; J2001; J0461; J3010; J1644; Q9967; J1265

== ENCOUNTER 2022-08-07 10:21 | Day surgery (SDC) | payer OTHER ==
[~2022-08-07 10:21] MED LIST changes: -ALPRAZolam 0.25 MG TAB PO PRN; -ALPRAZolam 0.5 MG TAB PO PRN; -ASPIRIN 325 MG TAB PO STA; -ATORVASTATIN 80 MG TAB PO STA; -HEPARIN SODIUM,PORCINE 10,000 UNIT in SODIUM CHLORIDE 0.9% 1,000 ML IRRIGATION PRN; -HEPARIN SODIUM,PORCINE 2,500 UNIT in SODIUM CHLORIDE 0.9% 250 ML IRRIGATION PRN; +LACTATED RINGERS 1,000 ML IV SCH; +LIDOCAINE 1% (10MG/ML) FOR IV START INTRADERMA PRN; -NITROGLYCERIN SL TABS 0.4 MG TAB SUBLINGUAL PRN; +SODIUM CHLORIDE 0.9% 1,000 ML IV SCH; -SODIUM CHLORIDE 0.9% 1,000 ML in EMPTY BAG 1 BAG IV SCH; +ceFAZolin 1 GM in SODIUM CHLORIDE 0.9% IRRIG BTL 250 ML IRRIGATION PRN
[2022-08-07] MEDS ORDERED: SODIUM CHLORIDE 0.9% 1,000 ML IV ONE (10:38)
[2022-08-07 11:01] VITALS: RESP 16; TEMP 98.1
[2022-08-07] MEDS ORDERED: PROPOFOL 10 MG/ML 20 ML VIAL IV ONE (12:02)
[2022-08-07] MEDS ORDERED: MIDAZOLAM 2 MG/2 ML VIAL ONE (12:02)
[2022-08-07] MEDS ORDERED: PHENYLEPHRINE-0.9% NACL SYG 1,000 MCG/10 ML SYRINGE ONE (12:02)
[2022-08-07] MEDS ORDERED: HYDROmorphone (PF) 1 MG/ML ONE (12:02)
[2022-08-07] MEDS ORDERED: fentaNYL (PF) 50 MCG/ML 2 ML AMP ONE (12:02)
[2022-08-07] MEDS ORDERED: KETAMINE 10 MG/ML 20 ML VIAL ONE (12:02)
[2022-08-07] MEDS ORDERED: IOPAMIDOL-370 100ML BTL INJ ONE (12:17)
[2022-08-07] MEDS ORDERED: LIDOCAINE 1% INJ 10MG/ML (30 ML VIAL-PF) SQ ONE (12:45)
[2022-08-07] MEDS ORDERED: VANCOMYCIN 1,500 MG in SODIUM CHLORIDE 0.9% 250 ML IVPB STA (12:47)
[2022-08-07] MEDS: VANCOMYCIN 1,500 MG in SODIUM CHLORIDE 0.9% 500 ML 500 ML IVPB ONE ×2 (12:56→13:00)
[2022-08-07] MEDS ORDERED: HYOSCYAMINE SULFATE 0.125 MG TAB PO PRN (13:59)
[2022-08-07] MEDS ORDERED: PROCHLORPERAZINE 10 MG TAB PO PRN (13:59)
[2022-08-07] MEDS ORDERED: ACETAMINOPHEN TAB 325 MG TAB PO PRN ×2 (14:01→14:02)
[2022-08-07] MEDS ORDERED: ACETAMINOPHEN IV (For NPO) 1,000 MG in EMPTY BAG 1 BAG IVPB ONE (14:02)
--- NOTE | 2022-08-07 14:13 | P.EPPROC ---
- EP Procedure Note Electrophysiology Procedure Note: Diagnosis Cardiomyopathy, chronic CAD, anterior wall NV, old Ischemic cardio myopathy that has not improved despite revascularization and guideline directed medical treatment Sinus Bradycardia, Procedure: Dual-chamber ICD implantation for management of risk of sudden cardiac / sinus bradycardia Result: Dual chamber ICD implantation, Medtronic cobalt DR MRI, and DF 4 Atrial lead: Medtronic 52 cm model #5076 active fix lead screwed in the right atrial appendage P waves 2.5 mV, pacing threshold 0.5 V at 0.4 ms and pacing impedance 513 ohms, 10 who test negative RV ICD lead: Single coil Medtronics ICD model number 6935M, 62 cm in length screwed in the RV apex R waves 15 mV, pacing threshold 0.5 V at 0.4 ms with a pacing impedance of 456 ohms Procedure details: Patient was brought to the EP lab in a fasting state. Written informed consent was obtained prior to the procedure. Options, pros and cons, benefits and risks and complications discussed with patient in detail prior to the procedure (shared decision making). Importance of continuing medical treatment emphasized. Alternatives discussed. Patient would like to proceed with dual-chamber ICD implant. Left upper extremity venogram performed. 15 mL IV dye injected in the left arm. Patent axillary/subclavian vein The left pectoral area was prepped and draped as a protocol. IV antibiotics administered 1% lidocaine was used for local anesthesia. A 4 cm incision was made parallel to the deltopectoral groove, about 1.5 cm medial to it. The incision was carried down to the level of the pectoralis muscle and the subfascial pocket was made. Hemostasis was assured. The axillary vein access was obtained. Appropriately sized into to see sheaths were placed. ICD lead implanted in the right ventricle and screwed in. ICD lead tested for threshold, sensing, impedances and tested with high output pacing for diaphragmatic stimulation Atrial lead placed in the right atrial appendage and tested for threshold, sensing, impedance, and tested with high output pacing. Phrenic nerve stimulation Lead secured to the underlying transverse muscle after removing sheaths . Pocket irrigated with antibiotic solution Leads connected to the biventricular ICD generator. Wound closed in 3 layers and dressed per protocol Dual ICD interrogated and programmed. Appropriate pacing parameters, antitachycardia therapies with antitachycardia pacing cardioversion defibrillations programmed. AAIR-DDDR 60-130 2 zones of therapy at 176 beats a minute and 214 beats a minute with appropriate antitachycardia pacing cardioversion and defibrillation [place] device all shocks at maximum output with a vector of BX-A Patient tolerated the procedure well without any acute complications. See scanned device report in EMR for lead details Defibrillation level testing Atrial fibrillation was induced at 50 Hz stimulation Appropriately detected without any dropouts and successfully internally defibrillated with 10 J shock Charge to 1.9 seconds shocking impedance 79 ohms no post shock noise Extended procedure duration Patient has increased body mass with a large for pectoral fat This is a very deep pocket and required an extended period time to remove the extra adipose tissue, obtained hemostasis and make a subfascial pocket
--- NOTE | 2022-08-07 15:20 | XR ---
EXAMINATION TYPE: XR chest 1V portable DATE OF EXAM: 08/07/2022 3:04 PM COMPARISON: Chest radiographs from 02/11/2021 TECHNIQUE: XR chest 1V portable Portable AP radiograph of the chest. CLINICAL INDICATION:Female, 56 years old with history of Lead placement check; FINDINGS: Lungs/Pleura: There is no evidence of pleural effusion, focal consolidation, or pneumothorax. Pulmonary vascularity: Unremarkable. Heart/mediastinum: Cardiomediastinal silhouette is enlarged and stable. Two lead cardiac conduction d evice overlying the left hemithorax with lead tips projecting over the right ventricle and right atri um. Musculoskeletal: No acute osseous pathology. IMPRESSION: Interval placement of left chest dual-lead cardiac pacemaker device. No pneumothorax.
[2022-08-07 16:52] VITALS: PULSE 60
[2022-08-07 17:19] VITALS: BP 117/65
[2022-08-07] MEDS ORDERED: SACUBITRIL/VALSARTAN 49 MG-51 MG TABLET PO SCH (21:00)
[2022-08-07] MEDS ORDERED: FAMOTIDINE 20 MG TAB PO SCH (21:00)
[2022-08-07] MEDS ORDERED: RIVAROXABAN 2.5 MG TABLET PO SCH (21:00)
[2022-08-07] MEDS ORDERED: carvediloL 12.5 MG TAB PO SCH (21:00)
[2022-08-08] MEDS ORDERED: MAGNESIUM OXIDE 400 MG TAB PO SCH (09:00)
[2022-08-08] MEDS ORDERED: ATORVASTATIN 80 MG TAB PO SCH (09:00)
[2022-08-08] MEDS ORDERED: ASPIRIN 81 MG PO SCH (09:00)
[2022-08-08] MEDS ORDERED: SPIRONOLACTONE 25 MG TAB PO SCH (09:00)
[2022-08-08] MEDS ORDERED: EZETIMIBE 10 MG TAB PO SCH (09:00)
== END 2022-08-07 17:30 | disposition home or self-care (01) ==
LOC: CATHEP 10:21
PROVIDERS: ATTEND Internal Medicine Clinical Cardiac Electrophysiology
DX: I42.9 Cardiomyopathy, unspecified (principal); I25.2 Old myocardial infarction; I10 Essential (primary) hypertension; E78.5 Hyperlipidemia, unspecified; I25.10 Atherosclerotic heart disease of native coronary artery without angina pectoris; Z82.49 Family history of ischemic heart disease and other diseases of the circulatory system; K21.9 Gastro-esophageal reflux disease without esophagitis; Z88.8 Allergy status to other drugs, medicaments and biological substances; Z95.5 Presence of coronary angioplasty implant and graft; Z79.899 Other long term (current) drug therapy; Z95.0 Presence of cardiac pacemaker
CPT/HCPCS: 93641; 33249; 71045; C1769 ×3; C1721; C1892 ×2; C1898; C1895; S0183; J2250; J3370; J0690; J2001; J3010; J1170; J0131; J2370; J2704; Q9967

== ENCOUNTER → 2023-09-24 | Outpatient (CLI) | payer OTHER ==
[2023-09-24 14:51] LABS: Basophils # (A) 0.06 X 10*3/uL (0.00-0.10); Basophils % (A) 0.5 %; Eosinophils # (A) 0.27 X 10*3/uL (0.04-0.35); Eosinophils % (A) 2.1 %; HCT 38.7 % (37.2-46.3); HGB 12.6 g/dL (12.0-15.0); Lymphocytes % (A) 32.2 %; MCHC 32.6 g/dL (32.0-37.0); MCV 95.1 FL (80.0-97.0); Mean Platelet Volume 10.1 FL (9.5-12.2); Monocytes # (A) 0.83 X 10*3/uL (0.20-1.00); Monocytes % (A) 6.5 %; NRBC Per 100 WBC 0 X 10*3/uL (0.00-0.01); Neutrophils # (A) 7.43 X 10*3/uL (1.80-7.70); Neutrophils % (A) 58.4 %; Platelet Count 323 X 10*3/uL (140-440); RBC 4.07 X 10*6/uL (4.10-5.20); RDW 13.7 % (11.5-14.5); WBC 12.73 X 10*3/uL (4.50-10.00)
[2023-09-24 16:07] LABS: ALT 14 U/L (8-44); AST 19 U/L (13-35); Albumin 4.2 g/dL (3.8-4.9); Alkaline Phosphatase 103 U/L (41-126); BUN/Creat Ratio 18.44 Ratio (12.00-20.00); Blood Urea Nitrogen 16.6 mg/dL (9.0-27.0); Calcium 9.2 mg/dL (8.7-10.3); Carbon Dioxide 22.5 mmol/L (21.6-31.8); Chloride 104 mmol/L (96-109); Glucose 104 mg/dL (70-110); Potassium 4.1 mmol/L (3.5-5.5); Sodium 140 mmol/L (135-145); Total Bilirubin 0.3 mg/dL (0.3-1.2); Total Protein 7.2 g/dL (6.2-8.2)
== END | disposition home or self-care (01) ==
LOC: LABWHC1 08:32
PROVIDERS: ATTEND Internal Medicine Gastroenterology
DX: E66.01 Morbid (severe) obesity due to excess calories (principal); K50.90 Crohn's disease, unspecified, without complications; I10 Essential (primary) hypertension; K52.9 Noninfective gastroenteritis and colitis, unspecified
CPT/HCPCS: 36415; 80053; 83993; 85025; 86140; 86480

== ENCOUNTER 2023-11-15 16:11 | Emergency (ER) | payer OTHER ==
--- NOTE | 2023-11-15 16:45 | XR ---
EXAMINATION TYPE: XR chest 2V DATE OF EXAM: 11/15/2023 COMPARISON: 08/07/2022 HISTORY: Shortness of breath TECHNIQUE: Frontal and lateral views of the chest are obtained. FINDINGS: Scattered senescent parenchymal changes noted. Hyperinflation compatible with COPD. No evidence for infiltrate. No evidence for atelectasis. Dual-lead pacer is in place. Heart size is stable. Mediastinal structures are stable and grossly unremarkable. No evidence for hilar prominence. Degenerative changes dorsal spine. IMPRESSION: 1. No evidence for acute pulmonary disease.
--- NOTE | 2023-11-15 16:51 | ED ---
General Adult HPI - General Chief complaint: Chest Pain Stated complaint: Chest pain Time Seen by Provider: 11/15/23 16:13 Source: patient, EMS, RN notes reviewed, old records reviewed Mode of arrival: EMS - History of Present Illness Initial comments: 58-year-old female presents with right-sided shoulder pain radiating into the jaw. Patient was concerned that this could be related to her heart. This occurred earlier in the day. She had no central chest pain. No dyspnea. No cough or fever. No abdominal pain no vomiting. Pain is resolved at this time. She denies any injury to the shoulder or back. - Related Data Home Medications Medication Instructions Recorded Confirmed Adalimumab [Humira(Cf) Pen] 40 mg SQ MO 01/11/21 11/15/23 Alendronate Sodium 70 mg PO FR 01/11/21 11/15/23 Atorvastatin [Lipitor] 80 mg PO DAILY 01/11/21 11/15/23 Diphenoxylate HCl/Atropine 1 tab PO QID 01/11/21 11/15/23 [Lomotil 2.5-0.025 mg Tablet] Ergocalciferol [Vitamin D2 (1250 1,250 mcg PO WE 01/11/21 11/15/23 Mcg = 91679 Iu)] Magnesium Oxide 400 mg PO DAILY 01/11/21 11/15/23 Prochlorperazine [Compazine] 10 mg PO Q8H PRN 01/11/21 11/15/23 Spironolactone [Aldactone] 25 mg PO DAILY 01/11/21 11/15/23 Triamcinolone 0.5% Cream [Kenalog 1 applic TOPICAL QID 01/11/21 11/15/23 0.5% Cream] buPROPion HCL [buPROPion HCL SR] 150 mg PO BID 01/11/21 11/15/23 busPIRone HCL 15 mg PO BID 01/11/21 11/15/23 Ezetimibe [Zetia] 10 mg PO DAILY 05/03/22 11/15/23 Famotidine [Pepcid] 20 mg PO BID 05/03/22 11/15/23 Rivaroxaban [Xarelto] 2.5 mg PO BID 05/03/22 11/15/23 Sacubitril/Valsartan [Entresto 49 1 tab PO BID 05/03/22 11/15/23 mg-51 mg Tablet] carvediloL [Coreg] 12.5 mg PO BID 05/03/22 11/15/23 Acetaminophen [Tylenol 8 Hour] 1,300 mg PO Q8H PRN 11/15/23 11/15/23 Baclofen [Lioresal] 20 mg PO TID 11/15/23 11/15/23 Dicyclomine [Bentyl] 10 mg PO QID 11/15/23 11/15/23 Gabapentin [Neurontin] 400 mg PO TID 11/15/23 11/15/23 Topiramate [Topiramate ER] 25 mg PO DAILY 11/15/23 11/15/23 Previous Rx's Medication Instructions Recorded Aspirin 81 mg PO DAILY 30 Days #30 chew 01/16/21 Allergies Allergy/AdvReac Type Severity Reaction Status Date / Time ondansetron [From Zofran] Allergy Anaphylaxis Verified 11/15/23 17:15 Review of Systems ROS Statement: Those systems with pertinent positive or pertinent negative responses have been documented in the HPI. ROS Other: All systems not noted in ROS Statement are negative. Past Medical History Past Medical History: Fibromyalgia, GERD/Reflux, Hyperlipidemia, Hypertension, Osteoarthritis (OA) Additional Past Medical History / Comment(s): Crohns, prolonged qt,DDD, SEE DR. 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, COLONOSCOPY, Past Anesthesia/Blood Transfusion Reactions: No Reported Reaction Past Psychological History: Anxiety, Depression Smoking Status: Former smoker Past Alcohol Use History: None Reported Past Drug Use History: None Reported - Past Family History Mother Family Medical History: Cancer, Hypertension Father Family Medical History: Chest Pain / Angina, Diabetes Mellitus Additional Family Medical History / Comment(s): crohns General Exam General appearance: alert, in no apparent distress Head exam: Present: atraumatic, normocephalic Eye exam: Present: normal appearance, PERRL ENT exam: Present: normal exam Neck exam: Present: normal inspection. Absent: tenderness, meningismus Respiratory exam: Present: normal lung sounds bilaterally. Absent: respiratory distress, wheezes Cardiovascular Exam: Present: regular rate, normal rhythm GI/Abdominal exam: Present: soft. Absent: distended, tenderness Extremities exam: Present: normal inspection, normal capillary refill. Absent: pedal edema Neurological exam: Present: alert, oriented X3, CN II-XII intact. Absent: motor sensory deficit Skin exam: Present: warm, dry, intact. Absent: cyanosis, diaphoretic Course Vital Signs 11/15/23 11/15/23 11/15/23 16:12 16:19 18:00 Pulse Rate 70 70 Pulse Rate [ 67 Pulse Oximetery ] Respiratory 18 16 Rate Blood Pressure 103/72 106/72 O2 Sat by Pulse 92 L 93 L Oximetry Medical Decision Making - Medical Decision Making Was pt. sent in by a medical professional or institution ([facility], [employer], urgent care, hospital, or half-way...) When possible be specific @ -No Did you speak to anyone other than the patient for history (EMS, parent, family, police, friend...)? What history was obtained from this source @ -No Did you review nursing and triage notes (agree or disagree)? Why? @ -I reviewed and agree with nursing and triage notes Were old charts reviewed (outside hosp., previous admission, EMS record, old EKG, old radiological studies, urgent care reports/EKG's, half-way records)? Report findings @ -No old charts were reviewed Differential Chest Pain: Stable Angina, Unstable Angina, STEMI, NSTEMI Aortic Dissection, Pneumothorax, Musculoskeletal, Esophageal Spasm GERD, Cholecystitis, Pancreatitis, Zoster, this is not meant to be an all-inclusive list. Differential Musculoskeletal Muscular strain, contusion, ligament sprain, fracture, arthritis, septic arthritis, bursitis, cellulitis, muscle spasm, nerve compression, DVT, arterial occlusion, herpes zoster, electrolyte abnormality, tumor.... This is not meant to be in all inclusive list EKG interpreted by me (3pts min.)., @Sinus rhythm rate of 65, KS interval 172, QRS duration 98, QTc [address] segment elevation. X-rays interpreted by me (1pt min.). @ -Chest x-ray clear, no acute findings CT interpreted by me (1pt min.). @ -None done U/S interpreted by me (1pt. min.). @ -None done What testing was considered but not performed or refused? (CT, X-rays, U/S, labs)? Why? @ -None What meds were considered but not given or refused? Why? @ -None Did you discuss the management of the patient with other professionals (professionals i.e. , PA, [employer], lab, RT, psych nurse, social work manager, mercerizing range feeder, teacher, branch officer, caser in)? Give summary @ -No Was smoking cessation discussed for >3mins.? @ -No Was critical care preformed (if so, how long)? @ -No Were there social determinants of health that impacted care today? How? (Homelessness, low income, unemployed, alcoholism, drug addiction, transportati on, low edu. Level, literacy, decrease access to med. care, halfway, rehab)? @ -No Was there de-escalation of care discussed even if they declined (Discuss DNR or withdrawal of care, Hospice)? DNR status @ -No What co-morbidities impacted this encounter? (DM, HTN, Smoking, COPD, CAD, Cancer, CVA, ARF, Chemo, Hep., AIDS, mental health diagnosis, sleep apnea, morbid obesity)? @ -Coronary artery disease Was patient admitted / discharged? Hospital course, mention meds given and route, prescriptions, significant lab abnormalities, going to OR and other pertinent info. @ -[58-year-old female presenting with an episode of right shoulder pain radiating into the jaw. Patient was concerned this could be related to her heart. The symptom is currently resolved and she has no pain whatsoever. No dy spnea. No vomiting. No cough. EKG is sinus without ST segment elevation. Chest x-ray is clear. She has normal CBC, normal CMP, negative initial troponin. I did plan to obtain a second troponin on this patient but she declined wishing to be discharged from the emergency department. 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 Patient is informed of the risks and is eager for discharge. Undiagnosed new problem with uncertain prognosis? @ -No Drug Therapy requiring intensive monitoring for toxicity (Heparin, Nitro, Ins ulin, Cardizem)? @ -No Were any procedures done? @ -No Diagnosis/symptom? @ -Atraumatic right shoulder pain Acute, or Chronic, or Acute on Chronic? @ -Acute Uncomplicated (without systemic symptoms) or Complicated (systemic symptoms)? @ -Default Side effects of treatment? @ -No Exacerbation, Progression, or Severe Exacerbation? @ -No Poses a threat to life or bodily function? How? (Chest pain, [place], [place], pneumonia, PE, COPD, DKA, ARF, appy, cholecystitis, CVA, Diverticulitis, Homicidal, Myriam cidal, threat to staff... and all critical care pts) @ -Low risk at this time - Lab Data Result diagrams: 11/15/23 16:20 11/15/23 16:20 Lab Results 11/15/23 11/15/23 11/15/23 Range/Units 16:20 16:20 16:20 WBC 9.2 (3.8-10.6) k/uL RBC 4.21 (3.80-5.40) m/uL Hgb 12.8 (11.4-16.0) gm/dL Hct 41.6 (34.0-46.0) % MCV 98.8 (80.0-100.0) fL MCH 30.5 (25.0-35.0) pg MCHC 30.8 L (31.0-37.0) g/dL RDW 13.6 (11.5-15.5) % Plt Count 344 (150-450) k/uL MPV 7.6 Neutrophils % 55 % Lymphocytes % 36 % Monocytes % 4 % Eosinophils % 3 % Basophils % 1 % Neutrophils # 5.1 (1.3-7.7) k/uL Lymphocytes # 3.3 (1.0-4.8) k/uL Monocytes # 0.4 (0-1.0) k/uL Eosinophils # 0.3 (0-0.7) k/uL Basophils # 0.0 (0-0.2) k/uL PT 11.4 (10.0-12.5) sec INR 1.1 (<1.2) APTT 31.9 H (22.0-30.0) sec Sodium 139 (137-145) mmol/L Potassium 4.4 (3.5-5.1) mmol/L Chloride 108 H (98-107) mmol/L Carbon Dioxide 24 (22-30) mmol/L Anion Gap 7 mmol/L BUN 19 H (7-17) mg/dL Creatinine 1.19 H (0.52-1.04) mg/dL Est GFR (CKD-EPI)AfAm 58 (>60 ml/min/1.73 sqM) Est GFR (CKD-EPI)NonAf 50 (>60 ml/min/1.73 sqM) Glucose 117 H (74-99) mg/dL Calcium 10.3 H (8.4-10.2) mg/dL Magnesium 2.1 (1.6-2.3) mg/dL Total Bilirubin 0.5 (0.2-1.3) mg/dL AST 19 (14-36) U/L ALT 15 (4-34) U/L Alkaline Phosphatase 80 (38-126) U/L Troponin I (0.000-0.034) ng/mL Total Protein 7.3 (6.3-8.2) g/dL Albumin 4.2 (3.5-5.0) g/dL 11/15/23 Range/Units 16:20 WBC (3.8-10.6) k/uL RBC (3.80-5.40) m/uL Hgb (11.4-16.0) gm/dL Hct (34.0-46.0) % MCV (80.0-100.0) fL MCH (25.0-35.0) pg MCHC (31.0-37.0) g/dL RDW (11.5-15.5) % Plt Count (150-450) k/uL MPV Neutrophils % % Lymphocytes % % Monocytes % % Eosinophils % % Basophils % % Neutrophils # (1.3-7.7) k/uL Lymphocytes # (1.0-4.8) k/uL Monocytes # (0-1.0) k/uL Eosinophils # (0-0.7) k/uL Basophils # (0-0.2) k/uL PT (10.0-12.5) sec INR (<1.2) APTT (22.0-30.0) sec Sodium (137-145) mmol/L Potassium (3.5-5.1) mmol/L Chloride (98-107) mmol/L Carbon Dioxide (22-30) mmol/L Anion Gap mmol/L BUN (7-17) mg/dL Creatinine (0.52-1.04) mg/dL Est GFR (CKD-EPI)AfAm (>60 ml/min/1.73 sqM) Est GFR (CKD-EPI)NonAf (>60 ml/min/1.73 sqM) Glucose (74-99) mg/dL Calcium (8.4-10.2) mg/dL Magnesium (1.6-2.3) mg/dL Total Bilirubin (0.2-1.3) mg/dL AST (14-36) U/L ALT (4-34) U/L Alkaline Phosphatase (38-126) U/L Troponin I <0.012 (0.000-0.034) ng/mL Total Protein (6.3-8.2) g/dL Albumin (3.5-5.0) g/dL Disposition Clinical Impression: Shoulder pain Disposition: HOME SELF-CARE Condition: Fair Instructions (If sedation given, give patient instructions): Shoulder Pain (ED) Is patient prescribed a controlled substance at d/c from ED?: No Referrals: Salvador Kelley DO [Primary Care Provider] - 1-2 days Time of Disposition: 18:36
[2023-11-15 17:01] LABS: Basophils % (A) 1 %; Eosinophils # (A) 0.3 k/uL (0-0.7); Eosinophils % (A) 3 %; HCT 41.6 % (34.0-46.0); HGB 12.8 gm/dL (11.4-16.0); Lymphocytes # (A) 3.3 k/uL (1.0-4.8); Lymphocytes % (A) 36 %; MCH 30.5 pg (25.0-35.0); MCHC 30.8 g/dL (31.0-37.0); MCV 98.8 fL (80.0-100.0); Mean Platelet Volume 7.6; Monocytes # (A) 0.4 k/uL (0-1.0); Monocytes % (A) 4 %; Neutrophils # (A) 5.1 k/uL (1.3-7.7); Neutrophils % (A) 55 %; Platelet Count 344 k/uL (150-450); RBC 4.21 m/uL (3.80-5.40); RDW 13.6 % (11.5-15.5); WBC 9.2 k/uL (3.8-10.6)
[2023-11-15 17:13] LABS: ALT 15 U/L (4-34); AST 19 U/L (14-36); African American GFR (CKD) 58 (>60 ml/min/1.73 sqM); Albumin 4.2 g/dL (3.5-5.0); Alkaline Phosphatase 80 U/L (38-126); Anion Gap 7 mmol/L; Blood Urea Nitrogen 19 mg/dL (7-17); Calcium 10.3 mg/dL (8.4-10.2); Carbon Dioxide 24 mmol/L (22-30); Chloride 108 mmol/L (98-107); Glucose 117 mg/dL (74-99); Magnesium 2.1 mg/dL (1.6-2.3); Non-African American GFR(CKD) 50 (>60 ml/min/1.73 sqM); Potassium 4.4 mmol/L (3.5-5.1); Sodium 139 mmol/L (137-145); Total Bilirubin 0.5 mg/dL (0.2-1.3); Total Protein 7.3 g/dL (6.3-8.2)
[2023-11-15 17:17] LABS: INR 1.1 (<1.2); Partial Thromboplastin Time 31.9 sec (22.0-30.0); Prothrombin Time 11.4 sec (10.0-12.5)
[2023-11-15 18:58] VITALS: BP 122/85; PULSE 75; RESP 18; TEMP 98.4
== END 2023-11-15 18:58 | disposition home or self-care (01) ==
LOC: EC 16:11
DX: M25.511 Pain in right shoulder (principal); Z87.891 Personal history of nicotine dependence; Z88.8 Allergy status to other drugs, medicaments and biological substances; Z86.79 Personal history of other diseases of the circulatory system
CPT/HCPCS: 36415; 71046; 80053; 83735; 84484; 85025; 85610; 85730; 93005; 99283

== ENCOUNTER 2024-02-02 12:51 | Observation (INO) | payer OTHER ==
[2024-02-02] MEDS: NALOXONE 0.4 MG/ML 1 ML VIAL IVP STA ×2 (12:53→12:55)
[2024-02-02 13:20] LABS: VBG PH 7.29 (7.31-7.41)
[2024-02-02 13:21] LABS: Glucose,Whole Blood 108 mg/dL (70-110)
[2024-02-02 13:21] LABS: Basophils % (A) 0 %; Eosinophils # (A) 0.1 k/uL (0-0.7); Eosinophils % (A) 1 %; HCT 39.6 % (34.0-46.0); Lymphocytes # (A) 3.3 k/uL (1.0-4.8); Lymphocytes % (A) 34 %; MCH 31.8 pg (25.0-35.0); MCHC 32.7 g/dL (31.0-37.0); MCV 97.2 fL (80.0-100.0); Mean Platelet Volume 7.8; Monocytes # (A) 0.4 k/uL (0-1.0); Monocytes % (A) 4 %; Neutrophils # (A) 5.8 k/uL (1.3-7.7); Neutrophils % (A) 59 %; Platelet Count 259 k/uL (150-450); RBC 4.08 m/uL (3.80-5.40); RDW 13.4 % (11.5-15.5); WBC 9.8 k/uL (3.8-10.6)
--- NOTE | 2024-02-02 13:36 | ED ---
General Adult HPI - General Chief complaint: Altered Mental Status Stated complaint: Altered Mental Status Time Seen by Provider: 02/02/24 12:56 Source: patient, RN notes reviewed, old records reviewed Mode of arrival: EMS - History of Present Illness Initial comments: 58-year-old female presenting with 24 hours of confusion and lethargy. Patient patient brought in by paramedics, history is quite limited. The patient is able to answer simple questions but is not completely alert and oriented. She denies headache. Denies chest pain. Denies fever. She is on multiple sedating medications. She denies narcotic use or illicit drug use. Denies alcohol. - Related Data Home Medications Medication Instructions Recorded Confirmed Adalimumab [Humira(Cf) Pen] 40 mg SQ MO 01/11/21 11/15/23 Alendronate Sodium 70 mg PO FR 01/11/21 11/15/23 Atorvastatin [Lipitor] 80 mg PO DAILY 01/11/21 11/15/23 Diphenoxylate HCl/Atropine 1 tab PO QID 01/11/21 11/15/23 [Lomotil 2.5-0.025 mg Tablet] Ergocalciferol [Vitamin D2 (1250 1,250 mcg PO WE 01/11/21 11/15/23 Mcg = 56709 Iu)] Magnesium Oxide 400 mg PO DAILY 01/11/21 11/15/23 Prochlorperazine [Compazine] 10 mg PO Q8H PRN 01/11/21 11/15/23 Spironolactone [Aldactone] 25 mg PO DAILY 01/11/21 11/15/23 Triamcinolone 0.5% Cream [Kenalog 1 applic TOPICAL QID 01/11/21 11/15/23 0.5% Cream] buPROPion HCL [buPROPion HCL SR] 150 mg PO BID 01/11/21 11/15/23 busPIRone HCL 15 mg PO BID 01/11/21 11/15/23 Ezetimibe [Zetia] 10 mg PO DAILY 05/03/22 11/15/23 Famotidine [Pepcid] 20 mg PO BID 05/03/22 11/15/23 Rivaroxaban [Xarelto] 2.5 mg PO BID 05/03/22 11/15/23 Sacubitril/Valsartan [Entresto 49 1 tab PO BID 05/03/22 11/15/23 mg-51 mg Tablet] carvediloL [Coreg] 12.5 mg PO BID 05/03/22 11/15/23 Acetaminophen [Tylenol 8 Hour] 1,300 mg PO Q8H PRN 11/15/23 11/15/23 Baclofen [Lioresal] 20 mg PO TID 11/15/23 11/15/23 Dicyclomine [Bentyl] 10 mg PO QID 11/15/23 11/15/23 Gabapentin [Neurontin] 400 mg PO TID 11/15/23 11/15/23 Topiramate [Topiramate ER] 25 mg PO DAILY 11/15/23 11/15/23 Previous Rx's Medication Instructions Recorded Aspirin 81 mg PO DAILY 30 Days #30 chew 01/16/21 Allergies Allergy/AdvReac Type Severity Reaction Status Date / Time ondansetron [From Zofran] Allergy Anaphylaxis Verified 02/02/24 13:12 Review of Systems ROS Statement: Those systems with pertinent positive or pertinent negative responses have been documented in the HPI. ROS Other: All systems not noted in ROS Statement are negative. Past Medical History Past Medical History: Fibromyalgia, GERD/Reflux, Hyperlipidemia, Hypertension, Osteoarthritis (OA) Additional Past Medical History / Comment(s): Crohns, prolonged qt,DDD, SEE DR. 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, COLONOSCOPY, Past Anesthesia/Blood Transfusion Reactions: No Reported Reaction Past Psychological History: Anxiety, Depression Smoking Status: Former smoker Past Alcohol Use History: None Reported Past Drug Use History: None Reported - Past Family History Mother Family Medical History: Cancer, Hypertension Father Family Medical History: Chest Pain / Angina, Diabetes Mellitus Additional Family Medical History / Comment(s): crohns General Exam General appearance: in no apparent distress, lethargic Head exam: Present: atraumatic, normocephalic Eye exam: Present: normal appearance, PERRL ENT exam: Present: mucous membranes dry Neck exam: Present: normal inspection. Absent: tenderness, meningismus Respiratory exam: Present: normal lung sounds bilaterally. Absent: respiratory distress, wheezes Cardiovascular Exam: Present: regular rate, normal rhythm GI/Abdominal exam: Present: soft. Absent: distended, tenderness, guarding Extremities exam: Present: normal inspection, normal capillary refill Neurological exam: Present: alert. Absent: oriented X3 (Very slow to respond), motor sensory deficit Course Vital Signs 02/02/24 02/02/24 02/02/24 12:53 12:55 13:06 Temperature 96.2 F L Pulse Rate 62 Respiratory 12 12 14 Rate Blood Pressure 146/78 O2 Sat by Pulse 99 Oximetry 02/02/24 02/02/24 02/02/24 13:15 13:30 13:45 Temperature Pulse Rate 56 L 55 L 58 L Respiratory 10 L 7 L 8 L Rate Blood Pressure 146/78 112/82 116/78 O2 Sat by Pulse 100 100 99 Oximetry 02/02/24 02/02/24 14:00 14:15 Temperature Pulse Rate 62 55 L Respiratory 10 L 10 L Rate Blood Pressure 148/87 150/82 O2 Sat by Pulse 96 99 Oximetry Medical Decision Making - Medical Decision Making Was pt. sent in by a medical professional or institution (, PA, CONTACT L[employer] FLASHING PUNCHER, urgent care, hospital, or half-way...) When possible be specific @ -No Did you speak to anyone other than the patient for history (EMS, parent, family, police, friend...)? What history was obtained from this source @ -No Did you review nursing and triage notes (agree or disagree)? Why? @ -I reviewed and agree with nursing and triage notes Were old charts reviewed (outside hosp., previous admission, EMS record, old EKG, old radiological studies, urgent care reports/EKG's, half-way records)? Report findings @ -No old charts were reviewed Differential Altered Mental Status: Hypoglycemia, DKA, hypercapnia, ETOH, overdose, CO poisoning, trauma, myxedema coma, HTN encephalopathy, infection, encephalitis, psychosis, intercranial hemorrhage, hepatic encephalopathy, meningitis, CVA, this is not meant to be an all-inclusive list EKG interpreted by me (3pts min.). @ -Atrial paced rhythm rate of 61, VT interval 200, QRS duration 100, QTc 433 X-rays interpreted by me (1pt min.). @ -Chest x-ray negative for acute cardiopulmonary findings. CT interpreted by me (1pt min.). @ -[CT brain is negative for intracranial hemorrhage or mass effect U/S interpreted by me (1pt. min.). @ -None done What testing was considered but not performed or refused? (CT, X-rays, U/S, labs)? Why? @ -None What meds were considered but not given or refused? Why? @ -None Did you discuss the management of the patient with other professionals (professionals i.e. DrHerberth, PA, CONTACT [employer] FL[employer]ING [employer]ER, lab, RT, psych nurse, psychiatric social worker supervisor, facility rehab director, teacher, information systems security officer, adult protective caseworker)? Give summary @ -No Was smoking cessation discussed for >3mins.? @ -No Was critical care preformed (if so, how long)? @ -No Were there social determinants of health that impacted care today? How? (Homelessness, low income, unemployed, alcoholism, drug addiction, transportation, low edu. Level, literacy, decrease access to med. care, longterm, rehab)? @ -No Was there de-escalation of care discussed even if they declined (Discuss DNR or withdrawal of care, Hospice)? DNR status @ -No What co-morbidities impacted this encounter? (DM, HTN, Smoking, COPD, CAD, Cancer, CVA, ARF, Chemo, Hep., AIDS, mental health diagnosis, sleep apnea, morbid obesity)? @ -Diabetes, polypharmacy, CHF Was patient admitted / discharged? Hospital course, mention meds given and route, prescriptions, significant lab abnormalities, going to OR and other pertinent info. @ 58-year-old female presenting with altered mental status over the past 20 to 24 hours. Patient is arousable with sternal rub and able to answer questions. She is quite lethargic. She is moving all extremities symmetrically. She has a symmetric smile and clear speech when she does speak. Pupils are equal round and reactive to light. Workup is initiated including laboratory testing, head CT, chest x-ray. Patient has normal laboratory testing, negative head CT, clear chest x-ray. Urinalysis and urine drug screen are negative. Tylenol salicylate and alcohol levels are negative. Patient is on multiple sedating medications. I do feel this is a possible cause of her altered mental status and lethargy. She will require admission for observation. Medications will be held awaiting reevaluation of level consciousness and mental status. Undiagnosed new problem with uncertain prognosis? @ -No Drug Therapy requiring intensive monitoring for toxicity (Heparin, Nitro, Insulin, Cardizem)? @ -No Were any procedures done? @ -No Diagnosis/symptom? @ -Altered Mental status Acute, or Chronic, or Acute on Chronic? @ acute Uncomplicated (without systemic symptoms) or Complicated (systemic symptoms)? @ -Default Side effects of treatment? @ -No Exacerbation, Progression, or Severe Exacerbation? @ -No Poses a threat to life or bodily function? How? (Chest pain, [place], MT, pneumonia, PE, COPD, DKA, ARF, appy, cholecystitis, CVA, Diverticulitis, Homicidal, Suici boogie, threat to staff... and all critical care pts) @ -yes, aMS - Lab Data Result diagrams: 02/02/24 13:14 02/02/24 13:14 Lab Results 02/02/24 02/02/24 02/02/24 Range/Units 13:14 13:14 13:14 WBC 9.8 (3.8-10.6) k/uL RBC 4.08 (3.80-5.40) m/uL Hgb 13.0 (11.4-16.0) gm/dL Hct 39.6 (34.0-46.0) % MCV 97.2 (80.0-100.0) fL MCH 31.8 (25.0-35.0) pg MCHC 32.7 (31.0-37.0) g/dL RDW 13.4 (11.5-15.5) % Plt Count 259 (150-450) k/uL MPV 7.8 Neutrophils % 59 % Lymphocytes % 34 % Monocytes % 4 % Eosinophils % 1 % Basophils % 0 % Neutrophils # 5.8 (1.3-7.7) k/uL Lymphocytes # 3.3 (1.0-4.8) k/uL Monocytes # 0.4 (0-1.0) k/uL Eosinophils # 0.1 (0-0.7) k/uL Basophils # 0.0 (0-0.2) k/uL PT 10.8 (10.0-12.5) sec INR 1.0 (<1.2) APTT 34.4 H (22.0-30.0) sec VBG pH (7.31-7.41) VBG pCO2 (37-51) mmHg VBG HCO3 (24-28) mmol/L Sodium (137-145) mmol/L Potassium (3.5-5.1) mmol/L Chloride (98-107) mmol/L Carbon Dioxide (22-30) mmol/L Anion Gap mmol/L BUN (7-17) mg/dL Creatinine (0.52-1.04) mg/dL Est GFR (CKD-EPI)AfAm (>60 ml/min/1.73 sqM) Est GFR (CKD-EPI)NonAf (>60 ml/min/1.73 sqM) Glucose (74-99) mg/dL POC Glucose (mg/dL) (70-110) mg/dL POC Glu Grocery Clerk Marking ID Calcium (8.4-10.2) mg/dL Total Bilirubin (0.2-1.3) mg/dL AST (14-36) U/L ALT (4-34) U/L Alkaline Phosphatase (38-126) U/L Ammonia (<30) umol/L Troponin I (0.000-0.034) ng/mL Total Protein (6.3-8.2) g/dL Albumin (3.5-5.0) g/dL Urine Color Yellow Urine Appearance Clear (Clear) Urine pH 5.5 (5.0-8.0) Ur Specific [place] 1.027 (1.001-1.035) Urine Protein Trace H (Negative) Urine Glucose (UA) 4+ H (Negative) Urine Ketones Negative (Negative) Urine Blood Negative (Negative) Urine Nitrite Negative (Negative) Urine Bilirubin Negative (Negative) Urine Urobilinogen <2.0 (<2.0) mg/dL Ur Leukocyte Esterase Negative (Negative) Salicylates mg/dL Urine Opiates Screen Not Detected (NotDetected) Ur Oxycodone Screen Not Detected (NotDetected) Urine Methadone Screen Not Detected (NotDetected) Acetaminophen ug/mL Ur Barbiturates Screen Not Detected (NotDetected) U Tricyclic Antidepress Not Detected (NotDetected) Ur Phencyclidine Scrn Not Detected (NotDetected) Ur Amphetamines Screen Not Detected (NotDetected) U Methamphetamines Scrn Not Detected (NotDetected) U Benzodiazepines Scrn Not Detected (NotDetected) Urine Cocaine Screen Not Detected (NotDetected) U Marijuana (THC) Screen Not Detected (NotDetected) Serum Alcohol mg/dL 02/02/24 02/02/24 02/02/24 Range/Units 13:14 13:14 13:14 WBC (3.8-10.6) k/uL RBC (3.80-5.40) m/uL Hgb (11.4-16.0) gm/dL Hct (34.0-46.0) % MCV (80.0-100.0) fL MCH (25.0-35.0) pg MCHC (31.0-37.0) g/dL RDW (11.5-15.5) % Plt Count (150-450) k/uL MPV Neutrophils % % Lymphocytes % % Monocytes % % Eosinophils % % Basophils % % Neutrophils # (1.3-7.7) k/uL Lymphocytes # (1.0-4.8) k/uL Monocytes # (0-1.0) k/uL Eosinophils # (0-0.7) k/uL Basophils # (0-0.2) k/uL PT (10.0-12.5) sec INR (<1.2) APTT (22.0-30.0) sec VBG pH 7.29 L (7.31-7.41) VBG pCO2 48 (37-51) mmHg VBG HCO3 23 L (24-28) mmol/L Sodium 145 (137-145) mmol/L Potassium 4.2 (3.5-5.1) mmol/L Chloride 113 H (98-107) mmol/L Carbon Dioxide 23 (22-30) mmol/L Anion Gap 9 mmol/L BUN 17 (7-17) mg/dL Creatinine 1.14 H (0.52-1.04) mg/dL Est GFR (CKD-EPI)AfAm 62 (>60 ml/min/1.73 sqM) Est GFR (CKD-EPI)NonAf 53 (>60 ml/min/1.73 sqM) Glucose 122 H (74-99) mg/dL POC Glucose (mg/dL) (70-110) mg/dL POC Glu Grocery Clerk Marking ID Calcium 9.6 (8.4-10.2) mg/dL Total Bilirubin 0.4 (0.2-1.3) mg/dL AST 22 (14-36) U/L ALT 15 (4-34) U/L Alkaline Phosphatase 86 (38-126) U/L Ammonia (<30) umol/L Troponin I <0.012 (0.000-0.034) ng/mL Total Protein 7.1 (6.3-8.2) g/dL Albumin 4.0 (3.5-5.0) g/dL Urine Color Urine Appearance (Clear) Urine pH (5.0-8.0) Ur Specific [place] (1.001-1.035) Urine Protein (Negative) Urine Glucose (UA) (Negative) Urine Ketones (Negative) Urine Blood (Negative) Urine Nitrite (Negative) Urine Bilirubin (Negative) Urine Urobilinogen (<2.0) mg/dL Ur Leukocyte Esterase (Negative) Salicylates <1.0 mg/dL Urine Opiates Screen (NotDetected) Ur Oxycodone Screen (NotDetected) Urine Methadone Screen (NotDetected) Acetaminophen <10.0 ug/mL Ur Barbiturates Screen (NotDetected) U Tricyclic Antidepress (NotDetected) Ur Phencyclidine Scrn (NotDetected) Ur Amphetamines Screen (NotDetected) U Methamphetamines Scrn (NotDetected) U Benzodiazepines Scrn (NotDetected) Urine Cocaine Screen (NotDetected) U Marijuana (THC) Screen (NotDetected) Serum Alcohol mg/dL 02/02/24 02/02/24 02/02/24 Range/Units 13:14 13:20 13:55 WBC (3.8-10.6) k/uL RBC (3.80-5.40) m/uL Hgb (11.4-16.0) gm/dL Hct (34.0-46.0) % MCV (80.0-100.0) fL MCH (25.0-35.0) pg MCHC (31.0-37.0) g/dL RDW (11.5-15.5) % Plt Count (150-450) k/uL MPV Neutrophils % % Lymphocytes % % Monocytes % % Eosinophils % % Basophils % % Neutrophils # (1.3-7.7) k/uL Lymphocytes # (1.0-4.8) k/uL Monocytes # (0-1.0) k/uL Eosinophils # (0-0.7) k/uL Basophils # (0-0.2) k/uL PT (10.0-12.5) sec INR (<1.2) APTT (22.0-30.0) sec VBG pH (7.31-7.41) VBG pCO2 (37-51) mmHg VBG HCO3 (24-28) mmol/L Sodium (137-145) mmol/L Potassium (3.5-5.1) mmol/L Chloride (98-107) mmol/L Carbon Dioxide (22-30) mmol/L Anion Gap mmol/L BUN (7-17) mg/dL Creatinine (0.52-1.04) mg/dL Est GFR (CKD-EPI)AfAm (>60 ml/min/1.73 sqM) Est GFR (CKD-EPI)NonAf (>60 ml/min/1.73 sqM) Glucose (74-99) mg/dL POC Glucose (mg/dL) 108 (70-110) mg/dL POC Glu Grocery Clerk Marking ID Jenni [place] Calcium (8.4-10.2) mg/dL Total Bilirubin (0.2-1.3) mg/dL AST (14-36) U/L ALT (4-34) U/L Alkaline Phosphatase (38-126) U/L Ammonia <9 (<30) umol/L Troponin I (0.000-0.034) ng/mL Total Protein (6.3-8.2) g/dL Albumin (3.5-5.0) g/dL Urine Color Urine Appearance (Clear) Urine pH (5.0-8.0) Ur Specific [place] (1.001-1.035) Urine Protein (Negative) Urine Glucose (UA) (Negative) Urine Ketones (Negative) Urine Blood (Negative) Urine Nitrite (Negative) Urine Bilirubin (Negative) Urine Urobilinogen (<2.0) mg/dL Ur Leukocyte Esterase (Negative) Salicylates mg/dL Urine Opiates Screen (NotDetected) Ur Oxycodone Screen (NotDetected) Urine Methadone Screen (NotDetected) Acetaminophen ug/mL Ur Barbiturates Screen (NotDetected) U Tricyclic Antidepress (NotDetected) Ur Phencyclidine Scrn (NotDetected) Ur Amphetamines Screen (NotDetected) U Methamphetamines Scrn (NotDetected) U Benzodiazepines Scrn (NotDetected) Urine Cocaine Screen (NotDetected) U Marijuana (THC) Screen (NotDetected) Serum Alcohol <10 mg/dL Disposition Clinical Impression: Altered mental status Disposition: ADMITTED IP TO THIS HOSP Condition: Stable Is patient prescribed a controlled substance at d/c from ED?: No Referrals: Salvador Kelley DO [Primary Care Provider] - 1-2 days Time of Disposition: 14:50
[2024-02-02 13:51] LABS: Partial Thromboplastin Time 34.4 sec (22.0-30.0); Prothrombin Time 10.8 sec (10.0-12.5)
[2024-02-02 14:08] LABS: ALT 15 U/L (4-34); AST 22 U/L (14-36); Acetaminophen <10.0 ug/mL; African American GFR (CKD) 62 (>60 ml/min/1.73 sqM); Alkaline Phosphatase 86 U/L (38-126); Anion Gap 9 mmol/L; Blood Urea Nitrogen 17 mg/dL (7-17); Calcium 9.6 mg/dL (8.4-10.2); Carbon Dioxide 23 mmol/L (22-30); Chloride 113 mmol/L (98-107); Glucose 122 mg/dL (74-99); Non-African American GFR(CKD) 53 (>60 ml/min/1.73 sqM); Potassium 4.2 mmol/L (3.5-5.1); Salicylate <1.0 mg/dL; Sodium 145 mmol/L (137-145); Total Bilirubin 0.4 mg/dL (0.2-1.3); Total Protein 7.1 g/dL (6.3-8.2)
--- NOTE | 2024-02-02 14:09 | CT ---
EXAMINATION TYPE: CT brain wo con DATE OF EXAM: 02/02/2024 COMPARISON: 01/19/2010 HISTORY: AMS CT DLP: 1154.4 mGycm Automated exposure control for dose reduction was used. Findings: The ventricles, basal cisterns and sulci over the convexities are within normal limits and there is n o mass effect or shift of midline structures. No abnormal density is seen throughout the brain parenchyma and there is no acute intra or extra-axia l hemorrhage. The posterior fossa including the brainstem, fourth ventricle and cerebellar pontine angles appear no rmal. Intraorbital contents appear normal and symmetric. Visualized paranasal sinuses and mastoid air cells are well aerated. The calvarium is intact. IMPRESSION: No significant abnormality seen. There is no acute bleed or mass effect.
--- NOTE | 2024-02-02 14:14 | XR ---
EXAMINATION TYPE: XR chest 1V portable DATE OF EXAM: 02/02/2024 COMPARISON: 11/15/2023 HISTORY: Altered mental status TECHNIQUE: Single frontal view of the chest is obtained. FINDINGS: There is an AICD device. There is no focal air space opacity, pleural effusion, or pneumothorax seen. There is probable mild cardiomegaly but no pulmonary vascular congestion. The osseous structures are intact. IMPRESSION: 1. Probable mild cardiomegaly. 2. No acute cardiopulmonary disease.
[2024-02-02 14:27] LABS: Appearance,Urine Clear (Clear); Bilirubin,Urine Negative (Negative); Blood,Urine Negative (Negative); Color,Urine Yellow; Glucose,Urine (UA) 4+ (Negative); Ketones,Urine Negative (Negative); Leukocyte Esterase,Urine Negative (Negative); Nitrite,Urine Negative (Negative); PH, Urine 5.5 (5.0-8.0); Protein,Urine Trace (Negative); Specific Gravity,Urine 1.027 (1.001-1.035); Urobilinogen,Urine <2.0 mg/dL (<2.0)
[2024-02-02 14:38] LABS: Amphetamine Screen,Urine Not Detected (NotDetected); Barbiturate Screen,Urine Not Detected (NotDetected); Benzodiazepines Screen,Urine Not Detected (NotDetected); Cocaine Screen,Urine Not Detected (NotDetected); Methadone Screen, Urine Not Detected (NotDetected); Opiate Screen,Urine Not Detected (NotDetected); Oxycodone Screen, Urine Not Detected (NotDetected); Phencyclidine Screen,Urine Not Detected (NotDetected); Tricyclic Antidepressant,Urine Not Detected (NotDetected); Urn Cannabinoid Scrn Not Detected (NotDetected)
[2024-02-02] MEDS ORDERED: NALOXONE 0.4 MG/ML 1 ML VIAL IV PRN (14:45)
[2024-02-02] MEDS: SODIUM CHLORIDE 0.9% 1,000 ML IV SCH (15:16)
--- NOTE | 2024-02-02 15:18 | P.HPIM ---
History of Present Illness H&P Date: 02/02/24 Patient is a 58-year-old female with history of CAD, ischemic cardiomyopathy status post ICD/pacemaker, fibromyalgia, hypertension, Crohn's disease, anxiety, depression, arthritis presenting with acute encephalopathy. Patient unable to provide any history. Per report, patient has been somnolent for a day. Attempted to call the daughter, however seems like incorrect phone number. In the ED, temperature was 96.2, pulse 62, respiratory rate 14, blood pressure 146/78, saturating at 99% on room air. EKG independently interpreted, shows atrial paced rhythm, no significant ST-T wave changes. Chest x-ray independently interpreted does not show any acute opacities. Head CT did not sh ow any acute process. Patient was given 2 mg of IV Narcan without any improvement. Patient being admitted for acute encephalopathy, likely in the setting of polypharmacy versus other metabolic causes. Pertinent positives and negatives as discussed in HPI, a complete review of systems was performed and all other systems are negative. Patient seen and examined at bedside. Vital signs reviewed General: nontoxic, no distress, appears at stated age, very somnolent, obese Derm: warm, dry Head: atraumatic, normocephalic, symmetric Eyes: anicteric sclera, pupils equal round reactive to light ENT: Nose and ears atraumatic Neck: No thyromegaly, supple Mouth: no lip lesion, mucus membranes moist Cardiovascular: S1S2 reg, no murmur, no edema Lungs: clear to auscultation bilateral, no rhonchi, no rales, no wheeze, no accessory muscle use Abdominal: soft, nontender to palpation, no guarding, no appreciable organomegaly Ext: no gross muscle atrophy, no contractures Neuro: Opens eyes with sternal rub Psych: Unable to assess Assessment/Plan: Active: Acute encephalopathy, toxic versus metabolic Polypharmacy -Patient on multiple sedating medications including topiramate, baclofen and gabapentin, hold for now -Urine toxicology negative -CT head shows no acute process -Possible subclinical seizures -Order EEG -TSH, B12, ammonia level ordered -Neurology consulted -Seizure precautions, fall precautions, aspiration precautions, telemetry Mild respiratory acidosis -Likely in the setting of somnolence from polypharmacy -Continue to monitor Bradycardia -Hold beta-rose Chronic: CAD Ischemic cardiomyopathy, not in exacerbation Dyslipidemia Crohn's disease Arthritis Reconcile home medications once confirmed with pharmacy The patient is admitted with an anticipated less than 2 midnight stay as observation status for evaluation of acute encephalopathy. Surrogate decision-maker: Daughter CODE STATUS: Full code DVT prophylaxis: Xarelto Anticipated discharge date: Pending clinical course Anticipated discharge place: Pending clinical course A total of 55 minutes was spent on the care of this complex patient more than 50% of the time was spent in counseling and care coordination. Past Medical History Past Medical History: Fibromyalgia, GERD/Reflux, Hyperlipidemia, Hypertension, Osteoarthritis (OA) Additional Past Medical History / Comment(s): Crohns, prolonged qt,DDD, SEE DR. 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, COLONOSCO PY, Past Anesthesia/Blood Transfusion Reactions: No Reported Reaction Past Psychological History: Anxiety, Depression Smoking Status: Former smoker Past Alcohol Use History: None Reported Past Drug Use History: None Reported - Past Family History Mother Family Medical History: Cancer, Hypertension Father Family Medical History: Chest Pain / Angina, Diabetes Mellitus Additional Family Medical History / Comment(s): crohns Medications and Allergies Home Medications Medication Instructions Recorded Confirmed Type Adalimumab [Humira(Cf) Pen] 40 mg SQ MO 01/11/21 11/15/23 History Alendronate Sodium 70 mg PO FR 01/11/21 11/15/23 History Atorvastatin [Lipitor] 80 mg PO DAILY 01/11/21 11/15/23 History Diphenoxylate HCl/Atropine 1 tab PO QID 01/11/21 11/15/23 History [Lomotil 2.5-0.025 mg Tablet] Ergocalciferol [Vitamin D2 (1250 1,250 mcg PO WE 01/11/21 11/15/23 History Mcg = 32472 Iu)] Magnesium Oxide 400 mg PO DAILY 01/11/21 11/15/23 History Prochlorperazine [Compazine] 10 mg PO Q8H PRN 01/11/21 11/15/23 History Spironolactone [Aldactone] 25 mg PO DAILY 01/11/21 11/15/23 History Triamcinolone 0.5% Cream [Kenalog 1 applic TOPICAL QID 01/11/21 11/15/23 History 0.5% Cream] buPROPion HCL [buPROPion HCL SR] 150 mg PO BID 01/11/21 11/15/23 History busPIRone HCL 15 mg PO BID 01/11/21 11/15/23 History Aspirin 81 mg PO DAILY 30 Days #30 chew 01/16/21 11/15/23 Rx Ezetimibe [Zetia] 10 mg PO DAILY 05/03/22 11/15/23 History Famotidine [Pepcid] 20 mg PO BID 05/03/22 11/15/23 History Rivaroxaban [Xarelto] 2.5 mg PO BID 05/03/22 11/15/23 History Sacubitril/Valsartan [Entresto 49 1 tab PO BID 05/03/22 11/15/23 History mg-51 mg Tablet] carvediloL [Coreg] 12.5 mg PO BID 05/03/22 11/15/23 History Acetaminophen [Tylenol 8 Hour] 1,300 mg PO Q8H PRN 11/15/23 11/15/23 History Baclofen [Lioresal] 20 mg PO TID 11/15/23 11/15/23 History Dicyclomine [Bentyl] 10 mg PO QID 11/15/23 11/15/23 History Gabapentin [Neurontin] 400 mg PO TID 11/15/23 11/15/23 History Topiramate [Topiramate ER] 25 mg PO DAILY 11/15/23 11/15/23 History Allergies Allergy/AdvReac Type Severity Reaction Status Date / Time ondansetron [From Zofran] Allergy Anaphylaxis Verified 02/02/24 13:12 Physical Exam Vitals: Vital Signs Temp Pulse Resp BP Pulse Ox 02/02/24 14:57 61 12 109/75 100 02/02/24 14:15 55 L 10 L 150/82 99 02/02/24 14:00 62 10 L 148/87 96 02/02/24 13:45 58 L 8 L 116/78 99 02/02/24 13:30 55 L 7 L 112/82 100 02/02/24 13:15 56 L 10 L 146/78 100 02/02/24 13:06 96.2 F L 62 14 146/78 99 02/02/24 12:55 12 02/02/24 12:53 12 Intake and Output 02/02/24 02/02/24 02/02/24 06:59 14:59 22:59 Other: Weight 100.244 kg Results CBC & Chem 7: 02/02/24 13:14 02/02/24 13:14 Labs: Abnormal Lab Results - Last 24 Hours (Table) 02/02/24 02/02/24 02/02/24 Range/Units 13:14 13:14 13:14 APTT 34.4 H (22.0-30.0) sec VBG pH (7.31-7.41) VBG HCO3 (24-28) mmol/L Chloride 113 H (98-107) mmol/L Creatinine 1.14 H (0.52-1.04) mg/dL Glucose 122 H (74-99) mg/dL Urine Protein Trace H (Negative) Urine Glucose (UA) 4+ H (Negative) 02/02/24 Range/Units 13:14 APTT (22.0-30.0) sec VBG pH 7.29 L (7.31-7.41) VBG HCO3 23 L (24-28) mmol/L Chloride (98-107) mmol/L Creatinine (0.52-1.04) mg/dL Glucose (74-99) mg/dL Urine Protein (Negative) Urine Glucose (UA) (Negative)
[2024-02-02] MEDS: RIVAROXABAN 2.5 MG TABLET PO SCH (21:51)
[2024-02-03] MEDS: ACETAMINOPHEN TAB 325 MG TAB PO PRN (02:24)
[2024-02-03] MEDS: ATORVASTATIN 80 MG TAB PO SCH (09:03)
[2024-02-03] MEDS: FAMOTIDINE 20 MG TAB PO SCH (09:03)
[2024-02-03] MEDS: EZETIMIBE 10 MG TAB PO SCH (09:03)
[2024-02-03] MEDS: ASPIRIN 81 MG PO SCH (09:03)
[2024-02-03] MEDS: DAPAGLIFLOZIN PROPANEDIOL 10 MG TABLET PO SCH (09:03)
[2024-02-03] MEDS: SACUBITRIL/VALSARTAN 49 MG-51 MG TABLET PO SCH (09:05)
[2024-02-03] MEDS: carvediloL 12.5 MG TAB PO SCH (09:06)
[2024-02-03] MEDS: SPIRONOLACTONE 25 MG TAB PO SCH (09:06)
[2024-02-03 11:29] LABS: Basophils % (A) 0 %; Eosinophils # (A) 0.2 k/uL (0-0.7); Eosinophils % (A) 2 %; HCT 38.6 % (34.0-46.0); HGB 12.7 gm/dL (11.4-16.0); Lymphocytes # (A) 3.2 k/uL (1.0-4.8); Lymphocytes % (A) 29 %; MCHC 32.8 g/dL (31.0-37.0); MCV 97.8 fL (80.0-100.0); Mean Platelet Volume 8.1; Monocytes # (A) 0.5 k/uL (0-1.0); Monocytes % (A) 5 %; Neutrophils # (A) 6.9 k/uL (1.3-7.7); Neutrophils % (A) 63 %; Platelet Count 244 k/uL (150-450); RBC 3.95 m/uL (3.80-5.40); RDW 13.6 % (11.5-15.5)
[2024-02-03 11:48] LABS: ALT 14 U/L (4-34); AST 36 U/L (14-36); African American GFR (CKD) 69 (>60 ml/min/1.73 sqM); Albumin 3.7 g/dL (3.5-5.0); Alkaline Phosphatase 74 U/L (38-126); Anion Gap 8 mmol/L; Blood Urea Nitrogen 20 mg/dL (7-17); Calcium 9.1 mg/dL (8.4-10.2); Carbon Dioxide 22 mmol/L (22-30); Chloride 112 mmol/L (98-107); Glucose 102 mg/dL (74-99); Non-African American GFR(CKD) 60 (>60 ml/min/1.73 sqM); Potassium 3.9 mmol/L (3.5-5.1); Sodium 142 mmol/L (137-145); Total Bilirubin 0.4 mg/dL (0.2-1.3); Total Protein 6.6 g/dL (6.3-8.2)
--- NOTE | 2024-02-03 14:12 | P.CNNES ---
History of Present Illness Consult date: 02/03/24 Requesting physician: Reddy Dorsey Reason for Consult: encephalopathy, possible polypharmacy History of Present Illness: This is a 58-year-old woman with history of headache, hypertension, coronary artery disease status post stent, cardiomyopathy status post ICD and pacemaker, coronary disease who presented emergency department because of altered mental status. Patient stated that she slept at 9 PM on 02/01/2024 and was doing well but it seems that she was somnolent and not waking up by her daughter even with a sternal rub. She denies that she had any urinary incontinence, bowel incontinence or tongue bite. Denies being told that she had any jerking of extremities that when was witnessed by her daughter. She denies any fever, any focal weakness, numbness, visual disturbance. Denies any significant headache associate with this episode. She stated that she has underlying history of headache and she is following up with a neurologist in [facility] and pending to have a routine EEG. She was on Nurtec and she stated for at least a month and a half and her headache has been drastically better with the Nurtec. Also she has been on Topamax for some time and is not new medication but feels Topamax is not helping her but the Nurtec is decreasing the frequency as well as severity of the pain. She stated the headache initially was starting in the frontal temporal regions and then wraps around her head and she feels it is a throbbing headache. Denies any photophobia or phonophobia. Denies any nausea or vomiting. She has some scar erythema and she was evaluated by an medical record retrieval specialist and was notified she had allergies. She denies being given diagnosis of migraine by her outpatient neurologist. Some of the workup during this hospital visit consisted of: Blood cell is 9.8 Ammonia level is less than 9. TSH is 0.711 Vitamin B12 is 234 which is considered severely low normal the normal supposed to be between 200-944. I reviewed the rest of the lab workup Urine drug screen is nondetected. Serum alcohol is less than 10 CT of the head is reported as no significant abnormality seen. There is no acute bleed or mass effect. I personally reviewed the CT and I agree with the report. Review of Systems The positive and negative as per HPI. Past Medical History Past Medical History: Fibromyalgia, GERD/Reflux, Hyperlipidemia, Hypertension, Osteoarthritis (OA) Additional Past Medical History / Comment(s): Crohns, prolonged qt,DDD, SEE DR. 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, COLONOSCOPY, Past Anesthesia/Blood Transfusion Reactions: No Reported Reaction Past Psychological History: Anxiety, Depression Smoking Status: Former smoker Past Alcohol Use History: None Reported Past Drug Use History: None Reported - Past Family History Mother Family Medical History: Cancer, Hypertension Father Family Medical History: Chest Pain / Angina, Diabetes Mellitus Additional Family Medical History / Comment(s): crohns Medications and Allergies Home Medications Medication Instructions Recorded Confirmed Type Adalimumab [Humira(Cf) Pen] 40 mg SQ Q7D 01/11/21 02/02/24 History Alendronate Sodium 70 mg PO Q7D 01/11/21 02/02/24 History Atorvastatin [Lipitor] 80 mg PO DAILY 01/11/21 02/02/24 History Diphenoxylate HCl/Atropine 1 tab PO QID PRN 01/11/21 02/02/24 History [Lomotil 2.5-0.025 mg Tablet] Ergocalciferol [Vitamin D2 (1250 1,250 mcg PO Q7D 01/11/21 02/02/24 History Mcg = 25490 Iu)] Magnesium Oxide 400 mg PO DAILY 01/11/21 02/02/24 History Prochlorperazine [Compazine] 10 mg PO Q8H PRN 01/11/21 02/02/24 History Spironolactone [Aldactone] 25 mg PO DAILY 01/11/21 02/02/24 History Triamcinolone 0.5% Cream [Kenalog 1 applic TOPICAL QID 01/11/21 02/02/24 History 0.5% Cream] buPROPion HCL [buPROPion HCL SR] 150 mg PO BID 01/11/21 02/02/24 History busPIRone HCL 15 mg PO BID 01/11/21 02/02/24 History Aspirin 81 mg PO DAILY 30 Days #30 chew 01/16/21 02/02/24 Rx Ezetimibe [Zetia] 10 mg PO DAILY 05/03/22 02/02/24 History Famotidine [Pepcid] 20 mg PO BID 05/03/22 02/02/24 History Rivaroxaban [Xarelto] 2.5 mg PO BID 05/03/22 02/02/24 History Sacubitril/Valsartan [Entresto 49 1 tab PO BID 05/03/22 02/02/24 History mg-51 mg Tablet] carvediloL [Coreg] 18.75 mg PO BID-W/MEALS 05/03/22 02/02/24 History Acetaminophen [Tylenol 8 Hour] 1,300 mg PO Q8H PRN 11/15/23 02/02/24 History Baclofen [Lioresal] 20 mg PO TID 11/15/23 02/02/24 History Dicyclomine [Bentyl] 10 mg PO QID 11/15/23 02/02/24 History Gabapentin [Neurontin] 400 mg PO TID 11/15/23 02/02/24 History Topiramate [Topiramate ER] 25 mg PO DAILY 11/15/23 02/02/24 History Dapagliflozin Propanediol [Farxiga] 10 mg PO DAILY 02/02/24 02/02/24 History Docusate [Colace] 100 mg PO DIRECTED PRN 02/02/24 02/02/24 History Hydrocortisone [Anusol-Hc] 1 applic RECTAL DIRECTED PRN 02/02/24 02/02/24 History Mesalamine [Canasa] 1 unit RECTAL DIRECTED 02/02/24 02/02/24 History Rimegepant Sulfate [Nurtec Odt] 75 mg PO DAILY PRN 02/02/24 02/02/24 History polyethylene glycoL 3350 [Miralax] 17 gm PO DIRECTED PRN 02/02/24 02/02/24 History Allergies Allergy/AdvReac Type Severity Reaction Status Date / Time ondansetron [From Zofran] Allergy Anaphylaxis Verified 02/02/24 15:46 Physical Examination - Vital Signs Vital Signs: Vital Signs Temp Pulse Pulse Resp BP BP Pulse Ox 02/03/24 08:00 97.5 F L 74 16 152/83 98 02/03/24 04:00 97.8 F 66 18 154/81 97 02/03/24 02:00 18 02/03/24 00:00 62 18 139/66 96 02/02/24 20:00 97.6 F 69 18 124/62 95 02/02/24 17:05 64 18 02/02/24 17:04 97.4 F L 64 18 133/67 96 02/02/24 16:20 97.0 F L 55 L 14 126/83 97 02/02/24 16:04 55 L 14 126/83 99 02/02/24 15:35 12 02/02/24 14:57 61 12 109/75 100 02/02/24 14:15 55 L 10 L 150/82 99 02/02/24 14:00 62 10 L 148/87 96 Intake and Output 02/02/24 02/03/24 02/03/24 22:59 06:59 14:59 Output Total 100 Balance -100 Output: Urine 100 Other: Voiding Method External Catheter External Catheter External Catheter Weight 97 kg GENERAL: The patient is lying in bed and is not in acute distress. HENT: Supple neck. NEUROLOGICAL: Higher mental function: The patient is awake, alert, oriented to self, place and time. Patient is following commands. No aphasia and no neglect. Cranial nerves: The pupils are round, equal and reactive to light and accommodation. Visual pruitt are full to confrontation throughout. Extraocular movement is intact no nystagmus is noted. Facial sensation is normal to touch throughout. The facial strength is normal throughout. Hearing is normal bilaterally to hand rub. Tongue is midline and moved [id number] without any difficulty. No dysarthria is noted. Shoulder shrug is normal bilaterally. Motor: The strength is 5 over 5 throughout. Normal tone and bulk. Cerebellum: Normal finger to nose heel to mauro bilaterally. Sensation: Sensation is normal to touch throughout. Reflexes (right/left): 2+ throughout. Plantars are downgoing bilaterally. Results - Laboratory Findings CBC and BMP: 02/03/24 11:14 02/03/24 11:14 Abnormal Lab Findings: Abnormal Labs 02/02/24 02/02/24 02/02/24 13:14 13:14 13:14 WBC APTT 34.4 H VBG pH VBG HCO3 Chloride 113 H BUN Creatinine 1.14 H Glucose 122 H Urine Protein Trace H Urine Glucose (UA) 4+ H 02/02/24 02/03/24 02/03/24 13:14 11:14 11:14 WBC 11.0 H APTT VBG pH 7.29 L VBG HCO3 23 L Chloride 112 H BUN 20 H Creatinine Glucose 102 H Urine Protein Urine Glucose (UA) Assessment and Plan Assessment: This is a 58-year-old woman with underlying history of headache and follows up with outpatient neurologist feels alleviation with Nurtec, Crohn's disease, CAD status post stent, cardiomyopathy status post ICD/pacemaker who presented emergency department because she was unarousable and was somnolent upon her daughter placing painful stimuli on her chest to arouse her. She denies any urinary or bowel incontinence or tongue bite. Denies being told she had any jerking of any extremity. Denies any history of seizure. Episode of encephalopathy/somnolence of unknown etiology. CT of the head is unremarkable for any acute or subacute stroke. Unsure if neurology or cardiology in etiology (especially with significant cardiac history) Very low normal vitamin B12 and one of the causes is due to her underlying Crohn's disease causing malabsorption History of cephalgia and improving with Nurtec and follows up with neurologist as an outpatient History of coronary artery disease status post stent History of cardiomyopathy status post ICD/pacemaker History of Crohn's disease Or tobacco user last time she smoked was about 3 years ago Polypharmacy Plan: Patient is on aspirin 81 mg, Lipitor 80 mg. Routine EEG is ordered and is pending Ordered MRI Brain. Regarding her vitamin B-12 the severely low I will defer the management to the primary team Consider Cardiology consultation especially with significant cardiac history. Will defer the rest of the medical management to the primary team Upon discharge recommend the patient to follow-up with her outpatient neurologist. Plan discussed with the patient and the primary team Thank for the consultation Time with Patient: Greater than 30
[2024-02-03] MEDS: CYANOCOBALAMIN 1,000 MCG/ML 1 ML VIAL IM SCH (14:49)
--- NOTE | 2024-02-03 15:24 | P.PN ---
Subjective Progress Note Date: 02/03/24 Subjective: Patient seen and examined at the bedside. No acute events overnight. All Systems reviewed and pertinent positives and negatives noted in HPI, all other symptoms are negative Objective: Vital signs reviewed. General: non toxic, no distress, appears at stated age, normal weight Derm: no unusual rashes/lesions, warm Head: atraumatic, normocephalic, symmetric Eyes: EOMI, no lid lag, anicteric sclera, pupils equal round reactive to light ENT: Nose and ears atraumatic Neck: No cervical lymphadenopathy, trachea midline, supple Mouth: no lip lesion, mucus membranes moist Cardiovascular: S1S2 reg, no murmur, positive dorsalis pedis pulse bilateral, no edema Lungs: CTA bilateral, no rhonchi, no rales, no accessory muscle use Abdominal: soft, nontender to palpation, no guarding Ext: muscle strength 5 out of 5 in all 4 extremities grossly, no gross muscle atrophy, no contractures, Neuro: CN II-XI grossly intact, no gross focal neuro deficits Psych: Alert, oriented, appropriate affect Data reviewed today: Labs: WBC 11.0, hemoglobin 12.7, hematocrit 38.6, platelet count 244, sodium 142, potassium 3.9, chloride 112, creatinine 1.03, BUN 20, glucose 102, magnesium 2.0, TSH 0.711, vitamin B12 234, ammonia <9 Images: No new imaging Assessment and Plan: 58-year-old female with history of CAD status post stent, ischemic cardiomyopathy status post ICD/pacemaker, fibromyalgia, hypertension, Crohn's disease, anxiety, depression, arthritis presented to the ER with acute encepha lopathy. Active: #Acute encephalopathy, toxic versus metabolic Polypharmacy Patient on multiple sedating medications including topiramate, baclofen and gabapentin, hold for now Urine toxicology negative CT head shows no acute process Possible subclinical seizures Order EEG TSH 0.711, vitamin B12 234, ammonia <9 Neurology consulted; discussed cardiology versus neurology etiology AICD interrogation; will consult cardiology as needed MRI brain ordered by neurology; result pending Seizure precautions, fall precautions, aspiration precautions, telemetry #Mild respiratory acidosis, resolved -Likely in the setting of somnolence from polypharmacy -Continue to monitor #Bradycardia, resolved -Hold beta-rose #Hyperglycemia Serum glucose 132 UA: Mild glucosuria Order HbA1c Resume Farxiga 10 mg p.o. daily Chronic: CAD status post stent Ischemic cardiomyopathy, not in exacerbation Dyslipidemia Crohn's disease Arthritis Resume aspirin 81 mg p.o. daily, Lipitor 80 mg p.o. daily, Aldactone 25 mg p.o. daily, Entresto 49-51mg 1 each p.o. twice daily, Coreg 18.75 mg p.o. twice daily, Xarelto 2.5 mg p.o. twice daily F: 75 cc/h E: Replete as needed N: Heart healthy diet A: Fall precautions, seizure precautions, aspiration precaution DVT ppx: Xarelto Code Status: Full code Anticipated discharge place: Pending clinical course Anticipated discharge date: Pending clinical course I have seen and evaluated the patient today. Discussed with the resident and agree with the residents finding and plan as documented in the resident's note. Patient reports feeling at baseline. Unable MRI due to AICD. EEG mild encephalopathy. Plans to interrogate device and consult Cardiology. Discussed with Dr. Hinojosa. Objective - Vital Signs Vital signs: Vital Signs Temp 98.1 F 02/03/24 12:00 Pulse 70 02/03/24 14:00 Resp 16 02/03/24 14:00 BP 150/88 02/03/24 12:00 Pulse Ox 97 02/03/24 12:00 FiO2 Intake & Output 02/02/24 02/03/24 02/03/24 18:59 06:59 18:59 Output Total 100 Balance -100 Weight 100.244 kg 97 kg Output: Urine 100 Other: Voiding Method External Catheter External Catheter External Catheter - Labs CBC & Chem 7: 02/03/24 11:14 02/03/24 11:14 Labs: Abnormal Lab Results - Last 24 Hours (Table) 02/03/24 02/03/24 Range/Units 11:14 11:14 WBC 11.0 H (3.8-10.6) k/uL Chloride 112 H (98-107) mmol/L BUN 20 H (7-17) mg/dL Glucose 102 H (74-99) mg/dL
--- NOTE | 2024-02-03 16:52 | EEG ---
ELECTROENCEPHALOGRAM REPORT CLINICAL HISTORY: 58-year-old woman with altered mental status. The EEG is obtained to evaluate for seizure Optifoam activity. EEG TYPE: This is a routine 21-channel EEG with video using the 10/20 electrode placement system. RELEVANT MEDICATIONS: 1. Gabapentin. 2. Topiramate. DESCRIPTION: Wakefulness is obtained. During awake state, the posterior-dominant rhythm consists of [id number] voltage of 6-7 hertz activity. There is no physiological stage 2 sleep architecture. There is no focal slowing. Interictal and ictal are none. There is myogenic artifact over the left temporal region. ACTIVATION PROCEDURE: Photic stimulation and hyperventilation are not performed. CLINICAL INTERPRETATION: This is an abnormal routine EEG. The background slowing is suggestive of mild encephalopathy. There is no focal slowing, epileptiform discharge, or seizure on the EEG. Clinical correlation recommended. NIKHIL / COLIN: [id number] / MTDD
[2024-02-04 06:52] LABS: African American GFR (CKD) 85 (>60 ml/min/1.73 sqM); Anion Gap 9 mmol/L; Blood Urea Nitrogen 15 mg/dL (7-17); Carbon Dioxide 19 mmol/L (22-30); Chloride 112 mmol/L (98-107); Glucose 87 mg/dL (74-99); Non-African American GFR(CKD) 74 (>60 ml/min/1.73 sqM); Potassium 3.6 mmol/L (3.5-5.1); Sodium 140 mmol/L (137-145)
[2024-02-04 10:49] VITALS: RESP 16
--- NOTE | 2024-02-04 11:09 | P.CRDCN ---
History of Present Illness Consult date: 02/04/24 Reason for Consult (text): Out of hospital cardiac syncope History of present illness: This is a 58-year-old female patient of Dr. Lawrence with past medical history of hypertension, coronary artery disease status post stent x 2, dilated cardio myopathy with a EF of 5 % status post ICD [employer], drug induced torsades, ventricular fibrillation, AVNRT status post ablation, hyperlipidemia, obesity, Crohn's. We have been asked to evaluate the patient for a prehospital cardiac syncope. AICD has been interrogated and no episodes of V-fib V. tach but 1 episode of nonsustained V. tach. She states that on Saturday in the evening she went to bed between 8 and 9:00 and she woke up in the morning to her daughter doing sternal rubs on her and then somebody else was doing sternal rubs. She was told by her daughter that she was doing that was because she was not waking up. She denies having any chest pain, shortness of breath, lightheadedness, dizziness, palpitations. She has had no symptoms since her admission. Patient quit smoking 3 years ago. Blood pressure 106/77, heart rate 84, pulse ox 95% on room air. Patient states that she was planning on being discharged today. EKG: Paced rhythm Chest x-ray: Probable mild cardiomegaly. No acute process. CT of the brain: No acute process Laboratory studies: WBC 11, hemoglobin 12.7. Sodium 140, potassium 3.6, BUN 15 creatinine 0.87 initially was 1.14. TSH 0.711. Troponin negative x 1. Ammonia level less than 9. Drug screen negative. Home cardiac medications: Aspirin 81 mg daily, atorvastatin 80 mg daily, Coreg 18.75 mg twice daily, Farxiga 10 mg daily, Zetia 10 mg daily, magnesium oxide 400 mg daily, Xarelto 2.5 mg twice daily, Entresto 29-51 mg twice daily, Aldactone 25 mg daily. Cardiac catheterization 05/09/2022 mid LAD stent patent, no significant obstructive disease. Cardiac catheterization 01/11/2021 occluded LAD status post stenting. Echocardiogram performed in the office on 06/22/2022 revealed EF of 30%. Review Of Systems: At the time of my exam: CONSTITUTIONAL: Denies fever or chills. HEENT: Denies blurred vision, vision changes, or eye pain. Denies hemoptysis CARDIOVASCULAR: Denies chest pain. Denies orthopnea. Denies PND. Denies palpitations RESPIRATORY: Denies shortness of breath. GASTROINTESTINAL: Denies abdominal pain. Denies nausea or vomiting. HEMATOLOGIC: Denies bleeding disorders. GENITOURINARY: Denies any blood in urine. SKIN: Denies puritis. Denies rash. Physical examination: Gen: This is a obese 58-year-old female appears to be in no acute distress. VS: reviewed HEENT: Head is atraumatic, normocephalic. Pupils equal, round. Sclerae is anicteric. NECK: Supple. No JVD. LUNGS: Clear to auscultation. No wheezes or rhonchi. No intercostal retractions. HEART: Regular rate and rhythm. No murmur. ABDOMEN: Soft No tenderness. EXTREMITIES: No pedal edema. No calf tenderness. NEUROLOGICAL: Patient is awake, alert and oriented x3. Assessment: Episode of somnolence of unclear etiology worked up by neurology Coronary artery disease status post stent x 2 Dilated cardiomyopathy status post AICD History of ventricular fibrillation AVNRT status post ablation Hyperlipidemia Hypertension Obesity Crohn's Plan: Continue patient's home cardiac medications Obtain 2-D echocardiogram and Doppler study to assess cardiac structure and function If echocardiogram is not worse from previous EF of 30%, patient is cleared for discharge from a follow-up with Dr. Lawrence in 1 to 2 weeks. Thank you kindly for this consultation. Nurse practitioner note has been reviewed, I agree with documented findings and plan of care. Patient was seen and examined. Past Medical History Past Medical History: Fibromyalgia, GERD/Reflux, Hyperlipidemia, Hypertension, Osteoarthritis (OA) Additional Past Medical History / Comment(s): Crohns, prolonged qt,DDD, SEE DR. 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, COLO NOSCOPY, Past Anesthesia/Blood Transfusion Reactions: No Reported Reaction Past Psychological History: Anxiety, Depression Smoking Status: Former smoker Past Alcohol Use History: None Reported Past Drug Use History: None Reported - Past Family History Mother Family Medical History: Cancer, Hypertension Father Family Medical History: Chest Pain / Angina, Diabetes Mellitus Additional Family Medical History / Comment(s): crohns Medications and Allergies Home Medications Medication Instructions Recorded Confirmed Type Adalimumab [Humira(Cf) Pen] 40 mg SQ Q7D 01/11/21 02/02/24 History Alendronate Sodium 70 mg PO Q7D 01/11/21 02/02/24 History Atorvastatin [Lipitor] 80 mg PO DAILY 01/11/21 02/02/24 History Diphenoxylate HCl/Atropine 1 tab PO QID PRN 01/11/21 02/02/24 History [Lomotil 2.5-0.025 mg Tablet] Ergocalciferol [Vitamin D2 (1250 1,250 mcg PO Q7D 01/11/21 02/02/24 History Mcg = [id number] Iu)] Magnesium Oxide 400 mg PO DAILY 01/11/21 02/02/24 History Prochlorperazine [Compazine] 10 mg PO Q8H PRN 01/11/21 02/02/24 History Spironolactone [Aldactone] 25 mg PO DAILY 01/11/21 02/02/24 History Triamcinolone 0.5% Cream [Kenalog 1 applic TOPICAL QID 01/11/21 02/02/24 History 0.5% Cream] buPROPion HCL [buPROPion HCL SR] 150 mg PO BID 01/11/21 02/02/24 History busPIRone HCL 15 mg PO BID 01/11/21 02/02/24 History Aspirin 81 mg PO DAILY 30 Days #30 chew 01/16/21 02/02/24 Rx Ezetimibe [Zetia] 10 mg PO DAILY 05/03/22 02/02/24 History Famotidine [Pepcid] 20 mg PO BID 05/03/22 02/02/24 History Rivaroxaban [Xarelto] 2.5 mg PO BID 05/03/22 02/02/24 History Sacubitril/Valsartan [Entresto 49 1 tab PO BID 05/03/22 02/02/24 History mg-51 mg Tablet] carvediloL [Coreg] 18.75 mg PO BID-W/MEALS 05/03/22 02/02/24 History Acetaminophen [Tylenol 8 Hour] 1,300 mg PO Q8H PRN 11/15/23 02/02/24 History Baclofen [Lioresal] 20 mg PO TID 11/15/23 02/02/24 History Dicyclomine [Bentyl] 10 mg PO QID 11/15/23 02/02/24 History Gabapentin [Neurontin] 400 mg PO TID 11/15/23 02/02/24 History Topiramate [Topiramate ER] 25 mg PO DAILY 11/15/23 02/02/24 History Dapagliflozin Propanediol [Farxiga] 10 mg PO DAILY 02/02/24 02/02/24 History Docusate [Colace] 100 mg PO DIRECTED PRN 02/02/24 02/02/24 History Hydrocortisone [Anusol-Hc] 1 applic RECTAL DIRECTED PRN 02/02/24 02/02/24 History Mesalamine [Canasa] 1 unit RECTAL DIRECTED 02/02/24 02/02/24 History Rimegepant Sulfate [Nurtec Odt] 75 mg PO DAILY PRN 02/02/24 02/02/24 History polyethylene glycoL 3350 [Miralax] 17 gm PO DIRECTED PRN 02/02/24 02/02/24 History Allergies Allergy/AdvReac Type Severity Reaction Status Date / Time ondansetron [From Zofran] Allergy Anaphylaxis Verified 02/02/24 15:46 Physical Exam Vitals: Vital Signs Temp Pulse Resp BP Pulse Ox 02/04/24 03:57 97.8 F 67 18 141/86 99 02/04/24 01:49 18 02/04/24 00:00 70 18 157/77 98 02/03/24 20:00 98.3 F 77 18 144/81 97 02/03/24 16:00 98.1 F 64 18 163/96 98 02/03/24 14:00 70 16 02/03/24 12:00 98.1 F 70 16 150/88 97 Intake and Output 02/03/24 02/04/24 02/04/24 22:59 06:59 14:59 Intake Total 236 118 Output Total 500 Balance 236 -500 118 Intake: Oral 236 118 Output: Urine 500 Other: Voiding Method External Catheter External Catheter Weight 95.5 kg Results 02/03/24 11:14 02/04/24 05:44 Cardiac Enzymes 02/03/24 Range/Units 11:14 AST 36 (14-36) U/L CBC 02/03/24 Range/Units 11:14 WBC 11.0 H (3.8-10.6) k/uL RBC 3.95 (3.80-5.40) m/uL Hgb 12.7 (11.4-16.0) gm/dL Hct 38.6 (34.0-46.0) % Plt Count 244 (150-450) k/uL Comprehensive Metabolic Panel 02/03/24 02/04/24 Range/Units 11:14 05:44 Sodium 142 140 (137-145) mmol/L Potassium 3.9 3.6 (3.5-5.1) mmol/L Chloride 112 H 112 H (98-107) mmol/L Carbon Dioxide 22 19 L (22-30) mmol/L BUN 20 H 15 (7-17) mg/dL Creatinine 1.03 0.87 (0.52-1.04) mg/dL Glucose 102 H 87 (74-99) mg/dL Calcium 9.1 9.0 (8.4-10.2) mg/dL AST 36 (14-36) U/L ALT 14 (4-34) U/L Alkaline Phosphatase 74 (38-126) U/L Total Protein 6.6 (6.3-8.2) g/dL Albumin 3.7 (3.5-5.0) g/dL Current Medications Generic Name Dose Route Start Last Admin Trade Name Freq PRN Reason Stop Dose Admin Acetaminophen 650 mg 02/02/24 14:45 02/03/24 02:24 Acetaminophen Tab 325 Mg Tab PO 650 mg Q6HR PRN Administration Mild Pain or Fever > 100.5 Aspirin 81 mg 02/03/24 09:00 02/04/24 08:39 Aspirin 81 Mg PO 81 mg DAILY FRANCHESCA Administration Atorvastatin Calcium 80 mg 02/03/24 09:00 02/04/24 08:39 Atorvastatin 80 Mg Tab PO 80 mg DAILY FRANCHESCA Administration Carvedilol 18.75 mg 02/03/24 08:30 02/04/24 06:04 Carvedilol 12.5 Mg Tab PO 18.75 mg BID-W/MEALS FRANCHESCA Administration Cyanocobalamin 1,000 mcg 02/03/24 13:30 02/04/24 08:39 Cyanocobalamin 1,000 Mcg/Ml 1 Ml Vial IM 1,000 mcg DAILY FRANCHESCA Administration Dapagliflozin 10 mg 02/03/24 09:00 02/04/24 08:38 Dapagliflozin Propanediol 10 Mg Tablet PO 10 mg DAILY FRANCHESCA Administration Ezetimibe 10 mg 02/03/24 09:00 02/04/24 08:39 Ezetimibe 10 Mg Tab PO 10 mg DAILY FRANCHESCA Administration Famotidine 20 mg 02/03/24 09:00 02/04/24 08:39 Famotidine 20 Mg Tab PO 20 mg BID FRANCHESCA Administration Sodium Chloride 1,000 mls @ 75 mls/hr 02/02/24 15:00 02/04/24 06:11 Saline 0.9% IV Not Given .[id number] FRANCHESCA Naloxone HCl 0.2 mg 02/02/24 14:45 Naloxone 0.4 Mg/Ml 1 Ml Vial IV Q2M PRN Opioid Reversal Rivaroxaban 2.5 mg 02/02/24 21:00 02/04/24 08:39 Rivaroxaban 2.5 Mg Tablet PO 2.5 mg BID FRANCHESCA Administration Protocol Sacubitril/Valsartan 1 each 02/03/24 09:00 02/04/24 08:39 Sacubitril/Valsartan 49 Mg-51 Mg Tablet PO 1 each BID FRANCHESCA Administration Spironolactone 25 mg 02/03/24 09:00 02/04/24 08:39 Spironolactone 25 Mg Tab PO 25 mg DAILY FRANCHESCA Administration Intake and Output 02/03/24 02/04/24 02/04/24 22:59 06:59 14:59 Intake Total 236 118 Output Total 500 Balance 236 -500 118 Intake: Oral 236 118 Output: Urine 500 Other: Voiding Method External Catheter External Catheter Weight 95.5 kg 02/03/24 11:14 02/04/24 05:44
[2024-02-04 14:21] VITALS: BP 162/88; PULSE 72; TEMP 98
--- NOTE | 2024-02-04 14:21 | P.PN ---
Subjective Progress Note Date: 02/04/24 I am following up with the patient and she feels she is doing better. Denies any new neurological issues. Unable to obtain MRI because of the pacemaker. Objective - Vital Signs Vital signs: Vital Signs Temp 97.8 F 02/04/24 08:00 Pulse 84 02/04/24 08:00 Resp 16 02/04/24 08:00 BP 106/77 02/04/24 08:00 Pulse Ox 95 02/04/24 08:00 FiO2 Intake & Output 02/03/24 02/04/24 02/04/24 18:59 06:59 18:59 Intake Total 354 118 118 Output Total 500 Balance 354 -382 118 Weight 95.5 kg Intake: Oral 354 118 118 Output: Urine 500 Other: Voiding Method External Catheter External Catheter External Catheter - Exam GENERAL: The patient is lying in bed and is not in acute distress. HENT: Supple neck. NEUROLOGICAL: Higher mental function: The patient is awake, alert, oriented to self, place and time. Patient is following commands. No aphasia and no neglect. Cranial nerves: The pupils are round, equal and reactive to light and accommo dation. Visual pruitt are full to confrontation throughout. Extraocular movement is intact no nystagmus is noted. Facial sensation is normal to touch throughout. The facial strength is normal throughout. Hearing is normal bilaterally to hand rub. Tongue is midline and moved [id number] without any difficulty. No dysarthria is noted. Shoulder shrug is normal bilaterally. Motor: The strength is 5 over 5 throughout. Normal tone and bulk. Cerebellum: Normal finger to nose heel to mauro bilaterally. Sensation: Sensation is normal to touch throughout. Reflexes (right/left): 2+ throughout. Plantars are downgoing bilaterally. Some of the workup during this hospital visit consisted of: Ammonia level is less than 9. TSH is 0.711 Vitamin B12 is 234 which is considered severely low normal the normal supposed to be between 200-944. Urine drug screen is nondetected. Serum alcohol is less than 10 CT of the head is reported as no significant abnormality seen. There is no acute bleed or mass effect. I personally reviewed the CT and I agree with the report. Routine EEG is abnormal. The background slowing suggestive of mild encephalopathy. There is no focal slowing, OptiForm discharge or seizure on the EEG. - Labs CBC & Chem 7: 02/03/24 11:14 02/04/24 05:44 Labs: Abnormal Lab Results - Last 24 Hours (Table) 02/04/24 Range/Units 05:44 Chloride 112 H (98-107) mmol/L Carbon Dioxide 19 L (22-30) mmol/L Assessment and Plan Assessment: This is a 58-year-old woman with underlying history of headache and follows up with outpatient neurologist feels alleviation with Nurtec, Crohn's disease, CAD status post stent, cardiomyopathy status post ICD/pacemaker who presented emergency department because she was unarousable and was somnolent upon her daug hter placing painful stimuli on her chest to arouse her. She denies any urinary or bowel incontinence or tongue bite. Denies being told she had any jerking of any extremity. Denies any history of seizure. Episode of encephalopathy/somnolence of unknown etiology. CT of the head is unremarkable for any acute or subacute stroke. Unsure if neurological or cardiac in etiology (especially with significant cardiac history). Routine EEG: Mild encephalopathy but no discharges or seizure. Very low normal vitamin B12 and one of the causes is due to her underlying Crohn's disease causing malabsorption History of cephalgia and improving with Nurtec and follows up with neurologist as an outpatient History of coronary artery disease status post stent History of cardiomyopathy status post ICD/pacemaker History of Crohn's disease Or tobacco user last time she smoked was about 3 years ago Polypharmacy Plan: Patient is on aspirin 81 mg, Lipitor 80 mg. Recommend repeat EEG as an outpatient and consider even a longer term EEG to assess if she has any discharges or seizures not seen on initial EEG. This should be coordinated by her neurologist as an outpatient. Starting MRI of the brain unable to obtain as an inpatient because of her pacemaker for the MRI techs. I recommend patient to have MRI of the brain as an outpatient that is MRI compatible. Regarding her vitamin B-12 the severely low I will defer the management to the primary team Consider Cardiology consultation especially with significant cardiac history. Will defer the rest of the medical management to the primary team Upon discharge recommend the patient to follow-up with her outpatient neurologist within 2 weeks. Plan discussed with the patient and the primary team There is no further neurological workup. Will sign off. Please reconsult if needed. Time with Patient: Less than 30
--- NOTE | 2024-02-04 16:55 | CA ---
Transthoracic Echo Report Name: Kerry Garcia Age: 58 Gender: F : 1965 Exam Date: 02/04/2024 13:16 Exam Location: [facility] Ht (in): 67 Wt (lb): 210 Ordering Physician: Randa Bloom Attending/Referring Phys: [id number], [employer] Sydney Arias, CATHY Procedure CPT: Indications: LVF Cardiac Hx: AICD Technical Quality: Fair Contrast 1: Definity Total Dose (mL): 2 Contrast 2: Total Dose (mL): MEASUREMENTS (Male / Female) Normal Values 2D ECHO LV Diastolic Diameter PLAX 5.8 cm 4.2 - 5.9 / 3.9 - 5.3 cm LV Systolic Diameter PLAX 3.3 cm IVS Diastolic Thickness 1.5 cm 0.6 - 1.0 / 0.6 - 0.9 cm LVPW Diastolic Thickness 1.4 cm 0.6 - 1.0 / 0.6 - 0.9 cm LV Relative Wall Thickness 0.5 RV Internal Dim ED PLAX 2.9 cm LA Systolic Diameter LX 3.2 cm 3.0 - 4.0 / 2.7 - 3.8 cm LV Diastolic Volume MOD BP 52.0 cm??? 67 - 155 / 56 - 104 cm??? LV Systolic Volume MOD BP 29.3 cm??? - 58 / 19 - 49 cm??? LV Ejection Fraction MOD BP 43.7 % >= 55 % LV Cardiac Index MOD BP 853.6 cm???/min???m??? LV Diastolic Volume MOD 4C 60.8 cm??? LV Systolic Volume MOD 4C 27.3 cm??? LV Ejection Fraction MOD 4C 55.1 % LV Cardiac Index MOD 4C 1259.0 cm???/min???m??? LV Diastolic Length 4C 6.7 cm LV Systolic Length 4C 6.1 cm LV Diastolic Volume MOD 2C 43.6 cm??? LV Systolic Volume MOD 2C 28.3 cm??? LV Ejection Fraction MOD 2C 35.1 % LV Cardiac Index MOD 2C 574.7 cm???/min???m??? LV Diastolic Length 2C 7.1 cm LV Systolic Length 2C 6.9 cm LA Volume 48.3 cm??? 18 - 58 / 22 - 52 cm??? LA Volume Index 22.4 cm???/m??? 16 - 28 cm???/m??? M-MODE Aortic Root Diameter MM 3.4 cm AV Cusp Separation MM 2.5 cm DOPPLER AV Peak Velocity 137.9 cm/s AV Peak Gradient 7.6 mmHg MV Area PHT 2.9 cm??? Mitral E Point Velocity 55.0 cm/s Mitral A Point Velocity 83.8 cm/s Mitral E to A Ratio 0.7 MV Deceleration Time 266.0 ms TR Peak Velocity 247.7 cm/s TR Peak Gradient 24.5 mmHg Right Ventricular Systolic Press 27.7 mmHg FINDINGS Left Ventricle Left ventricular ejection fraction is estimated at 50-55 %. Moderately increased septal wall thickness. Moderately increased posterior wall thickness. Moderately increased left ventricular diastolic diameter. No obvious regional wall motion abnormalities. Right Ventricle Normal right ventricular size and function. Right ventricular systolic pressure within normal limits. Right Atrium Normal right atrial size. No right atrial thrombus or mass seen. Left Atrium Normal left atrial size. No left atrial thrombus or mass present. Mitral Valve Structurally normal mitral valve. No mitral stenosis, regurgitation or prolapse. Aortic Valve Trileaflet aortic valve. No aortic valve stenosis or regurgitation. Tricuspid Valve Structurally normal tricuspid valve. Mild tricuspid regurgitation. Pulmonic Valve Structurally normal pulmonic valve. No pulmonic regurgitation. Pericardium No pericardial or pleural effusion. Aorta Normal size aortic root and proximal ascending aorta. CONCLUSIONS Normal LV function Previewed by: Dr. Tod Forrester MD (Electronically Signed) Final Date: 04 February 2024 16:54
--- NOTE | 2024-02-04 16:56 | P.DS ---
Providers Date of admission: 02/02/24 14:46 Attending physician: Reddy Dorsey MD Discharge Diagnosis: 1. Acute encephalopathy likely polypharmacy, resolved 2. Mild respiratory acidosis, resolved 3. Bradycardia, resolved 4. Hyperglycemia 5. Ischemic cardiomyopathy, not in exacerbation 6. CAD status post stent 7. Crohn's disease Hospital Course: 58-year-old female with a history of CAD s/p stent, ischemic cardiomyopathy s/p AICD, fibromyalgia, hypertension, Crohn's disease, anxiety, depression, arthri tis presented to the ER with altered mental status. Patient was unable to provide history at the time of admission. Per ER report, patient was doing well and was at baseline mentation before going to the bed on 02/01/2024 and was later somnolent and was not waking up to sternal rub by her daughter. In the ED, temperature was 96.2, pulse 62, respiratory rate 14, blood pressure 146/78, saturating at 99% on room air. EKG shows atrial paced rhythm, no significant ST-T wave changes. Chest x-ray does not show any acute opacities. Head CT did not show any acute process. Urine tox is negative. patient was given 2 mg of IV Narcan without any improvement. Patient was admitted for acute encephalopathy, likely in the setting of polypharmacy versus other metabolic causes. Patient on multiple sedating medications including topiramate, baclofen and gabapentin which were put on hold. Patient returned to her baseline mentation within 36 hours after admission. Neurology was consulted. Metabolic etiology was essentially ruled out. Routine EEG is abnormal. The background slowing suggestive of mild encephalopathy. There is no focal slowing, [employer] discharge or seizure on the EEG. MRI of the brain was cancel secondary to AICD. Cardiology was consulted since patient had significant cardiovascular history and AICD placement. AICD interrogation was normal. Echocardiogram was done on 02/04/2024. Results are pending. However patient would like to get discharged and would want to follow-up with cardiology for result on an outpatient basis. Otherwise, patient stable. No complaint of chest pain, shortness of breath, dizziness, abdominal pain. Patient is advised to follow up with her neurologist for repeat EEG and MRI of the brain compatible with AICD and any necessary medication adjustments. Patient to follow up with cardiology for echocardiogram results. Patient instruction: Patient advised to follow-up with her PCP in 1 to 2 days, her outpatient neurologist within 1 week and cardiology within 1 week. Home medications have been resumed and advised to take them as directed. No new medication added. Vital signs reviewed. Gen: in no apparent distress, resting comfortably in bed Eyes: PERRL, no scleral injection or icterus HENT: normocephalic, atraumatic, good hearing acuity, moist mucous membranes Neck: full range of motion Resp: CTAB, no rales, rhonchi, or wheezes CVS: normal S1 and S2, no murmurs, rubs or gallops, no edema GI: soft, NTTP, ND, no hepatosplenomegaly : no suprapubic tenderness, no CVAT, mendoza catheter is not present MSK: no clubbing, no cyanosis, no noted contractures of extremities Skin: no noted rashes, petechiae; temperature of skin is appropriate Neuro: moving all extremities without signs of weakness, CN II-XII intact Psych: cooperative, euthymic mood, insight and judgment intact Consults: 02/02/24 15:15 Consult Physician Routine Consulting Provider: David Hinojosa Consult Reason/Comments: encephalopathy, possible polypharmacy Do you want consulting provider notified?: Yes 02/03/24 16:29 Consult Physician Routine Consulting Provider: Adolfo Mcgrath Consult Reason/Comments: Out of hospital cardiac syncope Do you want consulting provider notified?: Yes Primary care physician: Salvador Kelley, DO Hospital Course: I have seen and evaluated the patient today. Discussed with the resident and agree with the residents finding and plan as documented in the resident's note. Patient feels back at baseline. Discussed with Dr. Hinojosa, unable to MRI due to AICD, recommends outpatient Neurology follow up and no medication adjustment. AICD interrogated, no events per RN. Echo is pending. Patient adamant about leaving. Plans for discharge home PCP follow up in 1-2 days, Neurologist at [facility] in 1 week and Cardiology in 1 week to follow up results of Echo. This complex discharge took 35 minutes to complete. Patient Condition at Discharge: Stable Plan - Discharge Summary New Discharge Prescriptions: Continue Adalimumab [Humira(Cf) Pen] 40 mg SQ Q7D Alendronate Sodium 70 mg PO Q7D Atorvastatin [Lipitor] 80 mg PO DAILY busPIRone HCL 15 mg PO BID Diphenoxylate HCl/Atropine [Lomotil 2.5-0.025 mg Tablet] 1 tab PO QID PRN PRN Reason: Diarrhea Magnesium Oxide 400 mg PO DAILY Sacubitril/Valsartan [Entresto 49 mg-51 mg Tablet] 1 tab PO BID Topiramate [Topiramate ER] 25 mg PO DAILY Acetaminophen [Tylenol 8 Hour] 1,300 mg PO Q8H PRN PRN Reason: Pain Gabapentin [Neurontin] 400 mg PO TID Docusate [Colace] 100 mg PO DIRECTED PRN PRN Reason: Constipation polyethylene glycoL 3350 [Miralax] 17 gm PO DIRECTED PRN PRN Reason: Constipation buPROPion HCL [buPROPion HCL SR] 150 mg PO BID Ergocalciferol [Vitamin D2 (1250 Mcg = 33541 Iu)] 1,250 mcg PO Q7D Prochlorperazine [Compazine] 10 mg PO Q8H PRN PRN Reason: Nausea Spironolactone [Aldactone] 25 mg PO DAILY Triamcinolone 0.5% Cream [Kenalog 0.5% Cream] 1 applic TOPICAL QID Aspirin 81 mg PO DAILY 30 Days #30 chew Famotidine [Pepcid] 20 mg PO BID Rivaroxaban [Xarelto] 2.5 mg PO BID carvediloL [Coreg] 18.75 mg PO BID-W/MEALS Ezetimibe [Zetia] 10 mg PO DAILY Dicyclomine [Bentyl] 10 mg PO QID Baclofen [Lioresal] 20 mg PO TID Dapagliflozin Propanediol [Farxiga] 10 mg PO DAILY Rimegepant Sulfate [Nurtec Odt] 75 mg PO DAILY PRN PRN Reason: Migraine Headache Hydrocortisone [Anusol-Hc] 1 applic RECTAL DIRECTED PRN PRN Reason: rectal pain Mesalamine [Canasa] 1 unit RECTAL DIRECTED Discharge Medication List Adalimumab [Humira(Cf) Pen] 40 mg SQ Q7D 01/11/21 [History] Alendronate Sodium 70 mg PO Q7D 01/11/21 [History] Atorvastatin [Lipitor] 80 mg PO DAILY 01/11/21 [History] Diphenoxylate HCl/Atropine [Lomotil 2.5-0.025 mg Tablet] 1 tab PO QID PRN 01/11/21 [History] Ergocalciferol [Vitamin D2 (1250 Mcg = 83966 Iu)] 1,250 mcg PO Q7D 01/11/21 [History] Magnesium Oxide 400 mg PO DAILY 01/11/21 [History] Prochlorperazine [Compazine] 10 mg PO Q8H PRN 01/11/21 [History] Spironolactone [Aldactone] 25 mg PO DAILY 01/11/21 [History] Triamcinolone 0.5% Cream [Kenalog 0.5% Cream] 1 applic TOPICAL QID 01/11/21 [H istory] buPROPion HCL [buPROPion HCL SR] 150 mg PO BID 01/11/21 [History] busPIRone HCL 15 mg PO BID 01/11/21 [History] Aspirin 81 mg PO DAILY 30 Days #30 chew 01/16/21 [Rx] Ezetimibe [Zetia] 10 mg PO DAILY 05/03/22 [History] Famotidine [Pepcid] 20 mg PO BID 05/03/22 [History] Rivaroxaban [Xarelto] 2.5 mg PO BID 05/03/22 [History] Sacubitril/Valsartan [Entresto 49 mg-51 mg Tablet] 1 tab PO BID 05/03/22 [History] carvediloL [Coreg] 18.75 mg PO BID-W/MEALS 05/03/22 [History] Acetaminophen [Tylenol 8 Hour] 1,300 mg PO Q8H PRN 11/15/23 [History] Baclofen [Lioresal] 20 mg PO TID 11/15/23 [History] Dicyclomine [Bentyl] 10 mg PO QID 11/15/23 [History] Gabapentin [Neurontin] 400 mg PO TID 11/15/23 [History] Topiramate [Topiramate ER] 25 mg PO DAILY 11/15/23 [History] Dapagliflozin Propanediol [Farxiga] 10 mg PO DAILY 02/02/24 [History] Docusate [Colace] 100 mg PO DIRECTED PRN 02/02/24 [History] Hydrocortisone [Anusol-Hc] 1 applic RECTAL DIRECTED PRN 02/02/24 [History] Mesalamine [Canasa] 1 unit RECTAL DIRECTED 02/02/24 [History] Rimegepant Sulfate [Nurtec Odt] 75 mg PO DAILY PRN 02/02/24 [History] polyethylene glycoL 3350 [Miralax] 17 gm PO DIRECTED PRN 02/02/24 [History] Follow up Appointment(s)/Referral(s): Nils Lawrence MD [STAFF PHYSICIAN] - 1 Week (Please call to set up appointment to be seen in 1 week) Salvador Kelley DO [Primary Care Provider] - 1-2 days (Please call to set up appointment to be seen in 1-2 days ) Patient Instructions/Handouts: Altered Mental Status (GEN) Activity/Diet/Wound Care/Special Instructions: Please follow up your PCP in 1-2 days Please follow up with you neurologist within 1 week. Discharge Disposition: HOME SELF-CARE
== END 2024-02-04 17:00 | disposition home or self-care (01) ==
LOC: EC 12:51 → SUPCPDRO 12:51 → 3SCARD 14:46
PROVIDERS: ADMIT Student in an Organized Health Care Education/Training Program; ATTEND Student in an Organized Health Care Education/Training Program
DX: G93.40 Encephalopathy, unspecified (principal); R73.9 Hyperglycemia, unspecified; K21.9 Gastro-esophageal reflux disease without esophagitis; E78.5 Hyperlipidemia, unspecified; I10 Essential (primary) hypertension; F32.A Depression, unspecified; F41.9 Anxiety disorder, unspecified; I25.10 Atherosclerotic heart disease of native coronary artery without angina pectoris; I42.0 Dilated cardiomyopathy; I47.19 Other supraventricular tachycardia; K50.90 Crohn's disease, unspecified, without complications; I25.5 Ischemic cardiomyopathy; E87.29 Other acidosis; R00.1 Bradycardia, unspecified; M19.90 Unspecified osteoarthritis, unspecified site; E66.9 Obesity, unspecified; Z68.33 Body mass index [BMI] 33.0-33.9, adult; Z87.891 Personal history of nicotine dependence; Z95.5 Presence of coronary angioplasty implant and graft; Z95.810 Presence of automatic (implantable) cardiac defibrillator; Z79.01 Long term (current) use of anticoagulants; Z79.82 Long term (current) use of aspirin; Z79.899 Other long term (current) drug therapy
CPT/HCPCS: 36415; 70450; 71045; 80048; 80053; 80143; 80179; 80306; 80320; 81003; 82140; 82607; 82803; 83735; 84443; 84484; 85025; 85610; 85730; 93005; 93306; 95816; 96361; 96372; 96374; 99285

== ENCOUNTER → 2024-11-06 | Outpatient (CLI) | payer OTHER ==
[2024-11-06 15:09] LABS: Basophils # (A) 0.03 X 10*3/uL (0.00-0.10); Basophils % (A) 0.3 %; Eosinophils # (A) 0.14 X 10*3/uL (0.04-0.35); Eosinophils % (A) 1.3 %; HCT 39.6 % (37.2-46.3); HGB 12.9 g/dL (12.0-15.0); Lymphocytes # (A) 3.93 X 10*3/uL (0.90-5.00); Lymphocytes % (A) 36.2 %; MCH 31.4 pg (27.0-32.0); MCHC 32.6 g/dL (32.0-37.0); MCV 96.4 FL (80.0-97.0); Mean Platelet Volume 10.1 FL (9.5-12.2); Monocytes # (A) 0.75 X 10*3/uL (0.20-1.00); Monocytes % (A) 6.9 %; NRBC Per 100 WBC 0 X 10*3/uL (0.00-0.01); Neutrophils # (A) 5.98 X 10*3/uL (1.80-7.70); Neutrophils % (A) 55.1 %; Platelet Count 324 X 10*3/uL (140-440); RBC 4.11 X 10*6/uL (4.10-5.20); RDW 13.9 % (11.5-14.5); WBC 10.85 X 10*3/uL (4.50-10.00)
[2024-11-06 15:24] LABS: ALT 17 U/L (8-44); AST 17 U/L (13-35); Albumin/Globulin Ratio 1.25 Ratio (1.60-3.17); Alkaline Phosphatase 92 U/L (41-126); BUN/Creat Ratio 16.75 Ratio (12.00-20.00); Blood Urea Nitrogen 13.4 mg/dL (9.0-27.0); C Reactive Protein <0.30 mg/dL (0.00-0.80); Calcium 9.2 mg/dL (8.7-10.3); Carbon Dioxide 24.5 mmol/L (21.6-31.8); Chloride 103 mmol/L (96-109); Globulin 3.2 g/dL (1.6-3.3); Glucose 96 mg/dL (70-110); Potassium 4.1 mmol/L (3.5-5.5); Sodium 139 mmol/L (135-145); Total Bilirubin 0.4 mg/dL (0.3-1.2); Total Protein 7.2 g/dL (6.2-8.2)
== END | disposition home or self-care (01) ==
LOC: LABWHC1 09:06
PROVIDERS: ATTEND Internal Medicine Gastroenterology
DX: K50.90 Crohn's disease, unspecified, without complications (principal); E66.01 Morbid (severe) obesity due to excess calories; Z68.41 Body mass index [BMI] 40.0-44.9, adult
CPT/HCPCS: 36415; 80053; 83993; 85025; 86140

== ENCOUNTER → 2024-12-17 | Outpatient (CLI) | payer OTHER | END | disposition home or self-care (01) | LOC: LABWHC1 08:54 | PROVIDERS: ATTEND Internal Medicine Gastroenterology | DX: K50.90 Crohn's disease, unspecified, without complications (principal) | CPT/HCPCS: 36415; 86480 ==